=== PATIENT | male | born 1960 | race Caucasian/White ===

== ENCOUNTER 2024-06-13 08:31 | Emergency (ER) | payer OTHER, SELFPAY ==
[2024-06-13 08:32] VITALS: BP 119/80; PULSE 73; RESP 16; TEMP 36.2; O2SAT 97; BMI 39.9
--- NOTE | 2024-06-13 08:42 | EDS_ITS ---
HPI History of Present Illness Chief Complaint: Abscess Informant: patient Narrative Narrative: 64-year-old male presenting to the emergency room with chief complaint of abscess. Patient states that for about a month he has had some swelling in the right trapezius shoulder area. He made an appointment with dermatology. He has had a lipoma on left forearm and he felt it was similar. Few days before Robbi he began to notice that it was turning red and more painful. This progressively gotten worse and is presenting here today. He notes an allergy to Bactrim does not recall what the reaction was. No reported fevers. He states he does not have a pituitary gland and takes steroid medications. PFSH PFSH Home Medications ?Medication ?Instructions ?Recorded ?Last Taken ?Type doxycycline monohydrate 100 mg 100 mg PO BID #14 CAPSULES 06/13/24 Unknown Rx capsule oxycodone-acetaminophen 5 mg-325 1 tab PO Q6H PRN PRN Pain 3 days 06/13/24 Unknown Rx mg tablet #12 TABLETS Allergy/AdvReac Type Severity Reaction Status Date / Time sulfamethoxazole (From Allergy Unknown NEEDS Verified 06/13/24 08:34 Bactrim) FOLLOW-UP trimethoprim (From Bactrim) Allergy Unknown NEEDS Verified 06/13/24 08:34 FOLLOW-UP Social History Smoking Status: Current every day smoker tobacco type: cigarettes ROS ROS ED Constitutional Constitutional ED: Denies chills, fever(s) or weight loss Eyes Eyes: Denies change in vision or diplopia ENT ENT ED: Denies ear pain, rhinorrhea or sore throat Cardiovascular Cardiovascular: Denies chest pain, orthopnea, palpitations or racing heartbeat Respiratory/Chest Respiratory/Chest: Denies cough, dyspnea or orthopnea Gastrointestinal Gastrointestinal: Denies abdominal pain, diarrhea, nausea or vomiting Genitourinary Genitourinary ED: Denies dysuria, hematuria or urinary frequency Musculoskeletal Musculoskeletal: Denies arthralgias or myalgias Integumentary Reports abscess; Denies rash Neurologic Neurologic: Denies headache(s) or weakness Psychiatric Psychiatric: Denies anxiety, depression, suicidal ideation or suicidal thoughts Endocrine Endocrinology: Denies polydipsia, polyphagia or polyuria Allergic/Immunologic Allergic/Immunologic ED: Denies mouth swelling, tongue swelling or urticaria EXAM Physical Exam Const Vital Signs: 06/13/24 08:32 Temperature 97.2 F L Temperature Source Temporal Pulse Rate 73 Respiratory Rate 16 Blood Pressure 119/80 Blood Pressure Mean 93 Pulse Ox 97 Oxygen Delivery Method Room Air Positive well nourished and well developed General Appearance ED: well developed HEENT Reports normocephalic, head/scalp atraumatic and moist mucous membranes Eyes PERRL and EOMs intact bilaterally Neck no lymphadenopathy, supple and no JVD Resp normal respiratory effort and clear to auscultation bilaterally Cardio regular rate, regular rhythm and no murmurs GI normal to inspection, nondistended, normoactive bowel sounds and non-tender Palpation: soft Back/Spine no CVA tenderness and normal ROM Extremity normal to inspection General Extremety ED: Negative for edema General Extremity: Negative for edema Neuro oriented x3 and CN's II-XII intact bilaterally Sensorium / Orientation: alert Motor Exam: strength 5/5 throughout Psych mental status grossly normal Mood & Affect: Negative for depressed or tearful Skin no wounds Skin Narrative: There is a 3 cm rounded apparent abscess in the right trapezius midclavicular line region. There is some mild surrounding erythema. Tender to palpation. MDM MDM MDM Narrative Medical decision making narrative: Differential diagnosis includes but not limited to abscess infected sebaceous cyst ingrown hair cellulitis Patient provided informed consent for incision and drainage. Wound was washed with Betadine and allowed to dry. 1% lidocaine was used to anesthetize the area. A cruciate incision was made with an 11 blade. I was able to dissect down to the cyst but the cyst appears to have already ruptured. Thick fluid consistent with a sebaceous cyst was removed. Pieces of the cell wall were removed. Irrigation was performed and packing with iodoform gauze was placed. Patient was placed on doxycycline. Wound culture was obtained. He was advised this will most likely recur and to follow-up with dermatology. 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 This is more of a localized sebaceous cyst infection rather than systemic. History & Record Review Discussion w/independent historian: Patient Discharge Plan Triage Chief Complaint: Abscess ED Provider: Rashel Méndez Dx/Rx/DC Orders Clinical Impression: Infected sebaceous cyst of skin Instructions: Epidermoid Cyst Infect Antibiotics Prescriptions: New oxycodone-acetaminophen 5-325 mg tablet 1 tab PO Q6H PRN PRN (Reason: Pain) 3 Days Qty: 12 0RF doxycycline monohydrate 100 mg capsule 100 mg PO BID Qty: 14 0RF Primary Care Provider: Semaj Ray Referrals: Semaj Ray MD [Primary Care Provider] - Activity Restrictions/Additional Instructions: In 48 to 72 hours get in the shower and pull the packing. He will noticed that the wound continues to ooze over the next day or so. Please follow-up with dermatology as scheduled Print Language: Swazi Disposition Disposition: Home, Self Care
[2024-06-13] MEDS: Lidocaine 1% (20 ml mdv) 20 ML Vial INFILT (08:45)
[2024-06-13 09:37] VITALS: BP 160/62; PULSE 77; RESP 16; TEMP 36.8; O2SAT 99
== END 2024-06-13 09:42 | disposition home or self-care (01) ==
PROVIDERS: Emergency Provider Emergency Medicine; PCP Family Medicine; Visit Provider Emergency Medicine
DX: L72.3 Sebaceous cyst (principal); L02.413 Cutaneous abscess of right upper limb; F17.210 Nicotine dependence, cigarettes, uncomplicated
CPT/HCPCS: 10060; 87070; 87205; 99282

== ENCOUNTER 2024-12-11 18:52 | Emergency (ER) | payer OTHER, SELFPAY ==
[2024-12-11 18:52] VITALS: BP 130/76; PULSE 86; RESP 18; TEMP 36.9; O2SAT 98; BMI 41.2
--- NOTE | 2024-12-11 19:17 | EDS_ITS ---
HPI History of Present Illness Chief Complaint: General Illness Detail of Chief Complaint: Bilateral flank/back pain, dysuria and right inguinal pain Informant: patient Onset/Context/Timing Onset: Days Context: Sudden Onset Timing: Continuous Quality: Pain Location: Right and left lower back/flank and right groin Current Severity: Mild Maximum Severity: Moderate Worsened by: Movement Relieved by: If he lies on 1 side the pain that is improved. He then rotates. Associated Symptoms Associated Symptoms: Dysuria and frequency Narrative Narrative: Patient is a 64-year-old male. He has history of renal/ureteral lithiasis. He presents because of fatigue, bilateral back pain that is worse with movement and the side that he is lying on. When the side gets up his pain-free he rotates. He denies bowel bladder dysfunction. He denies radicular pain. Denies foot drop. He denies rash. Does have history of renal ureterolithiasis. There is no history of trauma. Has not noted fullness or mass in the groin area. He denies fever, chills night sweats. Denies weight gain or weight loss. He denies bone pain. Prior similar symptoms: No Recent Illness/Hospitalization: No PFSH PFS Medical History Type 2 diabetes mellitus Home Medications ?Medication ?Instructions ?Recorded ?Last Taken ?Type doxycycline monohydrate 100 mg 100 mg PO BID #14 CAPSU LES 06/13/24 Unknown Rx capsule oxycodone-acetaminophen 5 mg-325 1 tab PO Q6H PRN PRN Pain 3 days 06/13/24 Unknown Rx mg tablet #12 TABLETS Allergy/AdvReac Type Severity Reaction Status Date / Time sulfamethoxazole (From Allergy Unknown NEEDS Verified 12/11/24 18:53 Bactrim) FOLLOW-UP trimethoprim (From Bactrim) Allergy Unknown NEEDS Verified 12/11/24 18:53 FOLLOW-UP Family History no significant family his Surgical History History of surgical removal of pituitary gland Social History Smoking Status: Former smoker ROS ROS ED Constitutional Constitutional ED: Denies chills, fever(s), subjective, sweats or weight loss Eyes Eyes: Denies blurry vision or change in vision Cardiovascular Cardiovascular: Denies chest pain or palpitations Respiratory/Chest Respiratory/Chest: Denies cough, dyspnea or dyspnea on exertion Gastrointestinal Gastrointestinal: Reports abdominal pain; Denies constipation, diarrhea, melena, nausea or vomiting Genitourinary Genitourinary ED: Reports dysuria, hematuria and urinary frequency Musculoskeletal Musculoskeletal: Reports back pain; Denies arthralgias, myalgias or neck pain Integumentary Denies rash Neurologic Neurologic: Reports other Details: Patient reports fatigue. He states he has been seeing his after work because he is in the hospital. ; Denies headache(s) or paresthesias Psychiatric Psychiatric: Denies anxiety or depression Hematologic/Lymphatic Hematologic/Lymphatic: Reports systems reviewed and no addt'l complaints, except as documented EXAM Physical Exam Const Vital Signs: 12/11/24 18:52 12/11/24 19:07 Temperature 98.5 F Temperature Source Oral Pulse Rate 86 Respiratory Rate 18 Respiratory Effort Normal Respiratory Pattern Normal Blood Pressure 130/76 H Blood Pressure Mean 94 Pulse Ox 98 Oxygen Delivery Method Room Air Positive well nourished and well developed Constitutional Narrative: BMI is 41.2. Blood pressure slightly elevated. General Appearance ED: well developed HEENT Reports moist mucous membranes HEENT Narrative: HEENT exam is grossly unremarkable. Eyes PERRL and EOMs intact bilaterally General Eye ED: Negative for pale conjunctiva or scleral icterus Neck supple and no JVD Resp normal respiratory effort and clear to auscultation bilaterally Cardio regular rate, regular rhythm, S1 normal heart sound, S2 normal heart sound and no murmurs GI normal to inspection, nondistended, normoactive bowel sounds, non-distended and no masses; Negative for non-tender or hepatosplenomegaly GI Narrative: There are some mild tenderness in suprapubic area and right upper quadrant. He is status post cholecystectomy. Auscultation: hypoactive bowel sounds Palpation: soft Rectal Exam: normal sphincter tone, prostate normal and other Other Details: Stool is brown. There is no obvious fissures fistulas or hemorrhoids noted. This was performed because he reported bright red blood after bowel movement. He has had fissure and anal in the past. Narrative: Testes are centered bilaterally. No testicular tenderness. There are some tenderness of the vas deferens on the right. There is no evidence of a hernia. There is no inguinal lymphadenopathy. Back/Spine no CVA tenderness Extremity normal to inspection General Extremety ED: Negative for edema or tenderness General Extremity: Negative for edema Neuro oriented x3 Sensorium / Orientation: alert Psych mental status grossly normal Skin no rashes or lesions noted, no wounds and skin turgor normal General Skin Exam: elasticity normal MDM MDM MDM Narrative Medical decision making narrative: This may be fatigue also need to worry about sepsis UTI malnourishment electrolyte abnormality with him being diabetic we will obtain competence metabolic panel to assess glucose, CO2 anion gap and renal function. Lab Data Attestation: I reviewed the patient's lab results. Lab results narrative: CBC is unremarkable. Competence of metabolic panel is normal. UA is positive for protein, occult blood and leukoesterase on macro. Nitrites was negative. Micro is pending. Labs: Laboratory Results - last 24 hr 12/11/24 12/11/24 19:06 19:50 WBC 8.5 RBC 5.62 Hgb 16.3 Hct 47.3 MCV 84.2 MCH 29.0 MCHC 34.5 RDW Std Deviation 36.7 RDW Coeff of Halima 12.2 Plt Count 194 MPV 10.8 Immature Gran % (Auto) 0.200 Neut % (Auto) 44.1 L Lymph % (Auto) 39.9 [place] % (Auto) 12.7 H Eos % (Auto) 2.5 Baso % (Auto) 0.6 Absolute Neuts (auto) 3.8 Absolute Lymphs (auto) 3.40 Nucleated RBC % 0 Sodium 139 Potassium 4.5 Chloride 101 Carbon Dioxide 25.5 Anion Gap 13 BUN 12 Creatinine 1.19 Estim Creat Clear Calc 84.70 Est GFR (MDRD) Non-Af 69 BUN/Creatinine Ratio 10.1 Glucose 82 Calcium 9.7 Total Bilirubin 0.55 AST 32 ALT 17 Alkaline Phosphatase 86 Total Protein 7.1 Albumin 3.8 Globulin 3.4 Albumin/Globulin Ratio 1.1 Urine Color Yellow Urine Clarity Clear Urine pH 6.0 Ur Specific [place] 1.015 Urine Protein 30 H Urine Glucose (UA) Normal Urine Ketones Negative Urine Occult Blood 10 H Urine Nitrite Negative Urine Bilirubin Negative Urine Urobilinogen Normal Ur Leukocyte Esterase 100 H Urine RBC 0-5 SEEN Urine WBC 10-25 SEEN Ur Squamous Epith Cells 0-5 SEEN Urine Bacteria 0 SEEN Urine Mucus RARE Microscopic Veals pyuria without bacteria. Therefore will not treat. Patient been informed of results. She was offered pain medicine, which she declined. Will discharge patient to home. He did report improvement after receiving IV ketorolac. Treatment and Re-Evaluation :: Documented in the laboratory section of the EMR Discharge Plan Triage Chief Complaint: General Illness ED Provider: Aidan Workman Dx/Rx/DC Orders Clinical Impression: Acute myofascial strain of lumbosacral region, Fatigue, Pyuria, Type 2 diabetes mellitus, Right inguinal pain Instructions: ED Back Sprain/Strain Prescriptions: No Action oxycodone-acetaminophen 5-325 mg tablet 1 tab PO Q6H PRN PRN (Reason: Pain) 3 Days Qty: 12 0RF doxycycline monohydrate 100 mg capsule 100 mg PO BID Qty: 14 0RF Primary Care Provider: Brayan Andrea Referrals: Brayan Andrea, [employer]IST[facility] [Primary Care Provider] - 3-5 Days if not improving Activity Restrictions/Additional Instructions: 1. Apply ice to your lower back 6-8 times a day 2. If you continue to have pain with urination follow-up with your doctor and have repeat tests Print Language: Wolof Disposition Disposition: Home, Self Care
[2024-12-11] MEDS: Ketorolac 15 MG/ML Vial IV (19:23)
--- OUTSIDE RECORDS SUMMARY | 2024-12-11 19:23 | XMS RPT_ITS | CCD ---
Author Organization [facility] Care Team Providers Care Test Tech Name Role Phone Althea Yang Unavailable Unavailable Unavailable Unavailable Unavailable Jade Ram RN Unavailable Unavailable Althea Yang MD Primary Care Provider Althea Yang Unavailable Peri Wallace Unavailable Althea Yang MD Primary Care Provider [phone] MD PERI WALLACE Attending UnavailDr. Althea Gonzales Primary Care Unavailab ALTHEA Ledezma Referring Unavailable ALTHEA YANG Attending Unavailable ALTHEA YANG Primary Care Unavailable Jade Ram RN Unavailable Unavailable Althea Yang MD Primary Care Provider ALTHEA YANG Primary Care Unavailable ALTHEA YANG Primary Care Unavailable ALTHEA YANG Primary Care Unavailable TACOS ASH Attending Unavailable LULA ERNST Referring Unavaila ALTHEA Murray Primary Care Unavailable Althea Yang MD Unavailable Victoria Goyal Primary Care Provider Althea Yang Primary Care Unavailable Rashel Méndez Attending Unavailable Althea Yang MD Unavailable Victoria Goyal Primary Care Provider ALTHEA YANG Attending Unavailable ALTHEA YANG Referring Unavailable ALTHEA YANG Primary Care Unavailable VICTORIA ALEXANDRE Attending Unavailable VICTORIA ALEXANDRE Primary Care Unavailable VICTORIA ALEXANDRE Attending Unavailable VICTORIA ALEXANDRE Primary Care Unavailable VICTORIA ALEXANDRE Attending Unavailable VICTORIA ALEXANDRE Primary Care Unavailable VICTORIA ALEXANDRE Attending Unavailable VICTORIA ALEXANDRE Primary Care Unavailable VICTORIA ALEXANDRE Attending Unavailable VICTORIA ALEXANDRE Primary Care Unavailable PEMA MAGUIRE Attending Unavailable ALTHEA YANG Referring Unavailable ALTHEA YANG Primary Care Unavailable ALTHEA YANG Referring Unavailable ALTHEA YANG Primary Care Unavailable AMALIA KNIGHT Attending Unavailable Allergies Allergy Classification Reported Allergen(s) Allergy Type Date of Onset Reaction(s) Facility Sulfamethoxazole / Trimethoprim (1 source) Sulfamethoxazole / Trimethoprim; Translations: [Bactrim] Drug Allergy [facility] Work Phone: (20 sources) Sulfamethoxazole / Trimethoprim; Translations: [Bactrim] Drug Allergy 07-26-19 23 Fever [facility] (11 sources) Sulfamethoxazole / Trimethoprim; Translations: [SULFAMETHOXAZOLE-TR IMETHOPRIM] Drug Allergy 06-13-20 14 Fever, Headache [facility] (1 source) Sulfamethoxazole / Trimethoprim Drug Allergy Unknown [facility] (15 sources) aspirin / butalbital / caffeine; Translations: [BUTALBITAL-ASPIRIN- CAFFEINE] Drug Allergy 01-19-20 14 Unknown [facility] (1 source) Sulfamethoxazole Drug Allergy 06-13-20 24 [facility] (2 sources) Trimethoprim; Translations: [TRIMETHOPRIM] Drug Allergy 06-13-20 24 [facility] (2 sources) Trimethoprim Drug Allergy 06-13-20 24 Unknown [facility] Work Phone: Medications Current Medications Medication Drug Class(es) Dates Sig (Normalized) Sig (Original) amoxicillin 875 mg / clavulanate 125 mg oral tablet (1 source) Penicillin-class Antibacterial Start: 05-13-2022 End: 05-20-2022 take 1 tablet by mouth once daily Amoxicillin-Pot Clavulanate 875-125 MG Oral Tablet TAKE 1 TABLET EVERY 12 HOURS DAILY. Quantity: 14 Refills: 0 Ordered: 13-May-2022 Nabeel Capone Start : 13-May-2022 End : 20-May-2022 Active aspirin 81 mg delayed release oral tablet (20 sources) Platelet Aggregation Inhibitor, Nonsteroidal Anti-inflammatory Drug Start: 07-17-2019 take 1 tablet by mouth once daily aspirin 81 mg EC tablet Take 1 tablet (81 mg) by mouth once daily. 07/17/2019 Active take 1 tablet by mouth once jade y aspirin 81 MG Tab Take 1 tablet by mouth daily. Active take 9 tablets by mouth once leeann ly aspirin 81 mg oral tablet ; orally once a day Quantity: 0 Refills: 0 Ordered: 24-Mar-2020 Judith Quarles Generic Substitution Allowed celecoxib 200 mg oral capsule (2 sources) Nonsteroidal Anti-inflammatory Drug Start: 02-17-2024 End: 03-18-2024 take 1 capsule by mouth once daily celecoxib (CeleBREX) 200 mg capsule Indications: Arthropathy of cervical facet joint Take 1 capsule (200 mg) by mouth once daily. 30 capsule 02/17/2024 03/18/2024 Active cholecalciferol 0.125 mg oral tablet (20 sources) Vitamin D Start: 02-29-2020 take 1 tablet by mouth once daily cholecalciferol (Vitamin D-3) 5,000 Units tablet Take 1 tablet (125 mcg) by mouth once daily. 02/29/2020 Active Start: 02-29-2020 take 1 tablet by keely once daily cholecalciferol (Vitamin D-3) 25 MCG (1000 UT) tablet Take 1 tablet (25 mcg) by mouth once daily. 0 02/29/2020 Active End: 08-14-2023 take 1 capsule by mouth once daily cholecalciferol (Vitamin D-3) 10 MCG (400 UNIT) tablet Take 1 capsule by mouth once daily. 0 08/14/2023 Discontinued (Therapy completed) Vitamin D3 ; 400 0 orally once a day Quantity: 0 Refills: 0 Ordered: 19-May-2022 Amy Lucas Generic Substitution Allowed Cholecalciferol (vitamin D) 4000 Units capsule (8 sources) Cholecalciferol (vitamin D) 4000 Units capsule Take 2,000 Units by mouth daily. Active take 1 capsule by mouth once Cho lecalciferol (vitamin D) 4000 Units capsule Take 1 capsule by mouth daily. Per Dr. Sheffield, Pt. Is to decrease to 2,000 units per day starting 08/31/23. Active take 1 capsule by mouth once leeann ly Cholecalciferol (vitamin D) 4000 Units capsule Take 1 capsule by mouth. daily Active take 1 capsule by mouth once leeann ly Cholecalciferol (vitamin D) 4000 Units capsule Take 1 capsule by mouth. daily 0 Active take 1 capsule by mouth once leeann ly Cholecalciferol (vitamin D) 4000 Units capsule Take 4,000 Units by mouth. daily 0 Active clindamycin 300 mg oral capsule (2 sources) Lincosamide Antibacterial Start: 06-22-2024 End: 07-06-2024 take 1 capsule by mouth four times daily clindamycin (Cleocin) 300 mg capsule Indications: Abscess Take 1 capsule (300 mg) by mouth 4 times a day for 14 days. 28 capsule 1 06/22/2024 07/06/2024 Active esomeprazole 40 mg delayed release oral capsule (20 sources) Proton Pump Inhibitor Start: 07-17-2019 End: 08-19-2025 take 1 capsule by mouth once daily esomeprazole (NexIUM) [address] capsule Indications: Gastroesophageal reflux disease without esophagitis Take 1 capsule (40 mg) by mouth once daily. 90 capsule 3 08/19/2024 08/19/2025 Active take 1 capsule by mouth every ot her day esomeprazole 40 mg oral delayed release capsule ; 1 cap(s) orally every other day Quantity: 0 Refills: 0 Ordered: 19-May-2022 Amy Lucas Generic Substitution Allowed hydrocortisone 5 mg oral tablet (20 sources) Corticosteroid Start: 01-02-2024 End: 08-30-2024 Hydrocortisone 5 MG tablet Indications: Hypogonadotropic hypogonadism , Panhypopituitarism , Adrenal insufficiency TAKE 3 TABLETS BY MOUTH IN MORNING, 1 TABLET IN AFTERNOON, AND 1 TABLET IN EVENING. DOUBLE DOSE WHEN SICK DIRECTED. 450 tablet 4 08/30/2024 Active Start: 12-03-2022 Hydrocortisone 5 MG tablet Indications: Panhypopituitarism TAKE 3 TABLETS (15 MG) BY MOUTH IN MORNING, 1 TABLET (5 MG) IN AFTERNOON, AND 1 TABLET (5 MG) IN EVENING. DOUBLE DOSE WHEN SICK DIRECTED. 450 tablet 4 12/03/2022 Active Start: 03-19-2022 hydrocortisone 5 MG tablet Indications: Panhypopituitarism TAKE 3 TABLETS (15 MG) BY MOUTH IN MORNING, 1 TABLET (5 MG) IN AFTERNOON, AND 1 TABLET (5 MG) IN EVENING. DOUBLE DOSE WHEN SICK DIRECTED. 450 tablet 2 03/19/2022 Active Start: 07-17-2019 take 1 tablet by keely th three times daily hydrocortisone (Cortef) 5 mg tablet Take 1 tablet (5 mg) by mouth 3 times a day. Patient reported that if he is sick, he can take up to double the amount he normally does. 07/17/2019 Active Start: 07-17-2019 take 1 tablet by keely th twice daily hydrocortisone (Cortef) 5 mg tablet Take 1 tablet (5 mg) by mouth 2 times a day. 0 07/17/2019 Active Start: 07-17-2019 take 2.5 tablets by mouth once daily in the morning, then take 1 tablet by mouth once daily in the evening Hydrocortisone 5 MG Oral Tablet 2.5 tabs qam, 1 qnoon, 1 q evening Quantity: 0 Refills: 0 Ordered: 17-Jul-2019 DO Start : 17-Jul-2019 Active take 15 mg by mouth once daily hydrocortisone ; 15 milligram(s) orally once a day Quantity: 0 Refills: 0 Ordered: 24-Mar-2020 Cutlip, Judith Generic Substitution Allowed levothyroxine sodium 0.2 mg oral tablet (20 sources) l-Thyroxine Start: 07-17-2019 End: 08-30-2024 take 1 tablet by mouth once daily levothyroxine (Synthroid, Levoxyl) 200 mcg tablet Take 1 tablet (200 mcg) by mouth once daily. 07/17/2019 Active take 1 tablet by mouth once jade y levothyroxine 200 mcg (0.2 mg) oral tablet ; 1 tab(s) orally once a day Quantity: 0 Refills: 0 Ordered: 24-Mar-2020 Cutlip, Judith Generic Substitution Allowed metoprolol tartrate 25 mg oral tablet (20 sources) beta-Adrenergic Lucy Start: 07-17-2019 End: 08-19-2025 take 0.5 tablet by mouth twice daily metoprolol tartrate (Lopressor) 25 mg tablet Indications: Primary hypertension Take 0.5 tablets (12.5 mg) by mouth 2 times a day. 90 tablet 3 08/19/2024 08/19/2025 Active Start: 07-17-2019 End: 08-14-2023 take 1 tablet by mouth twice daily metoprolol tartrate (Lopressor) 25 mg tablet Take 1 tablet (25 mg) by mouth twice a day. 0 07/17/2019 08/14/2023 Discontinued (Reorder) metoprolol 25 MG tab regular release Indications: Panhypopituitarism take 12.5 mg by mouth 2 times daily. 0 Active montelukast 10 mg oral tablet (1 source) Leukotriene Receptor Antagonist Start: 11-19-2024 End: 05-18-2025 take 1 tablet by mouth once daily at bedtime montelukast (Singulair) 10 mg tablet Indications: Allergy, initial encounter Take 1 tablet (10 mg) by mouth once daily at bedtime. 30 tablet 5 11/19/2024 05/18/2025 Active nirmatrelvir-riton avir (Paxlovid) 300 mg (150 mg x 2)-100 mg tablet therapy pack (2 sources) Start: 06-23-2023 End: 06-28-2023 take 3 tablets by mouth twice daily nirmatrelvir-ritona vir (Paxlovid) 300 mg (150 mg x 2)-100 mg tablet therapy pack Indications: COVID-19 Take 3 tablets by mouth 2 times a day for 5 days. Follow the instructions on the package 30 tablet 0 06/23/2023 06/28/2023 Active rosuvastatin calcium 10 mg oral tablet (20 sources) HMG-CoA Reductase Inhibitor Start: 02-21-2015 End: 08-19-2025 take 1 tablet by mouth once daily at bedtime rosuvastatin (Crestor) 10 mg tablet Indications: Familial hyperlipidemia Take 1 tablet (10 mg) by mouth once daily at bedtime. 90 tablet 3 08/19/2024 08/19/2025 Active semaglutide 0.25 mg or 0.5 mg (2 mg/3 mL) pen injector (4 sources) Start: 08-19-2024 End: 02-03-2025 inject 0.5 mg by subcutaneous injection every week semaglutide 0.25 mg or 0.5 mg (2 mg/3 mL) pen injector Indications: Type 2 diabetes mellitus without complication, without long-term current use of insulin Inject 0.5 mg under the skin 1 (one) time per week. 9 mL 1 08/19/2024 02/03/2025 Active Start: 08-19-2024 End: 02-03-2025 inject 0.5 mg by subcutaneous injection every week semaglutide 0.25 mg or 0.5 mg (2 mg/3 mL) pen injector Indications: Type 2 diabetes mellitus without complication, without long-term current use of insulin (Multi) Inject 0.5 mg under the skin 1 (one) time per week. 9 mL 1 08/19/2024 02/03/2025 Active Start: 10-07-2022 End: 11-20-2022 inject 0.25 mg by subcutaneous injection every week, then inject 0.5 mg by subcutaneous injection every week semaglutide 0.25 mg or 0.5 mg (2 mg/3 mL) pen injector Indications: Type 2 diabetes mellitus without complication, without long-term current use of insulin (CMS/HCC) Inject 0.25 mg under the skin 1 (one) time per week for 14 days, THEN 0.5 mg 1 (one) time per week. 3 mL 1 10/07/2022 11/20/2022 Active Semaglutide, 1 MG/DOSE, 4 MG/3ML Solution Pen-injector (2 sources) Start: 11-30-2023 End: 11-29-2024 Semaglutide, 1 MG/DOSE, 4 MG/3ML Solution Pen-injector Inject 1 mg under the skin. 11/30/2023 11/29/2024 Active somatropin 12 mg cartridge (20 sources) Recombinant Human Growth Hormone Start: 08-30-2024 Somatropin (Humatrop e) 12 MG Cartridge DIAL AND INJECT (0.4) MG UNDERNEATH THE SKIN DAILY. 1 Each 08/30/2024 Active Start: 02-25-2023 End: 08-22-2023 inject 0.4 mg by subcutaneous injection once daily Somatropin (Humatrope) 6 MG Cartridge Indications: Growth hormone deficiency (human) Inject 0.4 mg under the skin daily. 8 Each 02/25/2023 08/22/2023 Discontinued (Discontinued by another clinician (suppress cancel msg)) Start: 03-12-2022 End: 08-16-2022 Somatropin 6 MG Cartridge In ject 0.4 mg as directed daily. 8 Each 3 08/16/2022 Active Start: 07-17-2019 End: 08-19-2024 somatropin (Humatrope) 12 mg (36 unit) cartridge Inject 0.4 mg as directed in the morning. 07/17/2019 08/19/2024 Discontinued (Therapy completed) Start: 07-17-2019 Humatrope 12 M G SOLR INJECT 0.4 MG Daily Quantity: 0 Refills: 0 Ordered: 17-Jul-2019 DO Start : 17-Jul-2019 Active somatropin (Shona trope) 12 mg (36 unit) cartridge Inject as directed. , INJECT 0.2 MG JADE Active 60 actuat testosterone 20.25 mg/actuat topical gel (20 sources) Androgen Start: 02-11-2024 End: 08-30-2024 Testosterone 1.62 % Gel Indications: Hypogonadotropic hypogonadism , Panhypopituitarism , Adrenal insufficiency APPLY 2 PUMPS TO SKIN DAILY 75 g 5 08/30/2024 Active Start: 07-14-2023 Testosterone 1 .62 % Gel Indications: Hypogonadotropic hypogonadism , Panhypopituitarism , Adrenal insufficiency APPLY 2 PUMPS TO SKIN DAILY 75 g 5 07/14/2023 Active Start: 07-05-2022 End: 12-03-2022 Testosterone 20.25 MG/ACT (1 .62%) Gel gel Indications: Hypogonadotropic hypogonadism , Panhypopituitarism , Adrenal insufficiency APPLY 2 PUMPS ON SKIN DAILY 75 g 5 07/05/2022 12/03/2022 Active Start: 12-19-2021 End: 05-21-2022 Testosterone 20.25 MG/ACT (1 .62%) Gel gel Indications: Hypogonadotropic hypogonadism , Panhypopituitarism , Adrenal insufficiency APPLY 2 PUMPS ON SKIN DAILY 75 g 5 12/19/2021 05/21/2022 Active Start: 02-29-2020 testosterone 2 0.25 mg/1.25 gram (1.62 %) gel in metered-dose pump Place 1 Application on the skin in the morning. 02/29/2020 Active Start: 02-29-2020 Testosterone 2 0.25 MG/ACT (1.62%) Transdermal Gel APPLY TWO PUMP PRESSES ONE TIME DAILY DIRECTED Quantity: 0 Refills: 0 Ordered: 29-Feb-2020 DO Start : 29-Feb-2020 Active testosterone 20. 25 mg/1.25 g (1.62%) transdermal gel ; 1 packet(s) orally 2 times a day Quantity: 0 Refills: 0 Ordered: 19-May-2022 Amy Lucas Generic Substitution Allowed Completed/Discontinued Medications Medication Drug Class(es) Dates Sig (Normalized) Sig (Original) acetaminophen 325 mg oral tablet (10 sources) Start: 06-23-2023 End: 06-23-2023 acetaminophen (Tylenol) tablet 975 mg take 2 tablets by mo uth every six hours as needed acetaminophen (Tylenol) 500 mg tablet Ta ke 2 tablets (1,000 mg) by mouth every 6 hours if needed for mild pain (1 - 3). Active azithromycin 250 mg oral tablet (8 sources) Macrolide Antimicrobial Start: 08-02-2022 Azithromycin 250 MG Oral Tablet TAKE 2 TABLETS ON DAY 1 THEN TAKE 1 TABLET A DAY FOR 4 DAYS. Quantity: 1 Refills: 0 Ordered: 02-Aug-2022 Althea Yang MD Start : 02-Aug-2022 Active Start: 12-25-2021 Azithromycin 2 50 MG Oral Tablet TAKE 2 TABLETS ON DAY 1 THEN TAKE 1 TABLET A DAY FOR 4 DAYS. Quantity: 1 Refills: 1 Ordered: 25-Dec-2021 Althea Yang MD Start : 25-Dec-2021 Active Start: 08-16-2020 Azithromycin 2 50 MG Oral Tablet TAKE 2 TABLETS ON DAY 1 THEN TAKE 1 TABLET A DAY FOR 4 DAYS. Quantity: 1 Refills: 1 Ordered: 16-Aug-2020 Althea Yang MD Start : 16-Aug-2020 Active codeine phosphate 2 mg/ml / guaiFENesin 20 mg/ml oral solution (7 sources) Opioid Agonist Start: 12-25-2021 take 5-10 mL by mouth every four to six hours as needed for cough guaiFENesin AC 100-10 MG/5ML Oral Syrup TAKE 5 - 10 ML EVERY 4 TO 6 HOURS NEEDED FOR COUGH. Quantity: 240 Refills: 0 Ordered: 25-Dec-2021 Althea Yang MD Start : 25-Dec-2021 Active Start: 08-15-2020 take 5-10 mL by mout h every four to six hours as needed for cough guaiFENesin AC 100-10 MG/5ML Oral Syrup TAKE 5 - 10 ML EVERY 4 TO 6 HOURS NEEDED FOR COUGH. Quantity: 240 Refills: 0 Ordered: 15-Aug-2020 Althea Yang MD Start : 15-Aug-2020 Active dexamethasone 6 mg oral tablet (4 sources) Corticosteroid Start: 06-23-2023 End: 02-17-2024 take 1 tablet by mouth once daily dexAMETHasone (Decadron) 6 mg tablet Indications: COVID-19 Take 1 tablet (6 mg) by mouth once daily for 7 days. 7 tablet 06/23/2023 02/17/2024 Discontinued (Therapy completed) doxycycline monohydrate 100 mg oral capsule (3 sources) Tetracycline-class Drug Start: 06-13-2024 End: 08-19-2024 take 1 capsule by mouth every twelve hours doxycycline (Monodox) 100 mg capsule Take 1 capsule (100 mg) by mouth every 12 hours. 06/13/2024 08/19/2024 Discontinued (Therapy completed) fluticasone propionate 0.05 mg/actuat metered dose nasal spray (2 sources) Corticosteroid Start: 05-13-2022 take 1 spray(s) nasal route twice daily as needed Fluticasone Propionate 50 MCG/ACT Nasal Suspension 1 spray in each nostril twice daily as needed for post-nasal drip Quantity: 1 Refills: 3 Ordered: 13-May-2022 Nabeel Capone Start : 13-May-2022 Active gadoterate Meglumine (DOTAREM) 5 MMOL/10ML injection 3-60 mL (1 source) Start: 08-16-2022 End: 08-16-2022 gadoterate Meglumine (DOTAREM) 5 MMOL/10ML injection 3-60 mL iohexol (OMNIPaque) 350 mg iodine/mL solution 67 mL (1 source) Start: 06-23-2023 End: 06-23-2023 iohexol (OMNIPaque) 350 mg iodine/mL solution 67 mL Lidocaine (13 sources) Antiarrhythmic, Amide Local Anesthetic Start: 09-09-2024 End: 09-09-2024 lidocaine (Xylocaine) 10 mg/mL (1 %) injection 0.25 mL Start: 09-09-2024 End: 09-09-2024 0.25 mL, injection, Once PRN Procedure, Starting on [facility] 09/09/24 at 1642, For 1 dose Start: 07-17-2019 Lidoderm 5 % E xternal Patch APPLY 1 PATCH TO THE AFFECTED AREA AND LEAVE IN PLACE FOR 12 HOURS, THEN REMOVE AND LEAVE OFF FOR 12 HOURS. Quantity: 0 Refills: 0 Ordered: 17-Jul-2019 DO Start : 17-Jul-2019 Active 2 ml ondansetron 2 mg/ml injection (6 sources) Serotonin-3 Receptor Antagonist Start: 06-23-2023 End: 06-23-2023 ondansetron (Zofran) injection 4 mg Start: 10-17-2021 take 1 tablet by keely three times daily as needed Ondansetron 8 MG Oral Tablet Disintegrating TAke one tablet up to three times a day as needed. Quantity: 15 Refills: 0 Ordered: 17-Oct-2021 Zee MEDRANO, MPH, Daniel Darby Start : 17-Oct-2021 Active semaglutide (OZEMPIC) 1 mg/dose (4 mg/3 mL) pen injector (8 sources) Start: 11-30-2023 End: 08-19-2024 inject 1 mg by subcutaneous injection every week semaglutide (OZEMPIC) 1 mg/dose (4 mg/3 mL) pen injector Indications: Type 2 diabetes mellitus without complication, without long-term current use of insulin (Multi) Inject 1 mg under the skin 1 (one) time per week. 9 mL 3 11/30/2023 08/19/2024 Discontinued (Side effects) Start: 11-30-2023 End: 11-29-2024 inject 1 mg by subcutaneous injection every week semaglutide (OZEMPIC) 1 mg/dose (4 mg/3 mL) pen injector Indications: Type 2 diabetes mellitus without complication, without long-term current use of insulin (Multi) Inject 1 mg under the skin 1 (one) time per week. 9 mL 3 11/30/2023 11/29/2024 Active Start: 01-11-2023 End: 01-11-2024 inject 1 mg by subcutaneous injection every week semaglutide (OZEMPIC) 1 mg/dose (4 mg/3 mL) pen injector Indications: Type 2 diabetes mellitus without complication, without long-term current use of insulin (CMS/HCC) Inject 1 mg under the skin 1 (one) time per week. 9 mL 3 01/11/2023 01/11/2024 Active 1000 ml sodium chloride 9 mg /ml injection (2 sources) Start: 06-23-2023 End: 06-23-2023 sodium chloride 0.9 % bolus 1,000 mL Start: 08-16-2022 End: 08-16-2022 Sodium chloride (PF) 0.9 % i njection 1-100 mL 1 ml triamcinolone acetonide 40 mg/ml injection (4 sources) Corticosteroid Start: 09-09-2024 End: 09-09-2024 triamcinolone acetonide (Kenalog-40) injection 10 mg Start: 09-09-2024 End: 09-09-2024 10 mg, intra-articular, Once PRN Procedure, Starting on Mee 09/09/24 at 1642, For 1 dose Start: 11-01-2021 inject 1 mL by intra muscular injection once Triamcinolone Acetonide 40 MG/ML Injection Suspension INJECT 1 ML INTRAMUSCULARLY ONCE. Quantity: 0 Refills: 0 Ordered: 01-Nov-2021 Althea Yang MD Start : 01-Nov-2021 Complete Start: 11-22-2020 inject 1 mL by intra muscular injection once Triamcinolone Acetonide 40 MG/ML Injection Suspension INJECT 1 ML INTRAMUSCULARLY ONCE. Quantity: 0 Refills: 0 Ordered: 22-Nov-2020 Althea Yang MD Start : 22-Nov-2020 Complete Problems Active Problems Problem Classification Problem Date Documented Da te Episodic/Chronic Allergic reactions (4 sources) Allergy status to sulfonamides status; Translations: [Allergic condition] Onset: 2 11-19-2024 Episodic Diabetes mellitus with complications (8 sources) Type II diabetes mellitus uncontrolled; Translations: [Type 2 diabetes mellitus, uncontrolled] Onset: 4 02-16-2014 Chronic Diabetes mellitus without complication (20 sources) Type 2 diabetes mellitus; Translations: [Type 2 diabetes mellitus without complications] Onset: 3 Chronic Disorders of lipid metabolism (20 sources) Hyperlipidemia; Translations: [Other and unspecified hyperlipidemia] Onset: 2 10-07-2022 Chronic Esophageal disorders (20 sources) Gastroesophageal reflux disease; Translations: [Esophageal reflux] Onset: 3 10-07-2022 Chronic Essential hypertension (20 sources) Hypertensive disorder; Translations: [Unspecified essential hypertension] Onset: 3 07-26-2022 Chronic Headache; including migraine (2 sources) Headache; including migraine; Translations: [Headache, unspecified] Onset: 3 Nutritional deficiencies (20 sources) Vitamin D deficiency; Translations: [Unspecified vitamin D deficiency] Onset: 8 08-15-2017 Chronic Other aftercare (20 sources) Patient encounter status; Translations: [Long-term (current) use of other medications] Episodic Other and unspecified benign neoplasm (1 source) Hyperplastic polyp of large intestine; Translations: [Polyp of colon] 10-07-2022 Episodic Other connective tissue disease (3 sources) Tendinitis of flexor tendon of hand; Translations: [Other enthesopathies, not elsewhere classified] Onset: 5 09-09-2024 Episodic Other endocrine disorders (20 sources) Panhypopituitarism; Translations: [Hypopituitarism] Onset: 4 02-16-2014 Chronic Other endocrine disorders (14 sources) Growth hormone deficiency; Translations: [Hypopituitarism] Onset: 5 06-13-2015 Chronic Other endocrine disorders (14 sources) Hypogonadotropic hypogonadism; Translations: [Hypopituitarism] Onset: 7 01-29-2017 Chronic Other endocrine disorders (6 sources) Hypoadrenalism; Translations: [Unspecified adrenocortical insufficiency] Chronic Other endocrine disorders (5 sources) Hypopituitarism; Translations: [Hypopituitarism (Multi)] Onset: 7 Chronic Other endocrine disorders (3 sources) Unspecified adrenocortical insufficiency; Translations: [Unspecified adrenocortical insufficiency] Onset: 5 Chronic Other gastrointestinal disorders (2 sources) Diarrhea; Translations: [Diarrhea] 05-20-2022 Episodic Other nutritional; endocrine; and metabolic disorders (20 sources) Body mass index 40+ - severely obese; Translations: [Body Mass Index 40.0-44.9, adult] Onset: 4 02-16-2014 Chronic Other nutritional; endocrine; and metabolic disorders (1 source) Morbid obesity; Translations: [Morbid obesity] Chronic Other nutritional; endocrine; and metabolic disorders (9 sources) Severe obesity; Translations: [Morbid (severe) obesity due to excess calories] Onset: 3 08-14-2023 Chronic Other nutritional; endocrine; and metabolic disorders (2 sources) Morbid (severe) obesity due to excess calories; Translations: [Morbid (severe) obesity due to excess calories (Multi)] Onset: 4 Chronic Other nutritional; endocrine; and metabolic disorders (2 sources) Body mass index (BMI) 39.0-39.9, adult; Translations: [Body mass index (BMI) 39.0-39.9, adult] Onset: 4 Chronic Other upper respiratory disease (20 sources) Allergic rhinitis; Translations: [Allergic rhinitis, cause unspecified] Onset: 3 10-07-2022 Chronic Other upper respiratory disease (2 sources) Allergic rhinitis, unspecified; Translations: [Allergic rhinitis, unspecified] Onset: 3 Chronic Other upper respiratory infections (2 sources) Sinusitis; Translations: [Unspecified sinusitis (chronic)] Chronic Other upper respiratory infections (3 sources) Recurrent acute sinusitis; Translations: [Acute maxillary sinusitis] Episodic Residual codes; unclassified (20 sources) Sleep apnea; Translations: [Unspecified sleep apnea] Onset: 4 03-18-2022 Chronic Residual codes; unclassified (13 sources) Obstructive sleep apnea syndrome; Translations: [Obstructive sleep apnea (adult) (pediatric)] Onset: 6 Chronic Residual codes; unclassified (2 sources) Obstructive sleep apnea (adult) (pediatric); Translations: [Obstructive sleep apnea (adult) (pediatric)] Onset: 3 Chronic Spondylosis; intervertebral disc disorders; other back problems (3 sources) Arthropathy of cervical spine facet joint; Translations: [Spondylosis without myelopathy or radiculopathy, cervical region] Onset: 4 02-17-2024 Chronic Syncope (2 sources) Syncope 05-19-2022 Comment on above: SYNCOPE, DIARRHEA Thyroid disorders (20 sources) Secondary hypothyroidism; Translations: [Other specified acquired hypothyroidism] Onset: 2 10-07-2022 Chronic Unclassified (1 source) 6 MONTHS 03-21-2022 Comment on above: 6 MONTHS Unclassified (1 source) Contact with and (suspected) exposure to COVID-19; Translations: [Contact with and (suspected) exposure to COVID-19] Onset: 2 Unclassified (2 sources) Injections; Translations: [Injections] Onset: 5 Viral infection (12 sources) Disease caused by 2019-nCoV; Translations: [Other specified viral infection] Resolved: 2 06-23-2023 Episodic Viral infection (2 sources) COVID-19; Translations: [COVID-19] Onset: 4 Past or Other Problems Problem Classification Problem Date Documented Da te Episodic/Chronic Blindness and vision defects (10 sources) Diplopia; Translations: [Diplopia] Onset: 01-18-2014 Resolved: 02-10-2023 02-10-2023 Episodic Cancer; other and unspecified primary (20 sources) History of neoplasm of pituitary gland; Translations: [Personal history of other endocrine, metabolic, and immunity disorders] Onset: 07-26-2022 Resolved: 02-17-2024 10-07-2022 Episodic Chronic kidney disease (13 sources) Chronic kidney disease stage 3A ; Translations: [Chronic kidney disease, Stage III (moderate)] Resolved: 09-14-2021 Chronic Chronic obstructive pulmonary disease and bronchiectasis (14 sources) Laryngotracheobronc hitis; Translations: [Bronchitis, not specified as acute or chronic] Resolved: 08-31-2020 Episodic Conditions associated with dizziness or vertigo (1 source) Dizziness and giddiness; Translations: [Dizziness and giddiness] Onset: 05-20-2022 Episodic Fluid and electrolyte disorders (3 sources) Dehydration; Translations: [Dehydration] Onset: 05-20-2022 05-20-2022 Episodic Headache; including migraine (20 sources) Frequent headache; Translations: [Headache] Onset: 07-26-2022 10-07-2022 Episodic Menopausal disorders (1 source) Hormone replacement therapy; Translations: [Hormone replacement therapy] Onset: 05-20-2022 Episodic Mood disorders (7 sources) Mood disorders Onset: 08-16-2022 Resolved: 08-30-2024 08-16-2022 Nausea and vomiting (19 sources) Nausea and vomiting; Translations: [Nausea with vomiting] Onset: 07-26-2022 Resolved: 10-07-2022 10-07-2022 Episodic Other aftercare (1 source) 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; Translations: [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] Onset: 05-20-2022 Episodic Other aftercare (1 source) Other half-way (current) drug therapy; Translations: [Other manager program management (current) drug therapy] Onset: 05-20-2022 Episodic Other and unspecified benign neoplasm (20 sources) Polyp of colon; Translations: [Benign neoplasm of colon] Onset: 07-26-2022 07-26-2022 Episodic Other and unspecified benign neoplasm (20 sources) Pituitary adenoma; Translations: [Benign neoplasm of pituitary gland] Onset: 02-10-2014 02-10-2014 Episodic Other and unspecified benign neoplasm (3 sources) Adenomatous polyp of colon ; Translations: [Benign neoplasm of colon, unspecified] 02-10-2023 Episodic Other and unspecified benign neoplasm (11 sources) Papilloma; Translations: [Benign neoplasm, unspecified site] Onset: 11-08-2022 11-08-2022 Episodic Other and unspecified benign neoplasm (2 sources) Benign neoplasm of colon, unspecified; Translations: [Benign neoplasm of colon, unspecified] Onset: 07-26-2022 Episodic Other and unspecified benign neoplasm (2 sources) Benign neoplasm, unspecified site; Translations: [Benign neoplasm, unspecified site] Onset: 11-08-2022 Episodic Other and unspecified benign neoplasm (2 sources) Benign neoplasm of pituitary gland; Translations: [Benign neoplasm of pituitary gland (Multi)] Onset: 11-06-2022 Episodic Other connective tissue disease (18 sources) Bilateral pes anserinus bursitis; Translations: [Other bursitis of knee, right knee] Onset: 08-14-2016 Resolved: 02-10-2023 08-14-2016 Episodic Other connective tissue disease (18 sources) Medial epicondylitis; Translations: [Medial epicondylitis, unspecified elbow] Onset: 08-14-2016 Resolved: 02-10-2023 08-14-2016 Episodic Other ear and sense organ disorders (14 sources) Impacted cerumen; Translations: [Impacted cerumen] Resolved: 09-14-2021 Episodic Other gastrointestinal disorders (2 sources) Diarrhea, unspecified; Translations: [Diarrhea, unspecified] Onset: 05-20-2022 Episodic Other non-traumatic joint disorders (20 sources) Multiple joint pain; Translations: [Pain in joint, multiple sites] Onset: 08-14-2016 08-14-2016 Episodic Other non-traumatic joint disorders (8 sources) Pain in right knee; Translations: [Pain in joint, lower leg] Onset: 08-14-2016 08-14-2016 Episodic Other non-traumatic joint disorders (8 sources) Hip pain; Translations: [Pain in right hip] Onset: 08-14-2016 08-14-2016 Episodic Other non-traumatic joint disorders (2 sources) Pain in unspecified joint; Translations: [Pain in unspecified joint] Onset: 07-26-2022 Episodic Other screening for suspected conditions (not mental disorders or infectious disease) (20 sources) Decreased testosterone level ; Translations: [Other nonspecific findings on examination of blood] Onset: 07-26-2022 10-07-2022 Episodic Residual codes; unclassified (8 sources) Active advance directive (copy within chart) ; Translations: [Other specified health status] Onset: 06-01-2014 06-01-2014 Episodic Skin and subcutaneous tissue infections (9 sources) Abscess; Translations: [Cutaneous abscess, unspecified] Onset: 06-29-2024 06-22-2024 Episodic Spondylosis; intervertebral disc disorders; other back problems (20 sources) Thoracic back pain; Translations: [Pain in thoracic spine] Onset: 07-26-2022 Resolved: 09-14-2021 10-07-2022 Episodic Syncope (4 sources) Syncope; Translations: [Syncope and collapse] Onset: 05-20-2022 05-19-2022 Episodic Unclassified (14 sources) History of clinical finding in subject; Translations: [History of cough] Resolved: 08-31-2020 Unclassified (11 sources) Onset: 10-07-2022 Resolved: 11-19-2024 10-07-2022 Results Test Name Value Interpretation Reference Range Facility Comprehensive metabolic 2000 panelon 12-03-2024 Albumin [Mass/Vol] 4.0 g/dL Normal 3.9-4.9 [facility] Comment on above: Order Comment: Speci men Type: BLOOD SPECIMEN Ordering Facility: [facility] Address: [address] [place] [address] Performed By: #### 2 4323-8 #### [facility] CLIA [id number] [address] ALP [Catalytic activity/Vol] 78 U/L Normal 38-113 [facility] Comment on above: Order Comment: Speci men Type: BLOOD SPECIMEN Ordering Facility: [facility] Address: [address] [place] [address] Performed By: #### 2 4323-8 #### [facility] CLIA [id number] [address] STATES OF [facility] ALT [Catalytic activity/Vol] 23 U/L Normal 10-54 [facility] Comment on above: Order Comment: Speci men Type: BLOOD SPECIMEN Ordering Facility: [facility] Address: [address] [place] [address] Performed By: #### 2 432-8 #### [facility] CLIA [id number] [address] Anion gap [Moles/Vol] 10 mmol/L Normal 8-15 [facility] Comment on above: Order Comment: Speci men Type: BLOOD SPECIMEN Ordering Facility: [facility] Address: [address] [place] [address] Performed By: #### 2 432-8 #### [facility] CLIA [id number] [address] AST [Catalytic activity/Vol] 25 U/L Normal 14-40 [facility] Comment on above: Order Comment: Speci men Type: BLOOD SPECIMEN Ordering Facility: [facility] Address: [address] [place] [address] Performed By: #### 2 4323-8 #### [facility] CLIA [id number] [address] Bilirubin [Mass/Vol] 0.3 mg/dL Normal 0.2-1.3 [facility] Comment on above: Order Comment: Speci men Type: BLOOD SPECIMEN Ordering Facility: [facility] Address: [address] [place] [address] Performed By: #### 2 4323-8 #### [facility] CLIA [id number] [address] [place] [address] [place] Calcium [Mass/Vol] 9.9 mg/dL Normal 8.5-10.2 [facility] Comment on above: Order Comment: Speci men Type: BLOOD SPECIMEN Ordering Facility: [facility] Address: [address] [place] [address] Performed By: #### 2 4323-8 #### [facility] CLIA [id number] [address] [place] [address] [place] Chloride [Moles/Vol] 104 mmol/L Normal 98-107 [facility] Comment on above: Order Comment: Speci men Type: BLOOD SPECIMEN Ordering Facility: [facility] Address: [address] [place] [id number] Performed By: #### 2 4323-8 #### [facility] CLIA [id number] [address] [place] CO2 [Moles/Vol] 27 mmol/L Normal 22-30 [facility] Comment on above: Order Comment: Speci men Type: BLOOD SPECIMEN Ordering Facility: [facility] Address: [address] [place] [address] Performed By: #### 2 4323-8 #### [facility] CLIA [id number] [address] [place] Creatinine [Mass/Vol] 1.27 mg/dL High 0.73-1.22 [facility] Comment on above: Order Comment: Speci men Type: BLOOD SPECIMEN Ordering Facility: [facility] Address: [address] [place] [address] Performed By: #### 2 4323-8 #### [facility] CLIA [id number] [address] Creatinine and Glomerular filtration rate.predicted panel (S/P/Bld) 64 mL/min/1.73m??? Normal >=60 [facility] Comment on above: Order Comment: Speci men Type: BLOOD SPECIMEN Ordering Facility: [facility] Address: [address] [place] [address] Result Comment: Darleen mated Glomerular Filtration Rate (eGFR) is calculated using the 2020 CKD-EPI creatinine equation. This equation utilizes serum creatinine, sex, and age as parameters. The creatinine assay has traceable calibration to isotope dilution-mass spectrometry. Refer to KDIGO guidelines for clinical interpretation. In patients with unstable renal function, e.g. those with acute kidney injury, the eGFR may not accurately reflect actual GFR. Performed By: #### 2 4323-8 #### [facility] CLIA [id number] [address] [place] [address] [place] Glucose [Mass/Vol] 108 mg/dL High 74-99 [facility] Comment on above: Order Comment: Mau thompson Type: BLOOD SPECIMEN Ordering Facility: [facility] Address: [address] [place] [address] Result Comment: The [place] Diabetes Association (ADA) provides guidance for cutoff values for fasting glucose and random glucose. The ADA defines fasting as no caloric intake for at least 8 hours. Fasting plasma glucose results between 100 to 125 mg/dL indicate increased risk for diabetes (prediabetes). Fasting plasma glucose results greater than or equal to 126 mg/dL meet the criteria for diagnosis of diabetes. In the absence of unequivocal hyperglycemia, results should be confirmed by repeat testing. In a patient with classic symptoms of hyperglycemia or hyperglycemic crisis, random plasma glucose results greater than or equal to 200 mg/dL meet the criteria for diagnosis of diabetes. Reference: Standards of Medical Care in Diabetes 2016, [place] [employer] Association. Diabetes Care. 2016.39(Suppl 1). Performed By: #### 2 4323-8 #### [facility] CLIA [id number] [address] STATES [place] [facility] Potassium [Moles/Vol] 4.4 mmol/L Normal 3.7-5.1 [facility] Comment on above: Order Comment: Mau thompson Type: BLOOD SPECIMEN Ordering Facility: [facility] Address: [address] [place] [address] Performed By: #### 2 4323-8 #### [facility] CLIA [id number] [address] [place] Protein [Mass/Vol] 7.3 g/dL Normal 6.3-8.0 [facility] Comment on above: Order Comment: Speci men Type: BLOOD SPECIMEN Ordering Facility: [facility] Address: [address] [place] [address] Performed By: #### 2 4323-8 #### [facility] CLIA [id number] [address] [place] Sodium [Moles/Vol] 141 mmol/L Normal 136-144 [facility] Comment on above: Order Comment: Speci men Type: BLOOD SPECIMEN Ordering Facility: [facility] Address: [address] [place] [address] Performed By: #### 2 4323-8 #### [facility] CLIA [id number] [address] [place] [address] [place] Urea nitrogen [Mass/Vol] 10 mg/dL Normal 9-24 [facility] Comment on above: Order Comment: Speci men Type: BLOOD SPECIMEN Ordering Facility: [facility] Address: [address] [place] [address] Performed By: #### 2 4323-8 #### [facility] CLIA [id number] [address] [place] [address] [place] FSH SerPl-aCncon 12-03-2024 Follitropin Qn 0.5 m[IU]/mL Low 1.5-12.4 [facility] Comment on above: Order Comment: Speci men Type: BLOOD SPECIMEN Ordering Facility: [facility] Address: [address] [place] [address] Performed By: #### 1 0501-5, 2842-3, 3053-6, 28534-3 #### [facility] CLIA [id number] [address] [place] [address] [place] INSULIN LIK GR FAC Ion 12-03 INSULIN LIK GR FAC 1 119 ng/mL Normal 49-214 [facility] Comment on above: Order Comment: Speci men Type: BLOOD SPECIMEN Ordering Facility: [facility] Address: [address] [place] [address] Performed By: #### I LGF1 #### [facility] CLIA [id number] [address] [place] [address] [place] LH SerPl-aCncon 12-03-2024 Lutropin Qn 0.5 m[IU]/mL Low 1.8-10.8 [facility] Comment on above: Order Comment: Speci men Type: BLOOD SPECIMEN Ordering Facility: [facility] Address: [address] [place] [id number] Performed By: #### 1 0501-5, 2842-3, 3053-6, 01579-6 #### [facility] CLIA [id number] [address] [place] [address] [place] Prolactin SerPl-mCncon 12-03 Prolactin [Mass/Vol] 2.6 ng/mL Low 4.1-25.1 [facility] Comment on above: Order Comment: Speci men Type: BLOOD SPECIMEN Ordering Facility: [facility] Address: [address] [place] [address] Result Comment: Prol actin test is performed using the [employer] Electrochemiluminescence Immunoassay method. Results obtained with different methods or kits cannot be used interchangeably. Performed By: #### 1 0501-5, 2842-3, 3053-6, 81121-5 #### [facility] CLIA [id number] [address] [place] [address] [place] T3 SerPl-mCncon 12-03-2024 T3 [Mass/Vol] 175 ng/dL High 79-165 [facility] Comment on above: Order Comment: Speci men Type: BLOOD SPECIMEN Ordering Facility: [facility] Address: [address] [place] [id number] Performed By: #### 1 0501-5, 2842-3, 3053-6, 36666-0 #### [facility] CLIA [id number] [address] [place] [address] [place] T4 Free SerPl-mCncon 025 Free T4 [Mass/Vol] 1.8 ng/dL High 0.9-1.7 [facility] Comment on above: Order Comment: Speci men Type: BLOOD SPECIMEN Ordering Facility: [facility] Address: [address] [place] [address] Performed By: #### 3 024-7 #### [facility] CLIA [id number] [address] [place] [address] [place] [address] [place] BASIC METABOLIC PANEL WITH A NION GAPon 11-14-2024 BUN/CREATININE RATIO SEE NOTE: Normal 12-05 [facility] Comment on above: Order Comment: FASTI NG:YES FASTING: YES Result Comment: Not Reported: BUN and Creatinine are within reference range. Performed By: #### 9 2498, 45131 #### [facility] [place] [address] Disaster Or Damage Control Specialist: Dre Sosa MD Calcium [Mass/Vol] 9.4 mg/dL Normal 8.6-10.3 [facility] Comment on above: Order Comment: FASTI NG:YES FASTING: YES Performed By: #### 9 249, 34894 #### [facility] [place] [address] Disaster Or Damage Control Specialist: Dre Sosa MD Chloride [Moles/Vol] 104 mmol/L Normal 98-110 [facility] Comment on above: Order Comment: FASTI NG:YES FASTING: YES Performed By: #### 9 2497, 98925 #### [facility] [place] [address] Disaster Or Damage Control Specialist: Dre Sosa MD CO2 [Moles/Vol] 29 mmol/L Normal 20-32 [facility] Comment on above: Order Comment: FASTI NG:YES FASTING: YES Performed By: #### 9 2497, 68669 #### [facility] [place] [address] Disaster Or Damage Control Specialist: Dre Sosa MD Creatinine [Mass/Vol] 1.16 mg/dL Normal 0.70-1.35 [facility] Comment on above: Order Comment: FASTI NG:YES FASTING: YES Performed By: #### 9 2497, 13802 #### [facility] [place] [address] Disaster Or Damage Control Specialist: Dre Sosa MD ELECTROLYTE BALANCE 7 mmol/L (calc) Normal 7-17 [facility] Comment on above: Order Comment: FASTI NG:YES FASTING: YES Performed By: #### 9 2497, 05188 #### [facility] [place] [address] Disaster Or Damage Control Specialist: Dre Sosa MD GFR/1.73 sq M.predicted among non-blacks MDRD (S/P/Bld) [Vol rate/Area] 71 mL/min/{1.73_m2} Normal > OR = 60 [facility] Comment on above: Order Comment: FASTI NG:YES FASTING: YES Performed By: #### 9 2497, 45583 #### [facility] [place] [address] Disaster Or Damage Control Specialist: Dre Sosa MD Glucose [Mass/Vol] 98 mg/dL Normal 65-99 [facility] Comment on above: Order Comment: FASTI NG:YES FASTING: YES Result Comment: Fasting reference interval Performed By: #### 9 8, 13993 #### [facility] [place] [address] Disaster Or Damage Control Specialist: Dre Sosa MD Potassium [Moles/Vol] 4.3 mmol/L Normal 3.5-5.3 [facility] Comment on above: Order Comment: FASTI NG:YES FASTING: YES Performed By: #### 9 2497, 00975 #### [facility] [place] [address] Disaster Or Damage Control Specialist: Dre Sosa MD Sodium [Moles/Vol] 140 mmol/L Normal 135-146 [facility] Comment on above: Order Comment: FASTI NG:YES FASTING: YES Performed By: #### 9 2497, 91974 #### [facility] [place] [address] Disaster Or Damage Control Specialist: Dre Sosa MD Urea nitrogen [Mass/Vol] 13 mg/dL Normal 7-25 [facility] Comment on above: Order Comment: FASTI NG:YES FASTING: YES Performed By: #### 9 3888, 16767 #### [facility] [address], [address] [place] [address] Disaster Or Damage Control Specialist: Dre Sosa MD HEMOGLOBIN A1c WITH eAGon eAG (mmol/L) 6.3 mmol/L Normal [facility] Comment on above: Performed By: #### 9 2498, 94293 #### [facility] [address], [address] [place] [address] Disaster Or Damage Control Specialist: Dre Sosa MD HbA1c (Bld) [Mass fraction] 5.6 % Normal <5.7 [facility] Comment on above: Result Comment: For the purpose of screening for the presence of diabetes: <5.7% Consistent with the absence of diabetes 5.7-6.4% Consistent with increased risk for diabetes (prediabetes) > or =6.5% Consistent with diabetes This assay result is consistent with a decreased risk of diabetes. Currently, no consensus exists regarding use of hemoglobin A1c for diagnosis of diabetes in children. According to [place] [employer] (ADA) guidelines, hemoglobin A1c <7.0% represents optimal control in non- diabetic patients. Different metrics may apply to specific patient populations. Standards of Medical Care in Diabetes(ADA). Performed By: #### 9 5978, 42127 #### [facility] of [address], [address] [place] [address] Disaster Or Damage Control Specialist: Dre Sosa MD Magnesium [Mass/Vol] 114 mg/dL Normal [facility] Comment on above: Performed By: #### 9 1098, 47980 #### [facility] of [address], [address] [place] [address] Disaster Or Damage Control Specialist: Dre Sosa MD Injection tendon or ligament : L long A1on 09-09-2024 Victoria Alexandre APRN -SPA TECHNICIAN 09/09/2024 5:02 PM Injection tendon or ligament: L long A1 for trigger finger on 09/09/2024 4:42 PM Indications: tendon swelling Details: 25 G needle, medial approach Medications: 10 mg triamcinolone acetonide 40 mg/mL; 0.25 mL lidocaine 10 mg/mL (1 %) Aspirate: 0 mL Consent was given by the patient. Immediately prior to procedure a time out was called to verify the correct patient, procedure, equipment, human resources support specialist and site/side marked as required. Patient was prepped and draped in the usual sterile fashion. [facility] Work Phone: [facility] Work Phone: Wound Cultureon 06-15-2024 WC Possible skin contamination, further Identification and sensitivity will be performed only by physician's request. Coag Negative Staph Amount Growth Rare Normal [facility] Comment on above: Performed By: #### M 100.2000, M100.3000 #### [facility] [address] [facility] [place], [address] Emergency Department Summary on 06-13-2024 Emergency Department Summary [facility] Medical Records Department [address] [place] [address] Emergency Department Summary 06/13/24 MR#: [id number] Acct: [id number] Name: TRAVIS BARNEY Rep #: [id number] : 1960 64 From: Rashel Méndez DO PCP: Dr. Althea Yang MD Status:DEP ER Location: ED HPI History of Present Illness Chief Complaint: Abscess Informant: patient Narrative Narrative: 64-year-old male presenting to the emergency room with chief complaint of abscess. Patient states that for about a month he has had some swelling in the right trapezius shoulder area. He made an appointment with dermatology. He has had a lipoma on left forearm and he felt it was similar. Few days before [place] he began to notice that it was turning red and more painful. This progressively gotten worse and is presenting here today. He notes an allergy to Bactrim does not recall what the reaction was. No reported fevers. He states he does not have a pituitary gland and takes steroid medications. PFSH PFSH Home Medications ???Medication ???Instructions ???Recorded ???Last Taken ???Type doxycycline monohydrate 100 mg 100 mg PO BID #14 CAPSULES 06/13/24 Unknown Rx capsule oxycodone-acetaminophen 5 mg-325 1 tab PO Q6H PRN PRN Pain 3 days 06/13/24 Unknown Rx mg tablet #12 TABLETS Allergy/AdvReac Type Severity Reaction Status Date / Time sulfamethoxazole (From Allergy Unknown NEEDS Verified 06/13/24 08:34 Bactrim) FOLLOW-UP trimethoprim (From Bactrim) Allergy Unknown NEEDS Verified 06/13/24 08:34 FOLLOW-UP Social History Smoking Status: Current every day smoker tobacco type: cigarettes ROS ROS ED Constitutional Constitutional ED: Denies chills, fever(s) or weight loss Eyes Eyes: Denies change in vision or diplopia ENT ENT ED: Denies ear pain, rhinorrhea or sore throat Cardiovascular Cardiovascular: Denies chest pain, orthopnea, palpitations or racing heartbeat Respiratory/Chest Respiratory/Chest: Denies cough, dyspnea or orthopnea Gastrointestinal Gastrointestinal: Denies abdominal pain, diarrhea, nausea or vomiting Genitourinary Genitourinary ED: Denies dysuria, hematuria or urinary frequency Musculoskeletal Musculoskeletal: Denies arthralgias or myalgias Integumentary Reports abscess; Denies rash Neurologic Neurologic: Denies headache(s) or weakness Psychiatric Psychiatric: Denies anxiety, depression, suicidal ideation or suicidal thoughts Endocrine Endocrinology: Denies polydipsia, polyphagia or polyuria Allergic/Immunologic Allergic/Immunologic ED: Denies mouth swelling, tongue swelling or urticaria EXAM Physical Exam Const Vital Signs: 06/13/24 08:32 Temperature 97.2 F L Temperature Source Temporal Pulse Rate 73 Respiratory Rate 16 Blood Pressure 119/80 Blood Pressure Mean 93 Pulse Ox 97 Oxygen Delivery Method Room Air Positive well nourished and well developed General Appearance ED: well developed HEENT Reports normocephalic, head/scalp atraumatic and moist mucous membranes Eyes PERRL and EOMs intact bilaterally Neck no lymphadenopathy, supple and no JVD Resp normal respiratory effort and clear to auscultation bilaterally Cardio regular rate, regular rhythm and no murmurs GI normal to inspection, nondistended, normoactive bowel sounds and non-tender Palpation: soft Back/Spine no CVA tenderness and normal ROM Extremity normal to inspection General Extremety ED: Negative for edema General Extremity: Negative for edema Neuro oriented x3 and CN's II-XII intact bilaterally Sensorium / Orientation: alert Motor Exam: strength 5/5 throughout Psych mental status grossly normal Mood Affect: Negative for depressed or tearful Skin no wounds Skin Narrative: There is a 3 cm rounded apparent abscess in the right trapezius midclavicular line region. There is some mild surrounding erythema. Tender to palpation. MDM MDM MDM Narrative Medical decision making narrative: Differential diagnosis includes but not limited to abscess infected sebaceous cyst ingrown hair cellulitis Patient provided informed consent for incision and drainage. Wound was washed with Betadine and allowed to dry. 1% lidocaine was used to anesthetize the area. A cruciate incision was made with an 11 blade. I was able to dissect down to the cyst but the cyst appears to have already ruptured. Thick fluid consistent with a sebaceous cyst was removed. Pieces of the cell wall were removed. Irrigation was performed and packing with iodoform gauze was placed. Patient was placed on doxycycline. Wound culture was obtained. He was advised this will most likely recur and to follow- up with dermatology. As far as stress dose steroid dosing I advised him to call his end (more content not included)... Normal [facility] Gram Stainon 06-13-2024 GS Gram Stain 2+ White Blood Cells 3+ Gram positive cocci No Epithelial cells Normal [facility] Comment on above: Performed By: #### M 100.2000, M100.3000 #### [facility] [address] [place], [address] Comprehensive metabolic 2000 panelon 02-11-2024 Albumin BCP dye [Mass/Vol] 4.0 g/dL Normal 3.4-5.0 [facility] Comment on above: Performed By: #### 2 4323-8 #### SAURABH BRAVO ([id number]) [facility] ([facility]) [address] [place] [address] 47333 ALP [Catalytic activity/Vol] 76 U/L Normal 33-136 [facility] Comment on above: Performed By: #### 2 4323-8 #### SAURABH BRAVO ([id number]) [facility] ([facility]) [address] [place] [address] 83978 ALT With P-5'-P [Catalytic activity/Vol] 25 U/L Normal 10-52 [facility] Comment on above: Result Comment: Geraldine ents treated with Sulfasalazine may generate falsely decreased results for ALT. Performed By: #### 2 4323-8 #### SAURABH BRAVO ([id number]) [facility] ([facility]) [address] [place] [address] Anion gap [Moles/Vol] 10 mmol/L Normal 10-20 [facility] Comment on above: Performed By: #### 2 4322-8 #### SAURABH BRAVO ([id number]) [facility] ([facility]) [facility] [place] [address] AST With P-5'-P [Catalytic activity/Vol] 22 U/L Normal 9-39 [facility] Comment on above: Performed By: #### 2 4322-8 #### SAURABH BRAVO ([id number]) [facility] ([facility]) [address] [place] [address] 85765 Bilirubin [Mass/Vol] 0.6 mg/dL Normal 0.0-1.2 [facility] Comment on above: Performed By: #### 2 4322-8 #### SAURABH BRAVO ([id number]) [facility] ([facility]) [address] [place] [address] 06088 Calcium [Mass/Vol] 9.2 mg/dL Normal 8.6-10.3 [facility] Comment on above: Performed By: #### 2 4322-8 #### SAURABH BRAVO ([id number]) [facility] ([facility]) [address] [place] [address] 99615 Chloride [Moles/Vol] 107 mmol/L Normal 98-107 [facility] Comment on above: Performed By: #### 2 3-8 #### SAURABH BRAVO ([id number]) [facility] ([facility]) [address] [place] [address] 27084 CO2 [Moles/Vol] 28 mmol/L Normal 21-32 [facility] Comment on above: Performed By: #### 2 4323-8 #### SAURABH BRAVO ([id number]) [facility] ([facility]) [address] [place] [address] 68267 Creatinine [Mass/Vol] 1.22 mg/dL Normal 0.50-1.30 [facility] Comment on above: Performed By: #### 2 4323-8 #### SAURABH BRAVO ([id number]) [facility] ([facility]) [address] [place] [address] 04225 Glomerular filtration rate/1.73 sq M.predicted 67 mL/min/1.73m*2 Normal >60 [facility] Comment on above: Result Comment: Calc ulations of estimated GFR are performed using the 2020 CKD-EPI Study Refit equation without the race variable for the IDMS-Traceable creatinine methods. https://jasn.asnjournals.org/content/early//ASN.3691550144 Performed By: #### 2 432-8 #### SAURABH BRAVO ([id number]) [facility] ([facility]) [address] [place] [address] 60795 Glucose [Mass/Vol] 80 mg/dL Normal 74-99 [facility] Comment on above: Performed By: #### 2 4322-8 #### SAURABH BRAVO ([id number]) [facility] ([facility]) [address] [place] [address] 82165 Potassium [Moles/Vol] 3.8 mmol/L Normal 3.5-5.3 [facility] Comment on above: Performed By: #### 2 4322-8 #### SAURABH BRAVO ([id number]) [facility] ([facility]) [address] [place] [address] 47519 Protein [Mass/Vol] 6.2 g/dL Low 6.4-8.2 [facility] Comment on above: Performed By: #### 2 4322-8 #### SAURABH BRAVO ([id number]) [facility] ([facility]) [address] [place] [address] 76169 Sodium [Moles/Vol] 141 mmol/L Normal 136-145 [facility] Comment on above: Performed By: #### 2 4322-8 #### SAURABH BRAVO ([id number]) [facility] ([facility]) [address] [place] [address] Urea nitrogen [Mass/Vol] 18 mg/dL Normal 6-23 [facility] Comment on above: Performed By: #### 2 4323-8 #### SAURABH BRAVO ([id number]) [facility] ([facility]) [address] [place] [address] HbA1c (Bld) [Mass fraction]o n 02-11-2024 Average glucose Estimated from glycated hemoglobin (Bld) [Mass/Vol] 100 mg/dL Normal Not Established [facility] Comment on above: Order Comment: Diagn osis of Diabetes-Adults Non-Diabetic: < or = 5.6% Increased risk for developing diabetes: 5.7-6.4% Diagnostic of diabetes: > or = 6.5% Performed By: #### 4 548-4 #### KARTHIK Almanza ([id number]) [facility] ([facility]) [id number] [place], [place] [address] Hemoglobin A1c/Hemoglobin.to virgilio 02-11-2024 HbA1c (Bld) [Mass fraction] 5.1 % Normal see below [facility] Comment on above: Order Comment: Diagn osis of Diabetes-Adults Non-Diabetic: < or = 5.6% Increased risk for developing diabetes: 5.7-6.4% Diagnostic of diabetes: > or = 6.5% Performed By: #### 4 548-4 #### KARTHIK Almanza ([id number]) [facility] ([facility]) [id number] [place] [address] 06964 Lipid 1996 panelon 4 Cholesterol [Mass/Vol] 103 mg/dL Normal 0-199 [facility] Comment on above: Result Comment: Age Desirable Borderline High High 0-19 Y 0 - 169 170 - 199 >/= 200 20-24 Y 0 - 189 190 - 224 >/= 225 >24 Y 0 - 199 200 - 239 >/= 240 All ranges are based on fasting samples. Specific therapeutic targets will vary based on patient-specific cardiac risk. Pediatric guidelines reference:Pediatrics 2011, 128(S5).Adult guidelines reference: NCEP ATPIII Guidelines,GLORY 2001, 258:2486-97 Venipuncture immediately after or during the administration of Metamizole may lead to falsely low results. Testing should be performed immediately prior to Metamizole dosing. Performed By: #### 2 4331-1 #### SAURABH BRAVO ([id number]) [facility] ([facility]) [address] [place] [address] 01891 Cholesterol in HDL [Mass/Vol] 31.0 mg/dL Normal [facility] Comment on above: Result Comment: Age Very Low Low Normal High 0-19 Y < 35 < 40 40-45 ---- 20-24 Y ---- < 40 >45 ---- >24 Y ---- < 40 40-60 >60 Performed By: #### 2 4331-1 #### SAURABH BRAVO ([id number]) [facility] ([facility]) [address] [place] [address] 67501 Cholesterol in LDL [Mass/Vol] 45 mg/dL Normal <=99 [facility] Comment on above: Result Comment: Near Borderline AGE Desirable Optimal High High Very High 0-19 Y 0 - 109 --- 110-129 >/= 130 ---- 20-24 Y 0 - 119 --- 120-159 >/= 160 ---- >24 Y 0 - 99 100-129 130-159 160-189 >/=190 Performed By: #### 2 4331-1 #### SAURABH BRAVO ([id number]) [facility] ([facility]) [address] [place] [address] 06497 Cholesterol in VLDL [Mass/Vol] 27 mg/dL Normal 0-40 [facility] Comment on above: Performed By: #### 2 4331-1 #### SAURABH BRAVO ([id number]) [facility] ([facility]) [address] [place] [address] 25746 CHOLESTEROL/HDL RATIO 3.3 Normal [facility] Comment on above: Result Comment: Ref Values Desirable < 3.4 High Risk > 5.0 Performed By: #### 2 4331-1 #### SAURABH BRAVO ([id number]) [facility] ([facility]) [address] [place] [address] 90581 NON HDL CHOLESTEROL 72 mg/dL Normal 0-149 [facility] Comment on above: Result Comment: Age Desirable Borderline High High Very High 0-19 Y 0 - 119 120 - 144 >/= 145 >/= 160 20-24 Y 0 - 149 150 - 189 >/= 190 ---- >24 Y 30 mg/dL above LDL Cholesterol goal Performed By: #### 2 4331-1 #### SAURABH BRAVO ([id number]) [facility] ([facility]) [address] [place] [address] 35540 Triglyceride [Mass/Vol] 137 mg/dL Normal 0-149 [facility] Comment on above: Result Comment: Age Desirable Borderline High High Very High 0 D-90 D 19 - 174 ---- ---- ---- 91 D- 9 Y 0 - 74 75 - 99 >/= 100 ---- 10-19 Y 0 - 89 90 - 129 >/= 130 ---- 20-24 Y 0 - 114 115 - 149 >/= 150 ---- >24 Y 0 - 149 150 - 199 200- 499 >/= 500 Venipuncture immediately after or during the administration of Metamizole may lead to falsely low results. Testing should be performed immediately prior to Metamizole dosing. Performed By: #### 2 4331-1 #### SAURABH BRAVO ([id number]) [facility] ([facility]) [address] [place], [place] [address] Prostate specific Agon 02-10 Prostate specific Ag [Mass/Vol] 0.86 ng/mL Normal <=4.00 [facility] Comment on above: Order Comment: The DA requires that the method used for PSA assay be reported to the physician. Values obtained with different assay methods must not be used interchangeably. This test was performed at [facility] using the [employer] PSA assay is a two-site immunoenzymatic sandwich assay. The assay is approved for measurement of prostate-specific antigen (PSA)in serum and may be used in conjunction with a digital rectal examination in men 50 years and older as an aid in detection of prostate cancer. 4-Xumhc-fqffrbgqk inhibitors (e.g. Proscar, Finasteride, Avodart, Dutasteride and Veena) for the treatment of BPH have been shown to lower PSA levels by an average of 50% after 6 months of treatment. Performed By: #### 2 857-1 #### WILEY LAWRENCE ([id number]) [facility] ([facility]) [address] [place] [address] COMPREHENSIVE METABOLIC PANE [facility] 08-22-2023 Albumin [Mass/Vol] 4.5 g/dL 3.5 - 5.0 g/dL [facility] ALP [Catalytic activity/Vol] 80 U/L 32 - 126 U/L [facility] ALT [Catalytic activity/Vol] 25 U/L 10 - 52 U/L [facility] Anion gap [Moles/Vol] 12 mmol/L 7 - 17 mmol/L [facility] AST [Catalytic activity/Vol] 21 U/L 10 - 39 U/L [facility] Bilirubin [Mass/Vol] 0.6 mg/dL NINF - 1.5 mg/dL [facility] Calcium [Mass/Vol] 10.0 mg/dL 8.6 - 10.5 mg/dL [facility] Chloride [Moles/Vol] 104 mmol/L 98 - 108 mmol/L [facility] CO2 [Moles/Vol] 28 mmol/L 21 - 31 mmol/L [facility] Creatinine [Mass/Vol] 1.16 mg/dL 0.70 - 1.30 mg/dL [facility] eGFR, CKD-EPI, Male 72 - PINF [facility] Comment on above: Reported eGFR is bas ed on the CKD-EPI 2020 equation using creatinine, age, and sex. Glucose [Mass/Vol] 99 mg/dL 70 - 99 mg/dL [facility] Osmolality Calc [Osmolality] 295 [facility] Potassium [Moles/Vol] 4.3 mmol/L 3.5 - 5.0 mmol/L [facility] Protein [Mass/Vol] 7.4 g/dL 6.4 - 8.3 g/dL [facility] Sodium [Moles/Vol] 140 mmol/L 135 - 145 mmol/L [facility] Urea nitrogen [Mass/Vol] 17 mg/dL 7 - 25 mg/dL [facility] Urea nitrogen/Creatini ne [Mass ratio] 15 mg/mg [facility] HEMOGLOBIN A1Con 08-22-2023 Average glucose Estimated from glycated hemoglobin (Bld) [Mass/Vol] 117 mg/dL [facility] HbA1c (Bld) [Mass fraction] 5.7 % High 4.7 - 5.6 % [facility] Interpretation and review of laboratory results Abnormal [facility] No Panel Informationon 08-21 Interpretation and review of laboratory results Normal [facility] T3 TOTAL (TRIIODOTHYRONINE)o n 08-22-2023 T3 [Mass/Vol] 1.19 ng/mL 0.60 - 1.81 ng/mL [facility] T4 FREEon 08-22-2023 Free T4 [Mass/Vol] 1.47 ng/dL 0.89 - 1.76 ng/dL [facility] Interpretation and review of laboratory results Normal [facility] TESTOSTERONEon 08-22-2023 Testosterone [Mass/Vol] 394 ng/dL 240 - 950 ng/dL [facility] VITAMIN D (25-HYDROXY,TOTAL) on 08-22-2023 Interpretation and review of laboratory results Normal [facility] Vitamin D+Metabolites [Mass/Vol] 71.0 ng/mL 30.0 - 100.0 ng/mL [facility] Comment on above: <10 Deficiency 10-29 Insufficiency 30-100 Optimal Level >100 Possible Toxicity Vitamin D values hav e been shown to be falsely decreased in lipemic samples and should be interpreted with caution. [facility] Comprehensive metabolic 2000 panelon 08-11-2023 Albumin BCP dye [Mass/Vol] 4.3 g/dL Normal 3.4-5.0 [facility] Comment on above: Performed By: #### 2 4323-8 #### WILEY LAWRENCE ([id number]) [facility] ([facility]) [address] [place] [address] ALP [Catalytic activity/Vol] 86 U/L Normal 33-136 [facility] Comment on above: Performed By: #### 2 432-8 #### SAURABH BRAVO ([id number]) [facility] ([facility]) [address] [place] [address] ALT With P-5'-P [Catalytic activity/Vol] 35 U/L Normal 10-52 [facility] Comment on above: Result Comment: Geraldine ents treated with Sulfasalazine may generate falsely decreased results for ALT. Performed By: #### 2 4322-8 #### SAURABH BRAVO ([id number]) [facility] ([facility]) [address] [place] [address] 69556 Anion gap [Moles/Vol] 10 mmol/L Normal 10-20 [facility] Comment on above: Performed By: #### 2 4322-8 #### SAURABH BRAVO ([id number]) [facility] ([facility]) [address] [place] [address] 01729 AST With P-5'-P [Catalytic activity/Vol] 24 U/L Normal 9-39 [facility] Comment on above: Performed By: #### 2 4322-8 #### SAURABH BRAVO ([id number]) [facility] ([facility]) [address] [place] [address] 78069 Bilirubin [Mass/Vol] 0.6 mg/dL Normal 0.0-1.2 [facility] Comment on above: Performed By: #### 2 3-8 #### SAURABH BRAVO ([id number]) [facility] ([facility]) [address] [place] [address] 62915 Calcium [Mass/Vol] 9.6 mg/dL Normal 8.6-10.3 [facility] Comment on above: Performed By: #### 2 432-8 #### SAURABH BRAVO ([id number]) [facility] ([facility]) [address] [place] [address] Chloride [Moles/Vol] 105 mmol/L Normal 98-107 [facility] Comment on above: Performed By: #### 2 4323-8 #### SAURABH BRAVO ([id number]) [facility] ([facility]) [address] [place] [address] 71788 CO2 [Moles/Vol] 29 mmol/L Normal 21-32 [facility] Comment on above: Performed By: #### 2 432-8 #### SAURABH BRAVO ([id number]) [facility] ([facility]) [address] [place] [address] 49521 Creatinine [Mass/Vol] 1.14 mg/dL Normal 0.50-1.30 [facility] Comment on above: Performed By: #### 2 3-8 #### SAURABH BRAVO ([id number]) [facility] ([facility]) [address] [place] [address] 07660 Glomerular filtration rate/1.73 sq M.predicted 73 mL/min/1.73m*2 Normal >60 [facility] Comment on above: Result Comment: Calc ulations of estimated GFR are performed using the 2020 CKD-EPI Study Refit equation without the race variable for the IDMS-Traceable creatinine methods. https://jasn.asnjournals.org/content/early/ASN.2672674033 Performed By: #### 2 432-8 #### SAURABH BRAVO ([id number]) [facility] ([facility]) [address] [place] [address] 85280 Glucose [Mass/Vol] 99 mg/dL Normal 74-99 [facility] Comment on above: Performed By: #### 2 432-8 #### SAURABH BRAVO ([id number]) [facility] ([facility]) [address] [place] [address] 42812 Potassium [Moles/Vol] 4.3 mmol/L Normal 3.5-5.3 [facility] Comment on above: Performed By: #### 2 432-8 #### SAURABH BRAVO ([id number]) [facility] ([facility]) [address] [place] [address] 85787 Protein [Mass/Vol] 6.7 g/dL Normal 6.4-8.2 [facility] Comment on above: Performed By: #### 2 4323-8 #### SAURABH BRAVO ([id number]) [facility] ([facility]) [address] [place] [address] 55559 Sodium [Moles/Vol] 140 mmol/L Normal 136-145 [facility] Comment on above: Performed By: #### 2 4323-8 #### SAURABH BRAVO ([id number]) [facility] ([facility]) [address] [place] [address] 03144 Urea nitrogen [Mass/Vol] 16 mg/dL Normal 6-23 [facility] Comment on above: Performed By: #### 2 4323-8 #### SAURABH BRAVO ([id number]) [facility] ([facility]) [address] [place] [address] 32410 HbA1c (Bld) [Mass fraction]o n 08-11-2023 Average glucose Estimated from glycated hemoglobin (Bld) [Mass/Vol] 123 mg/dL Normal Not Established [facility] Comment on above: Order Comment: Diagn osis of Diabetes-Adults Non-Diabetic: < or = 5.6% Increased risk for developing diabetes: 5.7-6.4% Diagnostic of diabetes: > or = 6.5% Monitoring of Diabetes Age (y)....................... Therapeutic Goal (%) Adults: >18.........................<7.0 Pediatrics: 13-18...................<7.5 Pediatrics: 7-12....................<8.0 Pediatrics: 0-6..................... 7.5-8.5 [place] [employer]. Diabetes Care 33(S1), Jun 2009 Performed By: #### 4 548-4 #### SAURABH BRAVO ([id number]) [facility] ([facility]) [address] [place] [address] 37752 Hemoglobin A1c/Hemoglobin.dano poole 08-11-2023 HbA1c (Bld) [Mass fraction] 5.9 % High see below [facility] Comment on above: Order Comment: Diagn osis of Diabetes-Adults Non-Diabetic: < or = 5.6% Increased risk for developing diabetes: 5.7-6.4% Diagnostic of diabetes: > or = 6.5% Monitoring of Diabetes Age (y)....................... Therapeutic Goal (%) Adults: >18.........................<7.0 Pediatrics: 13-18...................<7.5 Pediatrics: 7-12....................<8.0 Pediatrics: 0-6..................... 7.5-8.5 [place] [employer]. Diabetes Care 33(S1), Jun 2009 Performed By: #### 4 548-4 #### WILEY LAWRENCE ([id number]) [facility] ([facility]) [address] [place] [address] ECG 12 leadOrdered By: Nelson Limon on 06-25-2023 Atrial Rate 87 BPM [facility] Work Phone: P [place] 3 degrees [facility] Work Phone: [phone] P Offset 168 ms [facility] Work Phone: [phone] P Onset 112 ms [facility] Work Phone: FL Interval 208 ms [facility] Work Phone: Q Onset 216 ms [facility] Work Phone: QRS Count 14 beats [facility] Work Phone: QRS Duration 88 ms [facility] Work Phone: [phone] QT Interval 348 ms [facility] Work Phone: QTC Calculation(Bazet t) 418 ms [facility] Work Phone: QTC Fredericia 393 ms [facility] Work Phone: R [place] -1 degrees [facility] Work Phone: T [place] 9 degrees [facility] Work Phone: T Offset 390 ms [facility] Work Phone: Ventricular Rate 87 BPM [facility] Work Phone: [facility] Work Phone: ECG 12 leadon 06-25-2023 Normal sinus rhythm Normal ECG When compared with ECG of 23-JUN-2023 10:11, (unconfirmed) No significant change was found See ED provider note for full interpretation and clinical correlation Confirmed by Luly Limon ([id number]) on 06/25/2023 3:42:10 PM Luly Cox AP RN-SPA TECHNICIAN - 06/25/2023 Normal sinus rhythm Normal ECG When compared with ECG of 23-JUN-2023 10:11, (unconfirmed) No significant change was found See ED provider note for full interpretation and clinical correlation Confirmed by Luly Limon ([id number]) on 06/25/2023 3:42:10 PM [facility] Work Phone: CBC W Auto Differential pane l (Bld)on 06-23-2023 Basophils (Bld) [#/Vol] 0.04 10*3/uL [facility] Basophils/100 WBC (Bld) 0.5 % 0.0 - 2.0 % [facility] Eosinophils (Bld) [#/Vol] 0.03 10*3/uL [facility] Eosinophils/100 WBC (Bld) 0.4 % 0.0 - 6.0 % [facility] Erythrocyte distribution width (RBC) [Ratio] 12.8 % 11.5 - 14.5 % [facility] Hematocrit (Bld) [Volume fraction] 47.4 % 41.0 - 52.0 % [facility] Hemoglobin (Bld) [Mass/Vol] 16.0 g/dL 13.5 - 17.5 g/dL [facility] Immature granulocytes (Bld) [#/Vol] 0.01 10*3/uL [facility] Immature granulocytes/100 WBC (Bld) 0.1 % 0.0 - 0.9 % [facility] Comment on above: Immature Granulocyte Count (IG) includes promyelocytes, myelocytes and metamyelocytes but does not include bands. Percent differential counts (%) should be interpreted in the context of the absolute cell counts (cells/UL). Interpretation and review of laboratory results Abnormal [facility] Lymphocytes (Bld) [#/Vol] 1.85 10*3/uL [facility] Lymphocytes/100 WBC (Bld) 24.2 % 13.0 - 44.0 % [facility] MCH (RBC) [Entitic mass] 29.0 pg 26.0 - 34.0 pg [facility] MCHC (RBC) [Mass/Vol] 33.8 g/dL 32.0 - 36.0 g/dL [facility] MCV (RBC) [Entitic vol] 86 fL 80 - 100 fL [facility] Monocytes (Bld) [#/Vol] 0.89 10*3/uL [facility] Monocytes/100 WBC (Bld) 11.6 % 2.0 - 10.0 % [facility] Neutrophils (Bld) [#/Vol] 4.83 10*3/uL [facility] Comment on above: Percent differential counts (%) should be interpreted in the context of the absolute cell counts (cells/uL). Neutrophils/100 WBC (Bld) 63.2 % 40.0 - 80.0 % [facility] Nucleated RBC/100 WBC (Bld) [Ratio] 0.0 % [facility] Platelets (Bld) [#/Vol] 128 10*3/uL Low [facility] Comment on above: Platelet count verif ied by smear review. RBC (Bld) [#/Vol] 5.51 10*6/uL [facility] WBC (Bld) [#/Vol] 7.7 10*3/uL [facility] Basophils (Bld) [#/Vol] 0.04 x10*3/uL Normal 0.00-0.10 [facility] Comment on above: Performed By: #### 5 7021-8 #### SAURABH BRAVO ([id number]) [facility] ([facility]) [address] [place] [address] 35443 Basophils/100 WBC (Bld) 0.5 % Normal 0.0-2.0 [facility] Comment on above: Performed By: #### 5 7021-8 #### SAURABH BRAVO ([id number]) [facility] ([facility]) [address] [place] [address] 36690 Eosinophils (Bld) [#/Vol] 0.03 x10*3/uL Normal 0.00-0.70 [facility] Comment on above: Performed By: #### 5 7021-8 #### SAURABH BRAVO ([id number]) [facility] ([facility]) [address] [place] [address] 81696 Eosinophils/100 WBC (Bld) 0.4 % Normal 0.0-6.0 [facility] Comment on above: Performed By: #### 5 7021-8 #### SAURABH BRAVO ([id number]) [facility] ([facility]) [address] [place] [address] 23447 Erythrocyte distribution width (RBC) [Ratio] 12.8 % Normal 11.5-14.5 [facility] Comment on above: Performed By: #### 5 7021-8 #### SAURABH BRAVO ([id number]) [facility] ([facility]) [address] [place] [address] 03230 Hematocrit (Bld) [Volume fraction] 47.4 % Normal 41.0-52.0 [facility] Comment on above: Performed By: #### 5 7021-8 #### SAURABH BRAVO ([id number]) [facility] ([facility]) [address] [place] [address] 51246 Hemoglobin (Bld) [Mass/Vol] 16.0 g/dL Normal 13.5-17.5 [facility] Comment on above: Performed By: #### 5 7021-8 #### SAURABH BRAVO ([id number]) [facility] ([facility]) [address] [place] [address] 95664 Immature granulocytes (Bld) [#/Vol] 0.01 x10*3/uL Normal 0.00-0.70 [facility] Comment on above: Performed By: #### 5 7021-8 #### SAURABH BRAVO ([id number]) [facility] ([facility]) [address] [place] [address] 34313 Immature granulocytes/100 WBC (Bld) 0.1 % Normal 0.0-0.9 [facility] Comment on above: Result Comment: Mary Jane ture Granulocyte Count (IG) includes promyelocytes, myelocytes and metamyelocytes but does not include bands. Percent differential counts (%) should be interpreted in the context of the absolute cell counts (cells/UL). Performed By: #### 5 7021-8 #### SAURABH BRAVO ([id number]) [facility] ([facility]) [address] [place] [address] 41095 Lymphocytes (Bld) [#/Vol] 1.85 x10*3/uL Normal 1.20-4.80 [facility] Comment on above: Performed By: #### 5 7021-8 #### SAURABH BRAVO ([id number]) [facility] ([facility]) [address] [place] [address] 84259 Lymphocytes/100 WBC (Bld) 24.2 % Normal 13.0-44.0 [facility] Comment on above: Performed By: #### 5 7021-8 #### SAURABH BRAVO ([id number]) [facility] ([facility]) [address] [place] [address] 56978 MCH (RBC) [Entitic mass] 29.0 pg Normal 26.0-34.0 [facility] Comment on above: Performed By: #### 5 7021-8 #### SAURABH BRAVO ([id number]) [facility] ([facility]) [address] [place] [address] 81140 MCHC (RBC) [Mass/Vol] 33.8 g/dL Normal 32.0-36.0 [facility] Comment on above: Performed By: #### 5 7021-8 #### SAURABH BRAVO ([id number]) [facility] ([facility]) [address] [place] [address] 79447 MCV (RBC) [Entitic vol] 86 fL Normal 80-100 [facility] Comment on above: Performed By: #### 5 7021-8 #### SAURABH BRAVO ([id number]) [facility] ([facility]) [address] [place], [place] [id number] Monocytes (Bld) [#/Vol] 0.89 x10*3/uL Normal 0.10-1.00 [facility] Comment on above: Performed By: #### 5 7021-8 #### SAURABH BRAVO ([id number]) [facility] ([facility]) [address] [place] [address] 02971 Monocytes/100 WBC (Bld) 11.6 % Normal 2.0-10.0 [facility] Comment on above: Performed By: #### 5 7021-8 #### SAURABH BRAVO ([id number]) [facility] ([facility]) [address] [place] [address] 84635 Neutrophils (Bld) [#/Vol] 4.83 x10*3/uL Normal 1.20-7.70 [facility] Comment on above: Result Comment: Perc ent differential counts (%) should be interpreted in the context of the absolute cell counts (cells/uL). Performed By: #### 5 7021-8 #### SAURABH BRAVO ([id number]) [facility] ([facility]) [address] [place] [address] 60041 Neutrophils/100 WBC (Bld) 63.2 % Normal 40.0-80.0 [facility] Comment on above: Performed By: #### 5 7021-8 #### SAURABH BRAVO ([id number]) [facility] ([facility]) [address] [place] [address] 33272 Nucleated RBC/100 WBC (Bld) [Ratio] 0.0 /100 WBCs Normal 0.0-0.0 [facility] Comment on above: Performed By: #### 5 7021-8 #### SAURABH BRAVO ([id number]) [facility] ([facility]) [address] [place] [address] Platelets (Bld) [#/Vol] 128 x10*3/uL Low 150-450 [facility] Comment on above: Result Comment: Plat elet count verified by smear review. Performed By: #### 5 7021-8 #### SAURABH BRAVO ([id number]) [facility] ([facility]) [address] [place] [address] 87630 RBC (Bld) [#/Vol] 5.51 x10*6/uL Normal 4.50-5.90 [facility] Comment on above: Performed By: #### 5 7021-8 #### SAURABH BRAVO ([id number]) [facility] ([facility]) [address] [place], [place] [address] WBC (Bld) [#/Vol] 7.7 x10*3/uL Normal 4.4-11.3 [facility] Comment on above: Performed By: #### 5 7021-8 #### SAURABH BRAVO ([id number]) [facility] ([facility]) [address] [place] [address] CT ANGIO CHEST FOR PULMONARY EMBOLISMon 06-23-2023 CT ANGIO CHEST FOR PULMONARY EMBOLISM Interpreted By: Burt Mendez, STUDY: CT ANGIO CHEST FOR PULMONARY EMBOLISM; 06/23/2023 1:17 pm INDICATION: Signs/Symptoms:chest tightness, covid+, near-syncope. COMPARISON: None. ACCESSION NUMBER(S): [id number] ORDERING CLINICIAN: LULA ERNST TECHNIQUE: Helical data acquisition of the chest was obtained with 67 mL Omnipaque 350. Images were reformatted in axial, coronal, and sagittal planes.MIP reformatted images were also generated. FINDINGS: LUNGS and AIRWAYS: There is slight respiratory motion with scattered minor atelectasis, otherwise the lungs are clear. Central airways are patent. No bronchiectasis. No pleural effusion or pneumothorax. MEDIASTINUM and MAURICIO, LOWER NECK AND AXILLA: Calcified mediastinal lymph nodes related to granulomatous disease. Esophagus is not dilated. HEART and VESSELS: Mild cardiomegaly. No significant pericardial effusion. Slightly motion degraded images, no pulmonary embolus is identified. Severe coronary atherosclerosis. Thoracic aorta and great vessels are patent without aneurysm. UPPER ABDOMEN: Post cholecystectomy. Splenic granulomas. CHEST WALL and OSSEOUS STRUCTURES: No suspicious osseous lesions. Multilevel degenerative changes of the thoracic spine. IMPRESSION: No pulmonary embolism or active disease in the chest identified on slightly motion degraded exam. Signed by: Burt Mendez 06/23/2023 1:32 PM Dictation workstation: [id number] [facility] Comment on above: Order Comment: For t his exam patient needs IV [address] Chest W contrast IV and C T angiogram Pulmonary arteries for pulmonary embolus W contrast Neli 06-23-2023 No pulmonary embolis m or active disease in the chest identified on slightly motion degraded exam. Signed by: Burt Mendez 06/23/2023 1:32 PM Dictation workstation: [id number] [facility] Interpreted By: Burt Mancini, STUDY: CT ANGIO CHEST FOR PULMONARY EMBOLISM; 06/23/2023 1:17 pm INDICATION: Signs/Symptoms:chest tightness, covid+, near-syncope. COMPARISON: None. ACCESSION NUMBER(S): [id number] ORDERING CLINICIAN: LULA ERNST TECHNIQUE: Helical data acquisition of the chest was obtained with 67 mL Omnipaque 350. Images were reformatted in axial, coronal, and sagittal planes.MIP reformatted images were also generated. FINDINGS: LUNGS and AIRWAYS: There is slight respiratory motion with scattered minor atelectasis, otherwise the lungs are clear. Central airways are patent. No bronchiectasis. No pleural effusion or pneumothorax. MEDIASTINUM and MAURCIIO, LOWER NECK AND AXILLA: Calcified mediastinal lymph nodes related to granulomatous disease. Esophagus is not dilated. HEART and VESSELS: Mild cardiomegaly. No significant pericardial effusion. Slightly motion degraded images, no pulmonary embolus is identified. Severe coronary atherosclerosis. Thoracic aorta and great vessels are patent without aneurysm. UPPER ABDOMEN: Post cholecystectomy. Splenic granulomas. CHEST WALL and OSSEOUS STRUCTURES: No suspicious osseous lesions. Multilevel degenerative changes of the thoracic spine. [facility] Burt Mendez MD - 06/23/2023 Interpreted By: Burt Mendez, STUDY: CT ANGIO CHEST FOR PULMONARY EMBOLISM; 06/23/2023 1:17 pm INDICATION: Signs/Symptoms:chest tightness, covid+, near-syncope. COMPARISON: None. ACCESSION NUMBER(S): [id number] ORDERING CLINICIAN: LULA ERNST TECHNIQUE: Helical data acquisition of the chest was obtained with 67 mL Omnipaque 350. Images were reformatted in axial, coronal, and sagittal planes.MIP reformatted images were also generated. FINDINGS: LUNGS and AIRWAYS: There is slight respiratory motion with scattered minor atelectasis, otherwise the lungs are clear. Central airways are patent. No bronchiectasis. No pleural effusion or pneumothorax. MEDIASTINUM and MAURICIO, LOWER NECK AND AXILLA: Calcified mediastinal lymph nodes related to granulomatous disease. Esophagus is not dilated. HEART and VESSELS: Mild cardiomegaly. No significant pericardial effusion. Slightly motion degraded images, no pulmonary embolus is identified. Severe coronary atherosclerosis. Thoracic aorta and great vessels are patent without aneurysm. UPPER ABDOMEN: Post cholecystectomy. Splenic granulomas. CHEST WALL and OSSEOUS STRUCTURES: No suspicious osseous lesions. Multilevel degenerative changes of the thoracic spine. IMPRESSION: No pulmonary embolism or active disease in the chest identified on slightly motion degraded exam. Signed by: Burt Mendez 06/23/2023 1:32 PM Dictation workstation: [id number] [facility] Work Phone: [facility] Work Phone: CT HEAD WO IV CONTRASTon CT HEAD WO IV CONTRAST Interpreted By: Burt Mendez, STUDY: CT HEAD WO IV CONTRAST 06/23/2023 1:17 pm INDICATION: Signs/Symptoms:fall, hit head COMPARISON: 12/14/2013 ACCESSION NUMBER(S): [id number] ORDERING CLINICIAN: LULA ERNST TECHNIQUE: Contiguous axial CT images of the brain were obtained without IV contrast. FINDINGS: The ventricles, cisterns and sulci are prominent, consistent with moderate diffuse volume loss. Areas of white matter low attenuation are nonspecific but likely related to chronic microvascular disease. There is intracranial atherosclerosis. Castaneda-white differentiation is preserved. No acute intracranial hemorrhage or mass effect. No midline shift. Patent basal cisterns. No extraaxial fluid collections. The calvaria is intact. Pansinus mucosal thickening. The mastoid air cells appear clear. IMPRESSION: No acute intracranial pathology. Signed by: Burt Mendez 06/23/2023 1:29 PM Dictation workstation: [id number] [facility] CT Head WO contraston 2023 No acute intracrania l pathology. Signed by: Burt Mendez 06/23/2023 1:29 PM Dictation workstation: [id number] [facility] Interpreted By: Burt Mancini, STUDY: CT HEAD WO IV CONTRAST 06/23/2023 1:17 pm INDICATION: Signs/Symptoms:fall, hit head COMPARISON: 12/14/2013 ACCESSION NUMBER(S): [id number] ORDERING CLINICIAN: LULA ERNST TECHNIQUE: Contiguous axial CT images of the brain were obtained without IV contrast. FINDINGS: The ventricles, cisterns and sulci are prominent, consistent with moderate diffuse volume loss. Areas of white matter low attenuation are nonspecific but likely related to chronic microvascular disease. There is intracranial atherosclerosis. Castaneda-white differentiation is preserved. No acute intracranial hemorrhage or mass effect. No midline shift. Patent basal cisterns. No extraaxial fluid collections. The calvaria is intact. Pansinus mucosal thickening. The mastoid air cells appear clear. MMODAL Burt Mendez MD - 06/23/2023 Interpreted By: Burt Mendez, STUDY: CT HEAD WO IV CONTRAST 06/23/2023 1:17 pm INDICATION: Signs/Symptoms:fall, hit head COMPARISON: 12/14/2013 ACCESSION NUMBER(S): [id number] ORDERING CLINICIAN: LULA ERNST TECHNIQUE: Contiguous axial CT images of the brain were obtained without IV contrast. FINDINGS: The ventricles, cisterns and sulci are prominent, consistent with moderate diffuse volume loss. Areas of white matter low attenuation are nonspecific but likely related to chronic microvascular disease. There is intracranial atherosclerosis. Castaneda-white differentiation is preserved. No acute intracranial hemorrhage or mass effect. No midline shift. Patent basal cisterns. No extraaxial fluid collections. The calvaria is intact. Pansinus mucosal thickening. The mastoid air cells appear clear. IMPRESSION: No acute intracranial pathology. Signed by: Burt Mendez 06/23/2023 1:29 PM Dictation workstation: [id number] [facility] Work Phone: [facility] Work Phone: Comprehensive metabolic 2000 panelon 06-23-2023 Albumin BCP dye [Mass/Vol] 4.1 g/dL 3.4 - 5.0 g/dL [facility] ALP [Catalytic activity/Vol] 81 U/L 33 - 136 U/L [facility] ALT With P-5'-P [Catalytic activity/Vol] 30 U/L 10 - 52 U/L [facility] Comment on above: Patients treated wit h Sulfasalazine may generate falsely decreased results for ALT. Anion gap [Moles/Vol] 12 mmol/L 10 - 20 mmol/L [facility] AST With P-5'-P [Catalytic activity/Vol] 25 U/L 9 - 39 U/L [facility] Bilirubin [Mass/Vol] 0.6 mg/dL 0.0 - 1.2 mg/dL [facility] Calcium [Mass/Vol] 9.2 mg/dL 8.6 - 10.3 mg/dL [facility] Chloride [Moles/Vol] 97 mmol/L Low 98 - 107 mmol/L [facility] CO2 [Moles/Vol] 30 mmol/L 21 - 32 mmol/L [facility] Creatinine [Mass/Vol] 1.33 mg/dL High 0.50 - 1.30 mg/dL [facility] GFR/1.73 sq M.predicted among non-blacks MDRD (S/P/Bld) [Vol rate/Area] 61 mL/min/{1.73_m2} - PINF [facility] Comment on above: Calculations of darleen mated GFR are performed using the 2020 CKD-EPI Study Refit equation without the race variable for the IDMS-Traceable creatinine methods. https://jasn.asnjournals.org/content/early/ASN.0405295954 Glucose [Mass/Vol] 84 mg/dL 74 - 99 mg/dL [facility] Interpretation and review of laboratory results Abnormal [facility] Potassium [Moles/Vol] 3.5 mmol/L 3.5 - 5.3 mmol/L [facility] Protein [Mass/Vol] 7.2 g/dL 6.4 - 8.2 g/dL [facility] Sodium [Moles/Vol] 135 mmol/L Low 136 - 145 mmol/L [facility] Urea nitrogen [Mass/Vol] 19 mg/dL 6 - 23 mg/dL [facility] Albumin BCP dye [Mass/Vol] 4.1 g/dL Normal 3.4-5.0 [facility] Comment on above: Performed By: #### 2 4323-8 #### SAURABH BRAVO ([id number]) [facility] ([facility]) [address] [place] [address] ALP [Catalytic activity/Vol] 81 U/L Normal 33-136 [facility] Comment on above: Performed By: #### 2 4323-8 #### SAURABH BRAVO ([id number]) [facility] ([facility]) [facility] [place] [address] ALT With P-5'-P [Catalytic activity/Vol] 30 U/L Normal 10-52 [facility] Comment on above: Result Comment: Geraldine ents treated with Sulfasalazine may generate falsely decreased results for ALT. Performed By: #### 2 4323-8 #### SAURABH BRAVO ([id number]) [facility] ([facility]) [facility] [place] [address] Anion gap [Moles/Vol] 12 mmol/L Normal 10-20 [facility] Comment on above: Performed By: #### 2 4323-8 #### SAURABH BRAVO ([id number]) [facility] ([facility]) [address] [place] [address] 19563 AST With P-5'-P [Catalytic activity/Vol] 25 U/L Normal 9-39 [facility] Comment on above: Performed By: #### 2 4323-8 #### SAURABH BRAVO ([id number]) [facility] ([facility]) [facility] [place] [address] Bilirubin [Mass/Vol] 0.6 mg/dL Normal 0.0-1.2 [facility] Comment on above: Performed By: #### 2 4323-8 #### SAURABH BRAVO ([id number]) [facility] ([facility]) [address] [place] [address] 91230 Calcium [Mass/Vol] 9.2 mg/dL Normal 8.6-10.3 [facility] Comment on above: Performed By: #### 2 4323-8 #### SAURABH BRAVO ([id number]) [facility] ([facility]) [address] [place] [address] 39368 Chloride [Moles/Vol] 97 mmol/L Low 98-107 [facility] Comment on above: Performed By: #### 2 4323-8 #### SAURABH BRAVO ([id number]) [facility] ([facility]) [address] [place] [address] 88589 CO2 [Moles/Vol] 30 mmol/L Normal 21-32 [facility] Comment on above: Performed By: #### 2 4323-8 #### SAURABH BRAVO ([id number]) [facility] ([facility]) [facility] [place] [address] Creatinine [Mass/Vol] 1.33 mg/dL High 0.50-1.30 [facility] Comment on above: Performed By: #### 2 4323-8 #### SAURABH BRAVO ([id number]) [facility] ([facility]) [address] [place] [address] 49898 Glomerular filtration rate/1.73 sq M.predicted 61 mL/min/1.73m*2 Normal >60 [facility] Comment on above: Result Comment: Calc ulations of estimated GFR are performed using the 2020 CKD-EPI Study Refit equation without the race variable for the IDMS-Traceable creatinine methods. https://jasn.asnjournals.org/content/early//ASN.7260876455 Performed By: #### 2 4323-8 #### SAURABH BRAVO ([id number]) [facility] ([facility]) [address] [place] [address] 81208 Glucose [Mass/Vol] 84 mg/dL Normal 74-99 [facility] Comment on above: Performed By: #### 2 4323-8 #### SAURABH BRAVO ([id number]) [facility] ([facility]) [address] [place] [address] 79974 Potassium [Moles/Vol] 3.5 mmol/L Normal 3.5-5.3 [facility] Comment on above: Performed By: #### 2 4323-8 #### SAURABH BRAVO ([id number]) [facility] ([facility]) [address] [place] [address] 77724 Protein [Mass/Vol] 7.2 g/dL Normal 6.4-8.2 [facility] Comment on above: Performed By: #### 2 4323-8 #### SAURABH BRAVO ([id number]) [facility] ([facility]) [address] [place] [address] 81214 Sodium [Moles/Vol] 135 mmol/L Low 136-145 [facility] Comment on above: Performed By: #### 2 4323-8 #### SAURABH BRAVO ([id number]) [facility] ([facility]) [address] [place] [address] 26786 Urea nitrogen [Mass/Vol] 19 mg/dL Normal 6-23 [facility] Comment on above: Performed By: #### 2 4323-8 #### SAURABH BRAVO ([id number]) [facility] ([facility]) [address] [place] [address] 21612 ECG 12-LEADon 06-23-2023 ECG 12-LEAD Ventricular Rate 87 Atrial Rate 87 P-R Interval 208 QRS Duration 88 Q-T Interval 348 QTC Calculation(Bazett) 418 P [place] 3 R [place] -1 T [place] 9 QRS Count 14 Q Onset 216 P Onset 112 P Offset 168 T Offset 390 QTC Fredericia 393 Diagnosis Normal sinus rhythm Normal ECG When compared with ECG of 23-JUN-2023 10:11, (unconfirmed) No significant change was found See ED provider note for full interpretation and clinical correlation Confirmed by Luly Limon ([id number]) on 06/25/2023 3:42:10 PM Normal [facility] Magnesiumon 06-23-2023 Magnesium [Mass/Vol] 1.96 mg/dL 1.60 - 2.40 mg/dL [facility] Magnesium [Mass/Vol] 1.96 mg/dL Normal 1.60-2.40 [facility] Comment on above: Performed By: #### 1 9123-9 #### SAURABH BRAVO ([id number]) [facility] ([facility]) [facility] [place] [address] Magnesium [Mass/Vol]on 06-23 Interpretation and review of laboratory results Normal [facility] No Panel Informationon 06-23 Radiology Study observation (narrative) [facility] Work Phone: [facility] RBC shape Nom (Bld)on 2023 RBC morphology finding Nom (Bld) No significant RBC morphology present [facility] RBC morphology finding Nom (Bld) No significant RBC morphology present Normal [facility] Comment on above: Performed By: #### 1 [id number] #### SAURABH BRAVO ([id number]) [facility] ([facility]) [address] [place] [id number] Tropinin I.cardiac panel Hig h sensitivity methodon 06-23-2023 Interpretation and review of laboratory results Normal [facility] Less than 99th perce ntile of normal range cutoff- Female and children under 18 years old <14 ng/L; Male <21 ng/L: Negative Repeat testing should be performed if clinically indicated. Female and children under 18 years old 14-50 ng/L; Male 21-50 ng/L: Consistent with possible cardiac damage and possible increased clinical risk. Serial measurements may help to assess extent of myocardial damage. >50 ng/L: Consistent with cardiac damage, increased clinical risk and myocardial infarction. Serial measurements may help assess extent of myocardial damage. NOTE: Children less than 1 year old may have higher baseline troponin levels and results should be interpreted in conjunction with the overall clinical context. NOTE: Troponin I testing is performed using a different testing methodology at [facility] than at [facility]. Direct result comparisons should only be made within the same method. [facility] Interpretation and review of laboratory results Normal [facility] Less than 99th perce ntile of normal range cutoff- Female and children under 18 years old <14 ng/L; Male <21 ng/L: Negative Repeat testing should be performed if clinically indicated. Female and children under 18 years old 14-50 ng/L; Male 21-50 ng/L: Consistent with possible cardiac damage and possible increased clinical risk. Serial measurements may help to assess extent of myocardial damage. >50 ng/L: Consistent with cardiac damage, increased clinical risk and myocardial infarction. Serial measurements may help assess extent of myocardial damage. NOTE: Children less than 1 year old may have higher baseline troponin levels and results should be interpreted in conjunction with the overall clinical context. NOTE: Troponin I testing is performed using a different testing methodology at [facility] than at other [facility]. Direct result comparisons should only be made within the same method. [facility] Troponin I, High Sensitivity , Initialon 06-23-2023 Tropinin I.cardiac panel High sensitivity method ng/L 0 - 20 ng/L [facility] Troponin I.cardiac panelon 0 06-23-2023 Tropinin I.cardiac panel High sensitivity method <3 Normal 0-20 [facility] Comment on above: Order Comment: Less than 99th percentile of normal range cutoff- Female and children under 18 years old <14 ng/L; Male <21 ng/L: Negative Repeat testing should be performed if clinically indicated. Female and children under 18 years old 14-50 ng/L; Male 21-50 ng/L: Consistent with possible cardiac damage and possible increased clinical risk. Serial measurements may help to assess extent of myocardial damage. >50 ng/L: Consistent with cardiac damage, increased clinical risk and myocardial infarction. Serial measurements may help assess extent of myocardial damage. NOTE: Children less than 1 year old may have higher baseline troponin levels and results should be interpreted in conjunction with the overall clinical context. NOTE: Troponin I testing is performed using a different testing methodology at [facility] than at [facility]. Direct result comparisons should only be made within the same method. Performed By: #### 8 [id number] #### SAURABH BRAVO ([id number]) [facility] ([facility]) [address] [place] [address] Tropinin I.cardiac panel High sensitivity method <3 Normal 0-20 [facility] Comment on above: Order Comment: Less than 99th percentile of normal range cutoff- Female and children under 18 years old <14 ng/L; Male <21 ng/L: Negative Repeat testing should be performed if clinically indicated. Female and children under 18 years old 14-50 ng/L; Male 21-50 ng/L: Consistent with possible cardiac damage and possible increased clinical risk. Serial measurements may help to assess extent of myocardial damage. >50 ng/L: Consistent with cardiac damage, increased clinical risk and myocardial infarction. Serial measurements may help assess extent of myocardial damage. NOTE: Children less than 1 year old may have higher baseline troponin levels and results should be interpreted in conjunction with the overall clinical context. NOTE: Troponin I testing is performed using a different testing methodology at [facility] than at [facility]. Direct result comparisons should only be made within the same method. Performed By: #### 8 [id number] #### SAURABH BRAVO ([id number]) [facility] ([facility]) [address] [place] [address] 11874 Troponin, High Sensitivity, 1 Houron 06-23-2023 Tropinin I.cardiac panel High sensitivity method ng/L 0 - 20 ng/L [facility] XR CHEST 1 VIEWon 06-23-2023 XR CHEST 1 VIEW Interpreted By: Burt Mancini, STUDY: XR CHEST 1 VIEW; 06/23/2023 11:03 am INDICATION: Signs/Symptoms:tightness in chest. COMPARISON: 05/19/2022 ACCESSION NUMBER(S): [id number] ORDERING CLINICIAN: LULA ERNST FINDINGS: The lungs are clear without apparent pleural effusion. Unremarkable cardiomediastinal silhouette. No pulmonary vascular congestion. IMPRESSION: No active disease in the chest. Signed by: Butr Mendez 06/23/2023 11:12 AM Dictation workstation: [id number] Normal [facility] XR Chest Single viewon 06-23 No active disease in the chest. Signed by: Burt Mendez 06/23/2023 11:12 AM Dictation workstation: [id number] MMODAL Interpreted By: Burt Mancini, STUDY: XR CHEST 1 VIEW; 06/23/2023 11:03 am INDICATION: Signs/Symptoms:tightness in chest. COMPARISON: 05/19/2022 ACCESSION NUMBER(S): [id number] ORDERING CLINICIAN: LULA ERNST FINDINGS: The lungs are clear without apparent pleural effusion. Unremarkable cardiomediastinal silhouette. No pulmonary vascular congestion. [facility] MMODAL Burt Mendez MD - 06/23/2023 Interpreted By: Burt Mendez, STUDY: XR CHEST 1 VIEW; 06/23/2023 11:03 am INDICATION: Signs/Symptoms:tightness in chest. COMPARISON: 05/19/2022 ACCESSION NUMBER(S): [id number] ORDERING CLINICIAN: LULA ERNST FINDINGS: The lungs are clear without apparent pleural effusion. Unremarkable cardiomediastinal silhouette. No pulmonary vascular congestion. IMPRESSION: No active disease in the chest. Signed by: Burt Mendez 06/23/2023 11:12 AM Dictation workstation: [id number] [facility] Work Phone: Radiology Study observation (narrative) [facility] Work Phone: XR Chest Single viewOrdered By: Burt Mendez on 06-23-2023 [facility] Work Phone: COMPREHENSIVE PANELon 2022 Albumin [Mass/Vol] 4.0 g/dL Normal 3.4 - 5.0 [facility] Comment on above: Performed By: #### B MP #### [address] [address] ALP [Catalytic activity/Vol] 86 U/L Normal 33 - 136 [facility] Comment on above: Performed By: #### B MP #### [address] [address] ALT [Catalytic activity/Vol] 26 U/L Normal 10 - 52 [facility] Comment on above: Result Comment: Geraldine ents treated with Sulfasalazine may generate falsely decreased results for ALT. Performed By: #### B MP #### [address] [address] Anion gap [Moles/Vol] 12 mmol/L Normal 10 - 20 [facility] Comment on above: Performed By: #### B MP #### [address] [address] AST [Catalytic activity/Vol] 18 U/L Normal 9 - 39 [facility] Comment on above: Performed By: #### B MP #### [address] [address] Bilirubin [Mass/Vol] 0.6 mg/dL Normal 0.0 - 1.2 [facility] Comment on above: Performed By: #### B MP #### [address] [address] Calcium [Mass/Vol] 9.4 mg/dL Normal 8.6 - 10.3 [facility] Comment on above: Performed By: #### B MP #### [address] [address] Chloride [Moles/Vol] 102 mmol/L Normal 98 - 107 [facility] Comment on above: Performed By: #### B MP #### [address] [address] Creatinine [Mass/Vol] 1.18 mg/dL Normal 0.50 - 1.30 [facility] Comment on above: Performed By: #### B MP #### [address] [address] GFR/1.73 sq M.predicted among non-blacks MDRD (S/P/Bld) [Vol rate/Area] 70 mL/min/{1.73_m2} Normal >90 [facility] Comment on above: Result Comment: CALC ULATIONS OF ESTIMATED GFR ARE PERFORMED USING THE 2020 CKD-EPI STUDY REFIT EQUATION WITHOUT THE RACE VARIABLE FOR THE IDMS-TRACEABLE CREATININE METHODS. https://jasn.asnjournals.org/content/early//ASN.5468401931 Performed By: #### B MP #### [address] [address] Glucose [Mass/Vol] 89 mg/dL Normal 74 - 99 [facility] Comment on above: Performed By: #### B MP #### [address] [address] HCO3 (Bld) [Moles/Vol] 29 mmol/L Normal 21 - 32 [facility] Comment on above: Performed By: #### B MP #### [address] [address] Potassium [Moles/Vol] 4.1 mmol/L Normal 3.5 - 5.3 [facility] Comment on above: Performed By: #### B MP #### [address] [address] Protein [Mass/Vol] 6.5 g/dL Normal 6.4 - 8.2 [facility] Comment on above: Performed By: #### B MP #### [address] [address] Sodium [Moles/Vol] 139 mmol/L Normal 136 - 145 [facility] Comment on above: Performed By: #### B MP #### [address] [address] Urea nitrogen [Mass/Vol] 16 mg/dL Normal 6 - 23 [facility] Comment on above: Performed By: #### B MP #### [address] [address] HEMOGLOBIN A1Con 02-04-2023 Glucose [Mass/Vol] 120 mg/dL Normal [facility] Comment on above: Performed By: #### H BA1E #### [address] [address] HbA1c (Bld) [Mass fraction] 5.8 % Abnormal [facility] Comment on above: Result Comment: Diag nosis of Diabetes-Adults Non-Diabetic: < or = 5.6% Increased risk for developing diabetes: 5.7-6.4% Diagnostic of diabetes: > or = 6.5% . Monitoring of Diabetes Age (y) Therapeutic Goal (%) Adults: >18 <7.0 Pediatrics: 13-18 <7.5 7-12 <8.0 0- 6 7.5-8.5 [place] [employer]. Diabetes Care 33(S1), Jun 2009. Performed By: #### H BA1E #### [address] [address] LIPID PANEL (CORONARY RISK 2 )on 02-04-2023 Cholesterol [Mass/Vol] 115 mg/dL Normal 0 - 199 [facility] Comment on above: Result Comment: . AGE DESIRABLE BORDERLINE HIGH HIGH 0-19 Y 0 - 169 170 - 199 >/= 200 20-24 Y 0 - 189 190 - 224 >/= 225 >24 Y 0 - 199 200 - 239 >/= 240 All ranges are based on fasting samples. Specific therapeutic targets will vary based on patient-specific cardiac risk. . Pediatric guidelines reference:Pediatrics 2011, 128(S5). Adult guidelines reference: NCEP ATPIII Guidelines, GLORY 2001, 258:2486-97 . Venipuncture immediately after or during the administration of Metamizole may lead to falsely low results. Testing should be performed immediately prior to Metamizole dosing. Performed By: #### L IPID #### [address] [address] Cholesterol in HDL [Mass/Vol] 32.0 mg/dL Abnormal [facility] Comment on above: Result Comment: . AGE VERY LOW LOW NORMAL HIGH 0-19 Y < 35 < 40 40-45 ---- 20-24 Y ---- < 40 >45 ---- >24 Y ---- < 40 40-60 >60 . Performed By: #### L IPID #### [address] [address] Cholesterol in LDL [Mass/Vol] 50 mg/dL Normal 0 - 99 [facility] Comment on above: Result Comment: . NEAR BORD AGE DESIRABLE OPTIMAL HIGH HIGH VERY HIGH 0-19 Y 0 - 109 --- 110-129 >/= 130 ---- 20-24 Y 0 - 119 --- 120-159 >/= 160 ---- >24 Y 0 - 99 100-129 130-159 160-189 >/=190 . Performed By: #### L IPID #### [place] [id number] Cholesterol in VLDL [Mass/Vol] 33 mg/dL Normal 0 - 40 [facility] Comment on above: Performed By: #### L IPID #### [place] [id number] Cholesterol.total /Cholesterol in HDL [Mass ratio] 3.6 {ratio} Normal [facility] Comment on above: Result Comment: REF VALUES DESIRABLE < 3.4 HIGH RISK > 5.0 Performed By: #### L IPID #### [place] [id number] Triglyceride [Mass/Vol] 166 mg/dL High 0 - 149 [facility] Comment on above: Result Comment: . AGE DESIRABLE BORDERLINE HIGH HIGH VERY HIGH 0 D-90 D 19 - 174 ---- ---- ---- 91 D- 9 Y 0 - 74 75 - 99 >/= 100 ---- 10-19 Y 0 - 89 90 - 129 >/= 130 ---- 20-24 Y 0 - 114 115 - 149 >/= 150 ---- >24 Y 0 - 149 150 - 199 200- 499 >/= 500 . Venipuncture immediately after or during the administration of Metamizole may lead to falsely low results. Testing should be performed immediately prior to Metamizole dosing. Performed By: #### L IPID #### [place] [address] Lab Specimen Source Normal [facility] Comment on above: Performed By: #### L IPID #### [place] [address] Performed By: #### Bo BA1E #### [place] [address] Performed By: #### Luigi MP #### [place] [id number] PROSTATE SPEC.AG,SCREENon PROSTATE SPEC.AG,SCREEN 1.03 ng/mL Normal 0.00 - 4.00 [facility] Comment on above: Result Comment: The FDA requires that the method used for PSA assay be reported to the physician. Values obtained with different assay methods must not be used interchangeably. This test was performed at [facility] using the [employer] PSA assay is a two-site immunoenzymatic sandwich assay. The assay is approved for measurement of prostate-specific antigen (PSA)in serum and may be used in conjunction with a digital rectal examination in men 50 years and older as an aid in detection of prostate cancer. 5-Hzzkd-jbbjrluey inhibitors (e.g. Proscar, Finasteride, Avodart, Dutasteride and Veena) for the treatment of BPH have been shown to lower PSA levels by an average of 50% after 6 months of treatment. Performed By: #### P SASC #### [place] [id number] VITAMIN D, 25-HYDROXYon 09-15 VITAMIN D, 25-HYDROXY 57 ng/mL Normal [facility] Comment on above: Result Comment: . DEFICIENCY: < 20 NG/ML INSUFFICIENCY: 20-29 NG/ML SUFFICIENCY: 30-100 NG/ML THIS ASSAY ACCURATELY QUANTIFIES THE SUM OF VITAMIN D3, 25-HYDROXY AND VIT D2,25-HYDROXY. Performed By: #### V TDOH #### [place] [id number] COMPREHENSIVE METABOLIC PANE Jayy 08-16-2022 Albumin [Mass/Vol] 4.1 g/dL 3.5 - 5.0 g/dL [facility] ALP [Catalytic activity/Vol] 79 U/L 32 - 126 U/L [facility] ALT [Catalytic activity/Vol] 27 U/L 10 - 52 U/L [facility] Anion gap [Moles/Vol] 11 mmol/L 7 - 17 mmol/L [facility] AST [Catalytic activity/Vol] 23 U/L 10 - 39 U/L [facility] Bilirubin [Mass/Vol] 0.6 mg/dL NINF - 1.5 mg/dL [facility] Calcium [Mass/Vol] 9.6 mg/dL 8.6 - 10.5 mg/dL [facility] Chloride [Moles/Vol] 104 mmol/L 98 - 108 mmol/L [facility] CO2 [Moles/Vol] 29 mmol/L 21 - 31 mmol/L [facility] Creatinine [Mass/Vol] 1.06 mg/dL 0.70 - 1.30 mg/dL [facility] GFR/1.73 sq M.predicted CKD-EPI (S/P/Bld) [Vol rate/Area] 80 - PINF [facility] Comment on above: Reported eGFR is bas ed on the CKD-EPI 2020 equation using creatinine, age, and sex. Glucose [Mass/Vol] 147 mg/dL High 70 - 99 mg/dL [facility] Interpretation and review of laboratory results Abnormal [facility] Osmolality Calc [Osmolality] 296 [facility] Potassium [Moles/Vol] 4.0 mmol/L 3.5 - 5.0 mmol/L [facility] Protein [Mass/Vol] 7.1 g/dL 6.4 - 8.3 g/dL [facility] Sodium [Moles/Vol] 140 mmol/L 135 - 145 mmol/L [facility] Urea nitrogen [Mass/Vol] 13 mg/dL 7 - 25 mg/dL [facility] Urea nitrogen/Creatini ne [Mass ratio] 12 mg/mg [facility] FSHon 08-16-2022 Follitropin Qn 1.2 m[IU]/mL mIU/mL [facility] Comment on above: Reference Range: Adult Male: <18.1 mIU/Ml Adult Female: Follicular: 2.5-10.2 mIU/Ml Midcycle: 3.4-33.4 mIU/Ml Luteal: 1.5-9.1 mIU/mL : <0.3 mIU/mL Post Menopausal: 23.0-116.3 mIU/mL [facility] HEMOGLOBIN [id number] By: Mary Rico on 08-16-2022 Average glucose Estimated from glycated hemoglobin (Bld) [Mass/Vol] 174 mg/dL [facility] HbA1c (Bld) [Mass fraction] 7.7 % High 4.7 - 5.6 % [facility] Interpretation and review of laboratory results Abnormal [facility] LHon 08-16-2022 Lutropin Qn 0.16 m[IU]/mL mIU/mL [facility] Comment on above: Reference Range: Females: Follicular phase 1.9-12.5 mIU/Ml Midcycle peak 8.7-76.3 mIU/Ml Luteal phase 0.5-16.9 mIU/Ml <0.1-1.5 mIU/Ml Postmenopausal 15.9-54.0 mIU/Ml Contraceptives 0.7-5.6 mIU/Ml Males: 20 - 70 years 1.5-9.3 mIU/Ml > 70 years 3.1-4.6 mIU/Ml Children: <0.1-6.0 mIU/Ml No Panel Informationon 08-16 [facility] T3 TOTAL (TRIIODOTHYRONINE)o n 08-16-2022 Interpretation and review of laboratory results Normal [facility] T3 [Mass/Vol] 1.00 ng/mL 0.60 - 1.81 ng/mL [facility] T4 FREEon 08-16-2022 Free T4 [Mass/Vol] 1.23 ng/dL 0.89 - 1.76 ng/dL [facility] Interpretation and review of laboratory results Normal [facility] TESTOSTERONEon 08-16-2022 Interpretation and review of laboratory results Normal [facility] Testosterone [Mass/Vol] 397 ng/dL 87 - 814 ng/dL [facility] VITAMIN D (25-HYDROXY,TOTAL) on 08-16-2022 Interpretation and review of laboratory results Normal [facility] Vitamin D+Metabolites [Mass/Vol] 65.4 ng/mL 30.0 - 100.0 ng/mL [facility] Comment on above: <10 Deficiency 10-29 Insufficiency 30-100 Optimal Level >100 Possible Toxicity Vitamin D values hav e been shown to be falsely decreased in lipemic samples and should be interpreted with caution. [facility] Office Visiton 08-02-2022 Follow-up visit Diagnoses/Problems Upper respiratory infection (465.9) (J06.9) Orders Upper respiratory infection Start: Azithromycin 250 MG Oral Tablet; TAKE 2 TABLETS ON DAY 1 THEN TAKE 1 TABLET A DAY FOR 4 DAYS Chief Complaint cough History of Present Illnesscough since yesterday but not congested or wheezing ST today SN not noted, No fever or exhaustion RN today, PND COVID-19 neg No headache or achiness Cough drops help did not keep awake last night Delsym helped 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) HTN (hypertension) (401.9) (I10) Low back pain of thoracolumbar region with sciatica (724.4,724.3) (M54.40) Low testosterone (790.99) (R79.89) Medication management (V58.69) (Z79.899) Morbid obesity with BMI of 40.0-44.9, adult (278.01,V85.41) (E66.01,Z68.41) Nausea and vomiting (787.01) (R11.2) Polyarthralgia (719.49) (M25.50) Screening for prostate cancer (V76.44) (Z12.5) Secondary hypothyroidism (244.8) (E03.8) Sinusitis (473.9) (J32.9) Sleep apnea (780.57) (G47.30) Vitamin D deficiency (268.9) (E55.9) Past Medical History History of COVID-19 virus infection (079.89) (U07.1) Resolved Date: 14 Sep 2021 History of cough Resolved Date: 31 Aug 2020 History of Impacted cerumen of left ear (380.4) (H61.22) Resolved Date: 14 Sep 2021 History of Laryngotracheobronchitis (490) (J40) Resolved Date: 31 Aug 2020 History of Stage 3a chronic kidney disease (585.3) (N18.31) Resolved Date: 14 Sep 2021 History of Thoracic back pain (724.1) (M54.6) Resolved Date: 14 Sep 2021 Surgical History History of Cholecystectomy History of Colonoscopy History of Pituitary surgery tumor removal History of Sinus surgery Social History Does not have living will Never a smoker No recent foreign travel Allergies Bactrim Recorded By: Pema Low; 07/17/2019 10:16:15 AM Additional reactions - O/E - fever; Generalized headache Current Meds Medication NameInstruction Aspirin 81 81 MG Oral Tablet Delayed ReleaseTAKE 1 TABLET DAILY. Esomeprazole Magnesium 40 MG Oral Capsule Delayed ReleaseTAKE 1 CAPSULE ONCE DAILY. Fluticasone Propionate 50 MCG/ACT Nasal Suspension1 spray in each nostril twice daily as needed for post-nasal drip Humatrope 12 MG SOLRINJECT 0.4 MG Daily Hydrocortisone 5 MG Oral Tablet2.5 tabs qam, 1 qnoon, 1 q evening Levothyroxine Sodium 200 MCG Oral TabletTAKE 1 TABLET DAILY. Metoprolol Tartrate 25 MG Oral TabletTAKE 0.5 TABLET Twice daily Rosuvastatin Calcium 10 MG Oral TabletTAKE 1 TABLET AT BEDTIME. Testosterone 20.25 MG/ACT (1.62%) Transdermal GelAPPLY TWO PUMP PRESSES ONE TIME DAILY DIRECTED Vitamin D (Cholecalciferol) 25 MCG (1000 UT) Oral TabletTAKE 1 TABLET DAILY. Vitals Vital Signs Recorded: [id number] 02:57PM Jjbiodimvlw22.2 F, Oral Heart Rate80 Xblzqyqy350, LUE Mundbwmyo10, LUE Height5 ft 9.25 in Hivdkm394 lb BMI Xcrcbhoiln33.27 kg/m2 BSA Calculated2.47 Tobacco Useb) No PHQ-2 #1. Over the last 2 weeks have you felt down, depressed or hopeless? (If yes, answer PHQ-9 below)No PHQ-2 #2. Over the last 2 weeks have you felt little interest or pleasure in doing things? (If yes, answer PHQ-9 below)No Falls Screening (Age 18+)b) One or more falls in the last year Physical Exam Physical Examination General: Alert and oriented, No acute distress. Eye: Normal conjunctiva. HENT: Tympanic membranes are clear, Normal hearing, Oral mucosa is moist. Nose: Both nostrils, Within normal limits. Sinus: Bilateral, Frontal sinus, Maxillary sinus, No tenderness. Throat: Pharynx erythematous, No exudate Neck: anterior lymphadenopathy Respiratory: Lungs are clear to auscultation, Respirations are non-labored, Breath sounds are equal, Symmetrical chest wall expansion. Cardiovascular: Normal rate, Regular rhythm, No murmur Integumentary: Warm, Dry, [place]. Psychiatric: Cooperative, Appropriate mood AND affect, Normal judgment. Behavior: No pressured speech. Judgment: Able to make sensible decisions. Thought process: Appropriate Signatures Electronically signed by : Althea Yang MD; Aug 02 2022 3:31PM EST (Author) Normal [email or web address] Tobacco Screening.on 023 Adult depression screening assessment No [facility] Work Phone: Fall risk assessment b) One or more falls in the last year [facility] Work Phone: Tobacco use status [facility]PH[facility] b) No [facility] Work Phone: Clinical Event Note-Abnormal Test Resulton 05-21-2022 Clinical Event Note-Abnormal Test Result Clinical Event: Clinical Event Note: TopicAbnormal Test Result Details Central lab reported patient + for Norovirus in stool sample, Dr Wallace informed of result , reviewed chart, no further intervention needed. Dr Wallace had seen and treated same patient 1 day earlier. Call placed to patient to inform of abnormal test result. Electronic Signatures: Victoria Alexandre (GAYLA) (Signed 21-May-2022 06:07) Authored: Clinical Event Note Last Updated: 21-May-2022 06:07 by Victoria Alexandre (GAYLA) Normal [facility] STOOL PATHOGEN PCR PANELon 1 07-22-2021 CAMPYLOBACTER GP. Not detected Normal NOT DETECTED [facility] Comment on above: Order Comment: POS N OROVIRUS CALLED TO LILIANA ALEXANDRE, 05/20/2022 23:48 Performed By: #### B MP #### [place] [id number] [place] [address] NOROVIRUS GI/GII Detected Critically abnormal NOT DETECTED [facility] Comment on above: Order Comment: POS N OROVIRUS CALLED TO LILIANA ALEXANDRE, 05/20/2022 23:48 Result Comment: POS NOROVIRUS CALLED TO LILIANA ALEXANDRE, 05/20/2022 23:48 Performed By: #### B MP #### [place] [address] ROTAVIRUS A Not detected Normal NOT DETECTED [facility] Comment on above: Order Comment: POS N OROVIRUS CALLED TO LILIANA ALEXANDRE, 05/20/2022 23:48 Result Comment: The enteric PCR panel is a panel of sensitive and specific amplified nucleic acid tests indicated as an aid in the diagnosis of specific bacterial and viral agents of gastrointestinal illness, in conjunction with other clinical, laboratory, and epidemiological information. This test is not approved for monitoring these infections. Monitoring is available for Salmonella and Shigella infections-request test Stool PCR Follow-Up (STLPF). Monitoring tests are not available at this time for other enteric agents in this panel. Performed By: #### B MP #### [place] [address] SALMONELLA SP. Not detected Normal NOT DETECTED [facility] Comment on above: Order Comment: POS N OROVIRUS CALLED TO LILIANA ALEXANDRE, 05/20/2022 23:48 Performed By: #### B MP #### [place] [address] SHIGA TOXIN 1 Not detected Normal NOT DETECTED [facility] Comment on above: Order Comment: POS N OROVIRUS CALLED TO LILIANA ALEXANDRE, 05/20/2022 23:48 Performed By: #### B MP #### [place] [address] SHIGA TOXIN 2 Not detected Normal NOT DETECTED [facility] Comment on above: Order Comment: POS N OROVIRUS CALLED TO LILIANA ALEXANDRE, 05/20/2022 23:48 Performed By: #### B MP #### [place] [address] SHIGELLA SP. Not detected Normal NOT DETECTED [facility] Comment on above: Order Comment: POS N OROVIRUS CALLED TO LILIANA ALEXANDRE, 05/20/2022 23:48 Performed By: #### B MP #### [place] [address] [employer] Not detected Normal NOT DETECTED [facility] Comment on above: Order Comment: POS N OROVIRUS CALLED TO LILIANA ALEXANDRE, 05/20/2022 23:48 Performed By: #### B MP #### [place] [address] YERSINIA ENTEROCOLITICA Not detected Normal NOT DETECTED [facility] Comment on above: Order Comment: POS N OROVIRUS CALLED TO LILIANA ALEXANDRE, 05/20/2022 23:48 Performed By: #### B MP #### [place] [address] CLOST DIFF. TOXIN, PCRon CLOST.DIFF.TOXIN, PCR Not detected Normal Not Detected [facility] Comment on above: Result Comment: This assay detects the presence of the tcdB (toxin B) gene via DNA amplification, and results should be interpreted in the context of the patients history and clinical findings. This test cannot be performed on formed stools or used as a test of cure, and should not be performed more than once per 7 days. Performed By: #### C DTPC #### [place] [address] Lab Specimen Source Stool Normal [facility] Comment on above: Performed By: #### C DTPC #### [place] [address] STOOL PATHOGEN PCR PANELon 1 07-21-2021 Lab Specimen Source Normal [facility] Comment on above: Order Comment: POS N OROVIRUS CALLED TO LILIANA ALEXANDRE, 05/20/2022 23:48 Performed By: #### B MP #### [place] [address] BASIC METABOLIC PANELon 12-0 Anion gap [Moles/Vol] 11 mmol/L Normal 10 - 20 [facility] Comment on above: Performed By: #### B MP #### [place] [address] Calcium [Mass/Vol] 9.2 mg/dL Normal 8.6 - 10.3 [facility] Comment on above: Performed By: #### B MP #### [address] [address] Chloride [Moles/Vol] 103 mmol/L Normal 98 - 107 [facility] Comment on above: Performed By: #### B MP #### [address] [address] Creatinine [Mass/Vol] 1.17 mg/dL Normal 0.50 - 1.30 [facility] Comment on above: Performed By: #### B MP #### [address] [address] GFR/1.73 sq M.predicted among non-blacks MDRD (S/P/Bld) [Vol rate/Area] 71 mL/min/{1.73_m2} Normal >90 [facility] Comment on above: Result Comment: CALC ULATIONS OF ESTIMATED GFR ARE PERFORMED USING THE 2020 CKD-EPI STUDY REFIT EQUATION WITHOUT THE RACE VARIABLE FOR THE IDMS-TRACEABLE CREATININE METHODS. https://jasn.asnjournals.org/content/early//ASN.6915825301 Performed By: #### B MP #### [address] [address] Glucose [Mass/Vol] 159 mg/dL High 74 - 99 [facility] Comment on above: Performed By: #### B MP #### [address] [address] HCO3 (Bld) [Moles/Vol] 27 mmol/L Normal 21 - 32 [facility] Comment on above: Performed By: #### B MP #### [address] [address] Potassium [Moles/Vol] 4.1 mmol/L Normal 3.5 - 5.3 [facility] Comment on above: Performed By: #### B MP #### [address] [address] Sodium [Moles/Vol] 137 mmol/L Normal 136 - 145 [facility] Comment on above: Performed By: #### B MP #### [address] [address] Urea nitrogen [Mass/Vol] 17 mg/dL Normal 6 - 23 [facility] Comment on above: Performed By: #### B MP #### [address] [address] BNPon 05-19-2022 Natriuretic peptide B (Bld) [Mass/Vol] 7 pg/mL Normal 0 - 99 [facility] Comment on above: Result Comment: . <1 00 pg/mL - Heart failure unlikely 100-299 pg/mL - Intermediate probability of acute heart . failure exacerbation. Correlate with clinical . context and patient history. >=300 pg/mL - Heart Failure likely. Correlate with clinical . context and patient history. BNP testing is performed using different testing methodology at [facility] than at other [facility]. Direct result comparisons should only be made within the same method. Performed By: #### B NP2 #### [place] [id number] CBC AND DIFFERENTIALon 05-19 % AUTOMATED IMMATURE GRAN 0.4 % Normal 0.0 - 0.9 [facility] Comment on above: Result Comment: Mary Jane ture Granulocyte Count (IG) includes promyelocytes, myelocytes and metamyelocytes but does not include bands. Percent differential counts (%) should be interpreted in the context of the absolute cell counts (cells/L). Performed By: #### C BCDF #### [address] [address] Basophils (Bld) [#/Vol] 0.02 10*3/uL Normal 0.00 - 0.10 [facility] Comment on above: Performed By: #### C BCDF #### [address] [address] Basophils/100 WBC (Bld) 0.3 % Normal 0.0 - 2.0 [facility] Comment on above: Performed By: #### C BCDF #### [address] [address] Eosinophils (Bld) [#/Vol] 0.14 10*3/uL Normal 0.00 - 0.70 [facility] Comment on above: Performed By: #### C BCDF #### [address] [address] Eosinophils/100 WBC (Bld) 2.1 % Normal 0.0 - 6.0 [facility] Comment on above: Performed By: #### C BCDF #### [address] [address] Erythrocyte distribution width (RBC) [Ratio] 12.6 % Normal 11.5 - 14.5 [facility] Comment on above: Performed By: #### C BCDF #### [address] [address] Hematocrit (Bld) [Volume fraction] 48.7 % Normal 41.0 - 52.0 [facility] Comment on above: Performed By: #### C BCDF #### [address] [address] Hemoglobin (Bld) [Mass/Vol] 16.1 g/dL Normal 13.5 - 17.5 [facility] Comment on above: Performed By: #### C BCDF #### [address] [address] Lymphocytes (Bld) [#/Vol] 1.11 10*3/uL Low 1.20 - 4.80 [facility] Comment on above: Performed By: #### C BCDF #### [address] [address] Lymphocytes/100 WBC (Bld) 16.4 % Normal 13.0 - 44.0 [facility] Comment on above: Performed By: #### C BCDF #### [address] [address] MCHC (RBC) [Mass/Vol] 33.1 g/dL Normal 32.0 - 36.0 [facility] Comment on above: Performed By: #### C BCDF #### [address] [address] MCV (RBC) [Entitic vol] 87 fL Normal 80 - 100 [facility] Comment on above: Performed By: #### C BCDF #### [address] [address] Monocytes (Bld) [#/Vol] 0.44 10*3/uL Normal 0.10 - 1.00 [facility] Comment on above: Performed By: #### C BCDF #### [address] [address] Monocytes/100 WBC (Bld) 6.5 % Normal 2.0 - 10.0 [facility] Comment on above: Performed By: #### C BCDF #### [address] [address] Neutrophils (Bld) [#/Vol] 5.02 10*3/uL Normal 1.20 - 7.70 [facility] Comment on above: Result Comment: Perc ent differential counts (%) should be interpreted in the context of the absolute cell counts (cells/L). Performed By: #### C BCDF #### [address] [address] Neutrophils/100 WBC (Bld) 74.3 % Normal 40.0 - 80.0 [facility] Comment on above: Performed By: #### C BCDF #### [address] [address] Platelets (Bld) [#/Vol] 161 10*3/uL Normal 150 - 450 [facility] Comment on above: Performed By: #### C BCDF #### [address] [address] RBC 5.61 x10E12/L Normal 4.50 - 5.90 [facility] Comment on above: Performed By: #### C BCDF #### [address] [address] WBC (Bld) [#/Vol] 6.8 10*3/uL Normal 4.4 - 11.3 [facility] Comment on above: Performed By: #### C BCDF #### [address] [address] CHEST 1 VIEWon 05-19-2022 CHEST 1 VIEW Patient Name: TRAVIS BARNEY STUDY: CHEST 1 VIEW; 05/19/2022 8:05 pm INDICATION: Chest Pain . COMPARISON: 04/04/2017 ACCESSION NUMBER(S): [id number] ORDERING CLINICIAN: PERI WALLACE FINDINGS: CARDIOMEDIASTINAL SILHOUETTE: Cardiomediastinal silhouette is normal in size and configuration. LUNGS: Lungs are clear. ABDOMEN: No remarkable upper abdominal findings. BONES: No acute osseous changes. IMPRESSION: 1. No evidence of acute cardiopulmonary process. Electronically signed by: RUFUS MIXON MD [facility] Covid 19 Resultson 2 SARS-CoV-2 (COVID-19) RNA GROVER+probe Ql (Unsp spec) NEGATIVE COVID-19 Test Coronaviruses are common world-wide and are the cause of many common colds. SARS-COV2 is a new coronavirus that began circulating worldwide in 2019 so we are calling it COVID-19. It has been estimated that four out of five patients with COVID-19 will recover at home without the need for medical attention. Symptoms of COVID-19 may include cough, fever, shortness of breath, loss of taste or smell and other flu-like symptoms including chills, sore muscles, sore throat, and headache. Severe illness is more common in older people and people with other health problems such as high blood pressure, obesity, and immune system problems. If the test is positive, you have COVID-19. You will be contacted by the ordering physicians office and instructed to remain on home isolation, in accordance with CDC guidelines. You may also be contacted by the [facility] to see if any of your close contacts may have been exposed to the virus and need to quarantine. If the test is negative, you likely do not have COVID-19 at this time, but you still may have a different illness that can spread to other people (like Influenza, or the Flu) and could still be at risk for getting COVID-19. We recommend that you stay away from other people to limit the spread of illness until your symptoms are improving and you are fever-free for 24 hours without the use of fever lowering medications such as acetaminophen or ibuprofen. No test is 100% accurate so if you are still concerned you may have COVID-19, talk to your doctor about the need to continue to stay away from others. Medicines Unless your provider told you not to use the following: Acetaminophen (Tylenol and others) is generally safe. Anti-inflammatory medications, such as Ibuprofen (Advil or Motrin) or Naproxen (Aleve) can also be used. Zhfg-hze-fwqdrce cough and cold medicines can be used according to the instructions on the package. Some gnpp-doa-bckfubs medicines also contain acetaminophen. Make sure you are not taking more than your recommended dose. For those not hospitalized, there is no specific treatment available for this illness. Antibiotics do not treat Coronaviruses. Follow-Up Follow up with your doctor by scheduling a virtual visit or consider follow-up at one of our urgent care fever clinics. If you are having difficulty breathing, or are very weak and having difficulty standing, this is a medical emergency. Call 911 or have someone take you to the nearest emergency room immediately. If possible, wear a facemask. Additional guidance from the CDC for patients who tested POSITIVE for COVID-19 How to isolate: Isolate yourself in a specific room at home and limit your contact with others. Use a separate bathroom from other members of the household, when possible. Leave home only to get essential medical care. Do not go to work, school or public areas. Avoid using public transportation, ride-sharing, or taxis. Restrict contact with pets and other animals. If you must care for your pet or be around animals while you are sick, wash your hands before and after your interaction and wear a facemask. Make sure that shared spaces in the home have good airflow, such as by an air conditioner or an opened window, weather permitting. Personal Hygiene Procedures: Wear a face mask when in the same room as other people or pets. If a face mask interferes with your breathing, others should wear a mask when sharing space with you. Frequent hand-washing: wash your hands with soap and water for at least 20 seconds. If soap and water are not available, use alcohol-based hand emergency room doctor. Avoid touching your eyes, nose, and mouth with unwashed hands. Household Hygiene Procedures: Avoid sharing personal household items such as dishes, glassware, cups, eating utensils, towels or bedding with other people or pets in your home. After use, these items should be washed with soap and hot water. Disinfect all high-touch surfaces every day with antibacterial cleaning solutions such as Lysol wipes, bleach, cleansers, etc. High-touch surfaces include tabletops, doorknobs, bathroom fixtures, toilets, phones, keyboards, tablets and bedside tables. Immediately clean any surfaces that may have blood, poop or body fluids on them, using antibacterial cleaning solutions such as Lysol wipes, bleach, cleansers, etc. If clothing or bedding come into contact with blood, poop or body fluids, they should be washed immediately. Follow the directions on the laundry detergent and clothing labels but hot water is recommended when possible. Stopping home isolation precautions: If possible, consult your doctor before stopping home isolation precautions. According to the CDC, you can discontinue home isolation precautions when you have met both of these criteria: Your fever and respiratory symptoms have been gone for 24 lavelle (more content not included)... Normal [facility] INFLUENZA A/B, COVID 2019 PC R,SYMPTOMATICon 05-19-2022 INFLUENZA A, PCR Not detected Normal Not Detected [facility] Comment on above: Result Comment: Resp iratory virus testing is performed routinely by PCR for Influenza A/B and RSV. Not Detected results do not preclude Influenza A/B or RSV infections since the adequacy of sample collection or low viral burden may impact the clinical sensitivity of this test method. Performed By: #### C OINP #### [place] [address] INFLUENZA B, PCR Not detected Normal Not Detected [facility] Comment on above: Result Comment: Resp iratory virus testing is performed routinely by PCR for Influenza A/B and RSV. Not Detected results do not preclude Influenza A/B or RSV infections since the adequacy of sample collection or low viral burden may impact the clinical sensitivity of this test method. Performed By: #### C OINP #### [place] [address] SARS-CoV-2 (COVID-19) RNA GROVER+probe Ql (Unsp spec) Not detected Normal Not Detected [facility] Comment on above: Result Comment: . This test has received FDA Emergency Use Authorization (EUA) and has been verified by [facility]. This test is only authorized for the duration of time that circumstances exist to justify the authorization of the emergency use of in vitro diagnostic tests for the detection of SARS-CoV-2 virus and/or diagnosis of COVID-19 infection under section 564(b)(1) of the Act, 21 U.S.C. 360bbb-3(b)(1), unless the authorization is terminated or revoked sooner. [facility] is certified under CLIA-88 as qualified to perform high complexity testing. Testing is performed in the [facility] laboratory located at [address] [place] [address]. SARS-CoV-2/Flu/RSV Multiplex Test: Fact sheet for providers: https://www.fda.gov/media/193401/download Fact sheet for patients: https://www.fda.gov/media/434336/download Performed By: #### C OINP #### [place] [address] Lab Specimen Source Nasal, Nasopharyngeal Normal [facility] Comment on above: Performed By: #### C OINP #### [place] [address] Provider Note - ED v3on 12-0 Provider Note - ED v3 Provider Note: Chart Review ED NOTES ED NOTES: HPI: Is a 62-year-old male chief complaint of lightheadedness/dizziness. He had an episode of syncope around 11 AM this morning while he was standing using the restroom. States that he felt warm and flushed and went down slowly. Denies having any significant trauma at the time. He was eventually able to get back up and walk back to the bed but he was having fairly severe lightheadedness again but did not pass out. No other episodes throughout the day however he has felt lightheaded throughout the day. Feels kind of a knot in his chest. No shortness of breath. No radiating symptoms to the extremity neck or jaw. States he has had an extremely stressful past 3 months due to deaths in the family. Also reports watery diarrhea this afternoon approximately 5 episodes. He is currently on amoxicillin. ROS: Constitution: Denies Eyes: Ramiro Ears: Denies Nose: Denies Mouth/Teeth: Denies Throat/Neck: Denies Cardiovascular: Denies Respiratory: Denies Gastrointestinal: Denies Musculoskeletal: Denies Integumentary: Denies Endocrine: Denies Neuro: Denies Psychiatric: Denies Heme/Lymph: Denies Allergic/Immunologic: Denies Physical Exam I have reviewed the triage vital signs. Const: Well nourished, well developed, appears stated age, no acute distress Eyes: PERRL, EOM intact, no conjunctival injection, vision grossly normal HENT: Neck supple without meningismus , Moist mucous membranes, no pharyengeal swelling or exudate CV: Regular rate and rhythm, Warm, well-perfused extremities. Chest non tender RESP: Lungs clear bilaterally, Unlabored respiratory effort GI: soft, non-tender, non-distended, no masses : MSK: No gross deformities appreciated Back: Non tender, no pain with ROM Skin: Warm, dry. 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 Sensation and motor function of extremities grossly intact. Psych: Appropriate mood and affect. I have reviewed and confirmed nurses/medics notes for patient past, social and family history. Portions of this note were dictated by speech recognition. An attempt at proof reading was made to minimize errors. Minor errors in rf manager may be present. HISTORY OF PRESENTING ILLNESS TRAVIS is a 62 year old Male and was seen by me at 19-May-2022 19:42 for a chief complaint of dizziness (Pt complaint of dizziness, light headed and diarrhea starting this morning.)(1). Triage Information: Most recent Vital Sign Value Date Temp (F): 97 05-19-2022 19:46 Temp (C): 36.1 05-19-2022 19:46 Heart Rate (beats/min): 82 05-19-2022 19:46 Respirations (breaths/min): 18 05-19-2022 19:46 SpO2 (%): 97 05-19-2022 19:46 BP Systolic (mm Hg): 145 05-19-2022 19:46 BP Diastolic (mm Hg): 91 05-19-2022 19:46 PAST MEDICAL HISTORY ALLERGIES/INTOLERANCES: Allergy Allergen: Bactrim Type: Drug Reaction: Unknown HEALTH HISTORY: Medical History Name:Tachycardia Code:R00.0 Name:Hypothyroidism Code:E03.9 Name:Elevated cholesterol Code:E78.00 Name:GERD (gastroesophageal reflux disease) Code:K21.9 Name:Sleep apnea Code:G47.30 OUTPATIENT MEDICATIONS: Home Medications Review Status for Reconciliation: Complete Med Status: Patient Currently Takes Medications Drug Name: hydrocortisone Instructions: 15 milligram(s) orally once a day Drug Name: hydrocortisone 5 mg oral tablet Instructions: 1 tab(s) orally 2 times a day at noon and bedtime Drug Name: levothyroxine 200 mcg (0.2 mg) oral tablet Instructions: 1 tab(s) orally once a day Drug Name: aspirin 81 mg oral tablet Instructions: orally once a day Drug Name: Crestor 10 mg oral tablet Instructions: 1 tab(s) orally once a day Drug Name: Humatrope 12 mg injectable kit Instructions: 0.4 milliliter(s) injectable once a day Drug Name: hydrocortisone 5 mg oral tablet Instructions: 1 tab(s) orally 2 times a day Drug Name: Vitamin D3 Instructions: 4000 orally once a day Drug Name: testosterone 20.25 mg/1.25 g (1.62%) transdermal gel Instructions: 1 packet(s) orally 2 times a day Drug Name: esomeprazole 40 mg oral delayed release capsule Instructions: 1 cap(s) orally every other day Drug Name: Metoprolol Tartrate 25 mg oral tablet Instructions: 0.5 tab(s) orally 2 times a day SIGNIFICANT EVENTS: No documented data. CRITICAL CARE RESULTS: Recent Lab Results: I have reviewed these laboratory results: Clost Diff. Toxin, PCR 19-May-2022 22:38:00 ResultValue Clostridium Difficile Toxin, PCR NOT DETECTED Reference Range: Not Detected This assay detects the presence of the tcdB (toxin B) gene via DNA amplification, and results should be interpreted in the context of the patients history and clinical findings. This test cannot be p Fluid Source Stool Troponin I, High Sensitivity Trending View [id number] (more content not included)... Normal [facility] Risk Screen - Adult Emergenc yon 05-19-2022 Risk Screen - Adult Emergency Preferred Language: Preferred Language: Preferred Language for Discussing Health Care (patient/designee)Togolese Patient Preferred Pharmacy: Patient Preferred Pharmacy Statement: I have reviewed and updated the patient's preferred pharmacy selection for today's visit. Advanced Directives: Advance Directive/DNRno Family Violence Adult: Abuse Screen: Are you or have you been threatened or abused physically, emotionally, or sexually by anyoneno Learning Assessment (Patient): Learning Assessment (Patient): Patient is Able to be Assessed for Learningyes Factors Influencing Readiness to Learnacuteness of illness Factors that Impact Ability to Learnnone Devices/Methods Used to Communicatenone Learning Preferencesaudio Cultural Considerationsnone Developmental Considerationsnone Confucianist Considerationsnone Learning Assessment (Other Learner): Learning Assessment (Other Learner): Other learner availableno Pressure Injury/TB/Substance: Pressure Injury: Pressure Injury Present on Admissionno Do you have a coughno Smoking Statusnever smoker Alcohol Useoccasionally Drug Usedenies Drug 2 Usedenies Admission Risk Screen: Significant IndicatorsComplete CAGE: CAGE: Is this an injured patient at a Trauma Center ([facility] [place]/[facility] [place]): no Electronic Signatures: Amy Lucas (RN) (Signed 19-May-2022 19:48) Authored: Preferred Language, Patient Preferred Pharmacy, Advanced Directives, Family Violence Adult, Learning Assessment (Patient), Learning Assessment (Other Learner), Pressure Injury/TB/Substance, Pressure Injury, CAGE Last Updated: 19-May-2022 19:48 by Amy Lucas (RN) Normal [facility] TROPONIN I, HIGH SENSITIVITY on 05-19-2022 TROPONIN I, HIGH SENSITIVITY 3 ng/L Normal 0 - 20 [facility] Comment on above: Result Comment: . Less than 99th percentile of normal range cutoff- Female and children under 18 years old <14 ng/L; Male <21 ng/L: Negative Repeat testing should be performed if clinically indicated. . Female and children under 18 years old 14-50 ng/L; Male 21-50 ng/L: Consistent with possible cardiac damage and possible increased clinical risk. Serial measurements may help to assess extent of myocardial damage. . >50 ng/L: Consistent with cardiac damage, increased clinical risk and myocardial infarction. Serial measurements may help assess extent of myocardial damage. . NOTE: Children less than 1 year old may have higher baseline troponin levels and results should be interpreted in conjunction with the overall clinical context. . NOTE: Troponin I testing is performed using a different testing methodology at [facility] than at other [facility]. Direct result comparisons should only be made within the same method. Performed By: #### [facility] #### [address] [address] TROPONIN I, HIGH SENSITIVITY <3 Normal 0 - 20 [facility] Comment on above: Result Comment: . Less than 99th percentile of normal range cutoff- Female and children under 18 years old <14 ng/L; Male <21 ng/L: Negative Repeat testing should be performed if clinically indicated. . Female and children under 18 years old 14-50 ng/L; Male 21-50 ng/L: Consistent with possible cardiac damage and possible increased clinical risk. Serial measurements may help to assess extent of myocardial damage. . >50 ng/L: Consistent with cardiac damage, increased clinical risk and myocardial infarction. Serial measurements may help assess extent of myocardial damage. . NOTE: Children less than 1 year old may have higher baseline troponin levels and results should be interpreted in conjunction with the overall clinical context. . NOTE: Troponin I testing is performed using a different testing methodology at [facility] than at other [facility]. Direct result comparisons should only be made within the same method. Performed By: #### [facility] #### [address] [address] Triage - EDon 05-19-2022 Triage - ED Quick Triage: The patient and/or guardian verbally acknowledges placement for services into the following (when Urgent Care Service hours are operating):emergency department Chart Review: PRIMARY ASSESSMENT TRAVIS BARNEY's primary assessment is Within Defined Limits. The airway is open and patent. Breathing spontaneous and unlabored with clear breath sounds bilaterally. Circulation is normal with good peripheral pulses. Skin is warm and dry and color is normal for race. 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 Triage Date/Time: 19-May-2022 19:46 ANGEL: 3 Pain Rating (0-10): 0 = None Vital Signs: Temperature: 97.0F ( 36.1C) taken forehead Blood Pressure: 145/91 Mean: Heart Rate: 82 Respiratory Rate: 18 Pulse Oximetry: 97% on room air, no respiratory support. Height: 5 feet 9.00 inches. 175.2 CM Weight: 290.5 pounds. Calculated 131.8 kg. (stated) Calculated BMI (kg/m2): 42.938 Calculated BSA (m2) 2.53 Elin Coma Scale: Best Eye Response: (E4) spontaneous Best Motor Response: (M6) obeys commands Best Verbal Response: (V5) oriented Elin Score: 15 Cough lasting greater than 3 weeks: no Allergies: yes Mask applied: yes Patient has homicidal thoughts: no Symptoms Are Negative For: anorexia, blurred vision, chills, congestion, earache, fever, headache, malaise, nausea and vomiting. Last Known Well: unknown Risk Screens Suicide Risk Screen In the Past Month: Have you wished you were or wished you could go to sleep and not wake up no In the Past Month: Have you had any actual thoughts of killing yourself no In Your Lifetime: Have you ever done anything, started to do anything, or prepared to do anything to end your life no Nevarez Fall Scale Screening Has the patient fallen before (or is the patient in the ED as a result of a fall) has not had a fall Does the patient have an impaired gait does not have impaired gait Is the patient cognitively impaired not cognitively impaired Interventions: Geri Fall Interventions: LOW INTERVENTIONS: *patient oriented to surroundings and call system, * patient/family falls education completed and documented, *patients fall status communicated during bedside handoff, *whiteboard updated, *mode of toileting discussed with patient, *bed in low position with brakes locked, *call light in reach, * non-skid footwear PAST MEDICAL HISTORY Immunization History: Last Known Tetanus Immunization: Unknown TRAVEL HISTORY Travel History Coronavirus Screening: no exposure or symptoms Travel Exposure History: NO travel to International locations in the past 30 days PAIN Pain Scale Used: JOE Pain Rating (0-10): 0 = None Past Medical History: Past Medical History Reviewedyes Electronic Signatures: Amy Lucas) (Signed 19-May-2022 19:48) Authored: Quick Triage, Risk Screens, Pain, Arrival, ABCD, Immunizations, Travel History, Chart Review, Scores, Past Medical History Last Updated: 19-May-2022 19:48 by Amy Lucas (RN) Normal [facility] Office Visit (Family Erika covarrubias)on 05-13-2022 Follow-up visit Diagnoses/Problems Chronic allergic rhinitis (477.9) (J30.9) Sinusitis (473.9) (J32.9) Orders Chronic allergic rhinitis Start: Fluticasone Propionate 50 MCG/ACT Nasal Suspension; 1 spray in each nostril twice daily as needed for post-nasal drip Sinusitis Start: Amoxicillin-Pot Clavulanate 875-125 MG Oral Tablet; TAKE 1 TABLET EVERY 12 HOURS DAILY Provider Impressions Sinuitis: Will prescribe Augmentin for 7 days, instructed to try Flonase nasal spray 1-2 times daily if symptoms persist or worsen or he develops fever. start antibiotic. Allergic Rhinitis: Prescribed Flonase nasal spray 1-2 times daily return if symptoms persist or worsen Chief Complaint sinus pressure drainage cough History of Present Illness Travis is a 62 yo male here today with complaints of sinus congestion, sinus pressure and cough. He reports he wears CPAP was unable to sleep last evening due to nasal congestion. Symptoms started worsening yesterday, has had a cough off/on for about 3 weeks. denies fever, sore throat, CP, or SOB is not taking any allergy or OTC medications. He is concerned because he had his Pituitary removed and is under increased stress this week due to his 's father early this AM after acute illness has been under increased stress today, BP is elevated here in the office today, is usually in normal range. Review of Systems Constitutional: feeling poorly, but no chills, not feeling tired, no fever and no night sweats. Eyes: no blurred vision and no eyesight problems. ENT: nasal passage blockage, nasal congestion, postnasal drip and sinus pressure, but no earache, no discharge from the ear(s), the ears do not feel full and no sore throat. Neck: no mass(es) and no swelling. Cardiovascular: no chest pain, no intermittent leg claudication, no lower extremity edema, no palpitations and no syncope. Respiratory: cough, but as noted in HPI, no shortness of breath during exertion, no shortness of breath at rest and no wheezing. Gastrointestinal: no abdominal pain, no blood in stools, no constipation, no diarrhea, no melena, no nausea, no rectal pain and no vomiting. Genitourinary: no dysuria, no change in urinary frequency, no urinary hesitancy and no feelings of urinary urgency. Musculoskeletal: no arthralgias, no back pain and no myalgias. Integumentary: no new skin lesions and no rashes. Neurological: no difficulty walking, no headache, no limb weakness, no numbness and no tingling. 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) HTN (hypertension) (401.9) (I10) Low back pain of thoracolumbar region with sciatica (724.4,724.3) (M54.40) Low testosterone (790.99) (R79.89) Medication management (V58.69) (Z79.899) Morbid obesity with BMI of 40.0-44.9, adult (278.01,V85.41) (E66.01,Z68.41) Nausea and vomiting (787.01) (R11.2) Polyarthralgia (719.49) (M25.50) Screening for prostate cancer (V76.44) (Z12.5) Secondary hypothyroidism (244.8) (E03.8) Sleep apnea (780.57) (G47.30) Vitamin D deficiency (268.9) (E55.9) Past Medical History History of COVID-19 virus infection (079.89) (U07.1) Resolved Date: 14 Sep 2021 History of cough Resolved Date: 31 Aug 2020 History of Impacted cerumen of left ear (380.4) (H61.22) Resolved Date: 14 Sep 2021 History of Laryngotracheobronchitis (490) (J40) Resolved Date: 31 Aug 2020 History of Stage 3a chronic kidney disease (585.3) (N18.31) Resolved Date: 14 Sep 2021 History of Thoracic back pain (724.1) (M54.6) Resolved Date: 14 Sep 2021 Surgical History History of Cholecystectomy History of Colonoscopy History of Pituitary surgery tumor removal History of Sinus surgery Family History Family history of cerebrovascular accident (CVA) (V17.1) (Z82.3) Family history of dementia (V17.2) (Z81.8) Family history of acute myocardial infarction (V17.3) (Z82.49) Family history of diabetes mellitus (V18.0) (Z83.3) Family history of deep venous thrombosis (V17.49) (Z82.49) Family history of factor V Leiden mutation (V18.3) (Z83.2) Social History Does not have living will Never a smoker No recent foreign travel Allergies Bactrim Recorded By: Pema oLw; 07/17/2019 10:16:15 AM Additional reactions - O/E - fever; Generalized headache Current Meds Medication NameInstructionReason Rosuvastatin Calcium 10 MG Oral TabletTAKE 1 TABLET AT BEDTIME.Familial hyperlipidemia Esomeprazole Magnesium 40 MG Oral Capsule Delayed ReleaseTAKE 1 CAPSULE ONCE DAILY.GERD (gastroesophageal reflux disease) Aspirin 81 81 MG TBECTAKE 1 TABLET DAILY.Health Maintenance Vitamin D (Cholecalciferol) 25 MCG (1000 UT) Oral TabletTAKE 1 TABLET DAILY.Health Maintenance [place] (more content not included)... Normal [email or web address] Tobacco Screening.on 022 Tobacco use status HS b) No -[facility] Work Phone: Office Visiton 03-21-2022 Follow-up visit Diagnoses/Problems Encounter for immunization (V03.89) (Z23) Morbid obesity with BMI of 40.0-44.9, adult (278.01,V85.41) (E66.01,Z68.41) Chronic allergic rhinitis (477.9) (J30.9) Screening for prostate cancer (V76.44) (Z12.5) Secondary hypothyroidism (244.8) (E03.8) Sleep apnea (780.57) (G47.30) Vitamin D deficiency (268.9) (E55.9) Low testosterone (790.99) (R79.89) Low back pain of thoracolumbar region with sciatica (724.4,724.3) (M54.40) HTN (hypertension) (401.9) (I10) GERD (gastroesophageal reflux disease) (530.81) (K21.9) Frequent headaches (784.0) (R51.9) Familial hyperlipidemia (272.4) (E78.49) Colon polyp (211.3) (K63.5) Medication management (V58.69) (Z79.899) Orders Encounter for immunization Administer: Fluzone Quadrivalent 0.5 ML Intramuscular Suspension; INJECT 0.05 ML Intramuscular; To Be Done: 21Mar2022 Familial hyperlipidemia Renew: Rosuvastatin Calcium 10 MG Oral Tablet; TAKE 1 TABLET AT BEDTIME GERD (gastroesophageal reflux disease) Renew: Esomeprazole Magnesium 40 MG Oral Capsule Delayed Release; TAKE 1 CAPSULE ONCE DAILY HTN (hypertension) Renew: Metoprolol Tartrate 25 MG Oral Tablet; TAKE 0.5 TABLET Twice daily Medication management Follow-up visit in 6 months Outpatient Follow-up Status: Hold For - Scheduling Requested for: 21Mar2022 Screening for prostate cancer Prostate Spec.Ag, Screen; Status:Active; Requested for:19Sep2022; Vitamin D deficiency Vitamin D 25-Hydroxy; Status:Active; Requested for:19Sep2022; Chief Complaint medck History of Present IllnessHaving some less headaches this time and no worse loss of memory in the 6 months The LOPEZ is all over. Can wake at hs. His associate financial planner did an MRI and no abnormality seen. No focal numbness or weakness. No DV or MAGNOLIA. Saw eye doctor but nothing noted. Tylenol takes edge off. Naprosyn before bed helps some. Photophobia not an issue unless first in AM. No nausea. Now more on occasion. No particular reason. Back pain of thoracolumbar region - has been minimal now that back on growth hormone. Chronic rhinitis - have been doing OK after Kenalog shot in November. No regular meds. OTC meds prn. Had sinusitis in December CKD III GFR back to normal at 79 in August. Creatinine up to 1.08. No blood. No NSAIDS. No new meds. Some increase in protein Colon polyps - 2020 on March 27. But last was hyperplastic in 2017. This one clear so 5 years Essential familial hyperlipidemia - Med works well without side effects. CMP WNL at [facility] last time and lipids good this time except TG of 264. So will watch carbs . Extreme obesity - BMI 43 Has stopped pop. Active. Weight is down 7 as back on Growth Hormone and more active. Fatigue - much better when on GH. But not sleeping well and will see sleep med later this month. GERD (gastroesophageal reflux disease) - on PPI every 3 days and when he takes extra cortisone. No HB, Melena, dysphagia, or hematochezia. History of benign pituitary tumor - Dr Sheffield manages. Good labs last time. Annual HTN - Hypertension - No Chest pain, Dyspnea, palpitations, numbness, weakness, edema, claudications, or double vision/ loss of vision. Low testosterone - on supplement and good level 441 last time. Polyarthralgia - much better but still has achy days especially when off of GH. Off of gabapentin Secondary hypothyroidism - on supplement and good level of Free T4 and free T3. Sleep apnea - CPAP and works well Vitamin D deficiency supplement at [facility] Good level last time. OTC Vitamin D. PSA 02/16/21 0.7 Colonoscopy 03/27/20 due in 2024. 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) HTN (hypertension) (401.9) (I10) Low back pain of thoracolumbar region with sciatica (724.4,724.3) (M54.40) Low testosterone (790.99) (R79.89) Medication management (V58.69) (Z79.899) Morbid obesity with BMI of 40.0-44.9, adult (278.01,V85.41) (E66.01,Z68.41) Nausea and vomiting (787.01) (R11.2) Polyarthralgia (719.49) (M25.50) Screening for prostate cancer (V76.44) (Z12.5) Secondary hypothyroidism (244.8) (E03.8) Sleep apnea (780.57) (G47.30) Vitamin D deficiency (268.9) (E55.9) Past Medical History History of COVID-19 virus infection (079.89) (U07.1) Resolved Date: 14 Sep 2021 History of cough Resolved Date: 31 Aug 2020 History of Impacted cerumen of left ear (380.4) (H61.22) Resolved Date: 14 Sep 2021 History of Laryngotracheobronchitis (490) (J40) Resolved Date: 31 Aug 2020 History of Stage 3a chronic kidney disease (585.3) (N18.31) Resolved Date: 14 Sep 2021 History of Thoracic back pain (724.1) (M54.6) Resolved Date: 14 Sep 2021 Surgical History History of Cholecystectomy History of Colonoscopy History of Pituit (more content not included)... Normal [employer] Tobacco Screening.on 022 Fall risk assessment a) No falls within the last year [facility] Work Phone: Tobacco use status CPHS b) No [facility] Work Phone: Lipid Panelon 03-18-2022 Cholesterol [Mass/Vol] 129 mg/dL 0 - 199 [facility] Work Phone: Comment on above: . AGE DESIRABLE BORD JOSE HIGH HIGH 0-19 Y 0 - 169 170 - 199 >/= 200 20-24 Y 0 - 189 190 - 224 >/= 225 >24 Y 0 - 199 200 - 239 >/= 240 All ranges are based on fasting samples. Specific therapeutic targets will vary based on patient-specific cardiac risk.. Pediatric guidelines reference:Pediatrics 2011, 128(S5). Adult guidelines reference: NCEP ATPIII Guidelines, GLORY 2001, 258:2486-97. Venipuncture immediately after or during the administration of Metamizole may lead to falsely low results. Testing should be performed immediately prior to Metamizole dosing. Cholesterol in HDL [Mass/Vol] 34.0 mg/dL Abnormal [facility] Work Phone: Comment on above: . AGE VERY LOW LOW N ORMAL HIGH 0-19 Y < 35 < 40 40-45 ---- 20- 24 Y ---- < 40 >45 ---- >24 Y ---- < 40 40-60 >60. Cholesterol in LDL [Mass/Vol] 42 mg/dL 0 - 99 [facility] Work Phone: Comment on above: . NEAR BORD AGE CANDIDO RABLE OPTIMAL HIGH HIGH VERY HIGH 0-19 Y 0 - 109 --- 110-129 >/= 130 ---- 20-24 Y 0 - 119 --- 120-159 >/= 160 ---- >24 Y 0 - 99 100-129 130-159 160-189 >/=190. Cholesterol non HDL [Mass/Vol] 95 mg/dL [facility] Work Phone: Comment on above: AGE DESIRABLE BORDER LINE HIGH HIGH VERY HIGH 0-19 Y 0 - 119 120 - 144 >/= 145 >/= 160 20-24 Y 0 - 149 150 - 189 >/= 190 ---- >24 Y 30 MG/DL ABOVE LDL CHOLESTEROL GOAL. Cholesterol.total /Cholesterol in HDL [Mass ratio] 3.8 {ratio} [facility] Phone: Comment on above: REF VALUESDESIRABLE < 3.4HIGH RISK > 5.0 Triglyceride [Mass/Vol] 264 mg/dL above high threshold 0 - 149 [facility] [employer] Phone: Comment on above: . AGE DESIRABLE BORD JOSE HIGH HIGH VERY HIGH 0 D-90 D 19 - 174 ---- ---- ----91 D- 9 Y 0 - 74 75 - 99 >/= 100 ---- 10-19 Y 0 - 89 90 - 129 >/= 130 ---- 20-24 Y 0 - 114 115 - 149 >/= 150 ---- >24 Y 0 - 149 150 - 199 200- 499 >/= 500. Venipuncture immediately after or during the administration of Metamizole may lead to falsely low results. Testing should be performed immediately prior to Metamizole dosing. Lipid Panel 53 mg/dL above high threshold 0 - 40 [facility] Work Phone: Office Visiton 12-25-2021 Follow-up visit Diagnoses/Problems Acute recurrent maxillary sinusitis (461.0) (J01.01) Orders Acute recurrent maxillary sinusitis Start: Azithromycin 250 MG Oral Tablet; TAKE 2 TABLETS ON DAY 1 THEN TAKE 1 TABLET A DAY FOR 4 DAYS Start: guaiFENesin AC 100-10 MG/5ML Oral Syrup; TAKE 5 - 10 ML EVERY 4 TO 6 HOURS NEEDED FOR COUGH Chief Complaint URI History of Present IllnessSN, RN, ST, PND, cough that is not productive No fever or chills or Headache Sinus pain No Dyspnea or achiness Tired due to not sleeping. Active Problems Body mass index (BMI) of 40.0 to 44.9 in adult (V85.41) (Z68.41) Chronic allergic rhinitis (477.9) (J30.9) Colon polyp (211.3) (K63.5) Encounter for immunization (V03.89) (Z23) Familial hyperlipidemia (272.4) (E78.49) Frequent headaches (784.0) (R51.9) GERD (gastroesophageal reflux disease) (530.81) (K21.9) History of benign pituitary tumor (V12.29) (Z86.018) HTN (hypertension) (401.9) (I10) Low back pain of thoracolumbar region with sciatica (724.4,724.3) (M54.40) Low testosterone (790.99) (R79.89) Medication management (V58.69) (Z79.899) Morbid obesity with BMI of 40.0-44.9, adult (278.01,V85.41) (E66.01,Z68.41) Nausea and vomiting (787.01) (R11.2) Polyarthralgia (719.49) (M25.50) Screening for prostate cancer (V76.44) (Z12.5) Secondary hypothyroidism (244.8) (E03.8) Sleep apnea (780.57) (G47.30) Vitamin D deficiency (268.9) (E55.9) Past Medical History History of COVID-19 virus infection (079.89) (U07.1) Resolved Date: 14 Sep 2021 History of cough Resolved Date: 31 Aug 2020 History of Impacted cerumen of left ear (380.4) (H61.22) Resolved Date: 14 Sep 2021 History of Laryngotracheobronchitis (490) (J40) Resolved Date: 31 Aug 2020 History of Stage 3a chronic kidney disease (585.3) (N18.31) Resolved Date: 14 Sep 2021 History of Thoracic back pain (724.1) (M54.6) Resolved Date: 14 Sep 2021 Surgical History History of Cholecystectomy History of Colonoscopy History of Pituitary surgery tumor removal History of Sinus surgery Social History Does not have living will Never a smoker No recent foreign travel Allergies Bactrim Recorded By: Pema Low; 07/17/2019 10:16:15 AM Additional reactions - O/E - fever; Generalized headache Current Meds Medication NameInstruction Aspirin 81 81 MG TBECTAKE 1 TABLET DAILY. Esomeprazole Magnesium 40 MG Oral Capsule Delayed ReleaseTAKE 1 CAPSULE ONCE DAILY. Humatrope 12 MG SOLRINJECT 0.4 MG Daily Hydrocortisone 5 MG Oral Tablet2.5 tabs qam, 1 qnoon, 1 q evening Levothyroxine Sodium 200 MCG Oral TabletTAKE 1 TABLET DAILY. Lidoderm 5 % External Patch (Lidocaine)APPLY 1 PATCH TO THE AFFECTED AREA AND LEAVE IN PLACE FOR 12 HOURS, THEN REMOVE AND LEAVE OFF FOR 12 HOURS. Metoprolol Tartrate 25 MG Oral TabletTAKE 0.5 TABLET Twice daily Ondansetron 8 MG Oral Tablet DisintegratingTAke one tablet up to three times a day as needed. Rosuvastatin Calcium 10 MG Oral TabletTAKE 1 TABLET AT BEDTIME. Testosterone 20.25 MG/ACT (1.62%) Transdermal GelAPPLY TWO PUMP PRESSES ONE TIME DAILY DIRECTED Vitamin D (Cholecalciferol) 25 MCG (1000 UT) Oral TabletTAKE 1 TABLET DAILY. Vitals Vital Signs Recorded: [id number] 11:32AM Gsiiqhyusdn63.7 F, Oral Heart Rate72 Ffsyegyo734 Zkiaugdup19 Height5 ft 9.25 in Oxgojb877 lb BMI Wbyzpdrdpr16.1 kg/m2 BSA Calculated2.44 Tobacco Useb) No Physical Exam Physical Examination General: Alert and oriented, No acute distress. Eye: Normal conjunctiva. HENT: Tympanic membranes are clear, Normal hearing, Oral mucosa is moist. Nose: Both nostrils, Within normal limits. Sinus: Bilateral, No Frontal sinus or Maxillary sinus tenderness except by bridge of nose . Throat: Pharynx (Not erythematous, No exudate ). Neck: No lymphadenopathy Respiratory: Lungs are clear to auscultation, Respirations are non-labored, Breath sounds are equal, Symmetrical chest wall expansion. Cardiovascular: Normal rate, Regular rhythm, No murmur Integumentary: Warm, Dry, [place]. Psychiatric: Cooperative, Appropriate mood AND affect, Normal judgment. Behavior: No pressured speech. Judgment: Able to make sensible decisions. Thought process: Appropriate Signatures Electronically signed by : Althea Yang MD; Dec 25 2021 11:53AM EST (Author) Normal [email or web address] Tobacco Screening.on 022 Tobacco use status CPHS b) No [facility] Work Phone: Laboratory - Hematology and Cell countson 10-17-2021 Hematocrit (Bld) [Volume fraction] 44.4 % See Below [facility] Work Phone: Comment on above: Reference Range: 41. 0 - 52.0 Hemoglobin (Bld) [Mass/Vol] 15.0 g/dL See Below [facility] Work Phone: Comment on above: Reference Range: 13. 5 - 17.5 Office Visit ([facility] e)on 10-17-2021 Follow-up visit Diagnoses/Problems Nausea and vomiting (787.01) (R11.2) Orders Nausea and vomiting Start: Ondansetron 8 MG Oral Tablet Disintegrating; TAke one tablet up to three times a day as needed Hemoglobin + Hematocrit; Status:Active; Requested for:17Oct2021; Chief Complaint pt. c/o nausea and diarrhea on Fri, vomiting black on Sat. now dry heaves, has not been able to eat or drink x5 days. An interactive audio and video telecommunication system which permits real time communications between the patient (at the originating site) and provider (at the distant site) was utilized to provide this telehealth service. Verbal consent was requested and obtained from TRAVIS BARNEY on this date, 10/17/2021 10:20 AM , for a telehealth visit. History of Present Illness Patient is here for evaluation of GI symptoms. Patient reports that about 5 to 6 days ago he started to have nausea and vomiting after going for dinner. Since then he has been having multiple vomiting episodes. About 4 days ago he had one episode where his vomitus was nothing black. However since then his vomitus was looking normal. His vomiting has improved in the last couple of days however he continues to have dry heaving. He has medications which she is not able to take due to dry heaving. Requesting for medication to help with nausea. His diarrhea has completely resolved now. Denies any fever. Plan: Prescribing Zofran. Checking hemoglobin hematocrit to check for any blood loss given the vomitus. Follow-up as needed. Recommended to seek immediate medical attention if acute worsening of symptoms Review of Systems ROS negative except discussed above in HPI. Active Problems Body mass index (BMI) of 40.0 to 44.9 in adult (V85.41) (Z68.41) Chronic allergic rhinitis (477.9) (J30.9) Colon polyp (211.3) (K63.5) Encounter for immunization (V03.89) (Z23) Familial hyperlipidemia (272.4) (E78.49) Frequent headaches (784.0) (R51.9) GERD (gastroesophageal reflux disease) (530.81) (K21.9) History of benign pituitary tumor (V12.29) (Z86.018) HTN (hypertension) (401.9) (I10) Low back pain of thoracolumbar region with sciatica (724.4,724.3) (M54.40) Low testosterone (790.99) (R79.89) Medication management (V58.69) (Z79.899) Morbid obesity with BMI of 40.0-44.9, adult (278.01,V85.41) (E66.01,Z68.41) Polyarthralgia (719.49) (M25.50) Screening for prostate cancer (V76.44) (Z12.5) Secondary hypothyroidism (244.8) (E03.8) Sleep apnea (780.57) (G47.30) Vitamin D deficiency (268.9) (E55.9) Past Medical History History of COVID-19 virus infection (079.89) (U07.1) Resolved Date: 14 Sep 2021 History of cough Resolved Date: 31 Aug 2020 History of Impacted cerumen of left ear (380.4) (H61.22) Resolved Date: 14 Sep 2021 History of Laryngotracheobronchitis (490) (J40) Resolved Date: 31 Aug 2020 History of Stage 3a chronic kidney disease (585.3) (N18.31) Resolved Date: 14 Sep 2021 History of Thoracic back pain (724.1) (M54.6) Resolved Date: 14 Sep 2021 Surgical History History of Cholecystectomy History of Colonoscopy History of Pituitary surgery tumor removal History of Sinus surgery Family History Family history of cerebrovascular accident (CVA) (V17.1) (Z82.3) Family history of dementia (V17.2) (Z81.8) Family history of acute myocardial infarction (V17.3) (Z82.49) Family history of diabetes mellitus (V18.0) (Z83.3) Family history of deep venous thrombosis (V17.49) (Z82.49) Family history of factor V Leiden mutation (V18.3) (Z83.2) Social History Does not have living will Never a smoker No recent foreign travel Allergies Bactrim Recorded By: Peam Low; 07/17/2019 10:16:15 AM Additional reactions - O/E - fever; Generalized headache Current Meds Medication NameInstructionReason Rosuvastatin Calcium 10 MG Oral TabletTAKE 1 TABLET AT BEDTIME.Familial hyperlipidemia Esomeprazole Magnesium 40 MG Oral Capsule Delayed ReleaseTAKE 1 CAPSULE ONCE DAILY.GERD (gastroesophageal reflux disease) Aspirin 81 81 MG TBECTAKE 1 TABLET DAILY.Health Maintenance Vitamin D (Cholecalciferol) 25 MCG (1000 UT) Oral TabletTAKE 1 TABLET DAILY.Health Maintenance Hydrocortisone 5 MG Oral Tablet2.5 tabs qam, 1 qnoon, 1 q eveningHistory of benign pituitary tumor Metoprolol Tartrate 25 MG Oral TabletTAKE 0.5 TABLET Twice dailyHTN (hypertension) Humatrope 12 MG SOLRINJECT 0.4 MG DailyLow testosterone Testosterone 20.25 MG/ACT (1.62%) Transdermal GelAPPLY TWO PUMP PRESSES ONE TIME DAILY DIRECTEDLow testosterone Lidoderm 5 % External PatchAPPLY 1 PATCH TO THE AFFECTED AREA AND LEAVE IN PLACE FOR 12 HOURS, THEN REMOVE AND LEAVE OFF FOR 12 HOURS.PMH: Thoracic back pain Levothyroxine Sodium 200 MCG Oral TabletTAKE 1 TABLET DAILY.Secondary hypothyroidism Physical Exam Unable to perform examination due to nature of the visit 'Scores and Scales' Signatures Electronically signed by : Daniel Koch MD MPH; Oct 17 2021 10:51AM EST (Author) Normal [facility] Office Visiton 09-14-2021 Follow-up visit Diagnoses/Problems Familial hyperlipidemia (272.4) (E78.49) History of COVID-19 virus infection (079.89) (U07.1) History of Stage 3a chronic kidney disease (585.3) (N18.31) History of benign pituitary tumor (V12.29) (Z86.018) HTN (hypertension) (401.9) (I10) Frequent headaches (784.0) (R51.9) Medication management (V58.69) (Z79.899) Chronic allergic rhinitis (477.9) (J30.9) Colon polyp (211.3) (K63.5) GERD (gastroesophageal reflux disease) (530.81) (K21.9) Low testosterone (790.99) (R79.89) Morbid obesity with BMI of 40.0-44.9, adult (278.01,V85.41) (E66.01,Z68.41) Polyarthralgia (719.49) (M25.50) Sleep apnea (780.57) (G47.30) Vitamin D deficiency (268.9) (E55.9) Secondary hypothyroidism (244.8) (E03.8) Low back pain of thoracolumbar region with sciatica (724.4,724.3) (M54.40) Orders Familial hyperlipidemia Lipid Panel; Status:Active; Requested for:14Sep2021; Medication management Follow-up visit in 6 months Outpatient Follow-up Status: Hold For - Scheduling Requested for: 14Sep2021 PMH: Stage 3a chronic kidney disease CHRONIC KIDNEY DISEASE (CKD) - ALINA; Status:Discontinued; Patient Discussion/Summary Lamisil to the rash in the groin. Chief Complaint medck History of Present IllnessHaving some less headaches this time and no worse loss of memory in the 6 months All over. Can wake at hs. His associate financial planner did an MRI and no abnormality seen. No focal numbness or weakness. No DV or MAGNOLIA. Saw eye doctor but nothing noted. Tylenol takes edge off. Naprosyn before bed helps some. Photophobia not an issue unless first in AM. No nausea. Now more on occasion. No particular reason. Back pain of thoracolumbar region - has been minimal now that back on growth hormone. Chronic rhinitis - have been doing OK after Kenalog shot in November. Will call. No regular meds. OTC meds prn CKD III GFR back to normal at 79 this time. Creatinine up to 1.08 this time. No blood. No NSAIDS. No new meds. Some increase in protein Colon polyps - 2020 on March 27. But last was hyperplastic in 2017. This one clear so 5 years Essential familial hyperlipidemia - Med works well without side effects. CMP WNL at [facility] this time and lipids good last time. Extreme obesity - BMI 44. Has stopped pop. Active. Weight is up 14 with pancakes and not on growth hormone Fatigue - much better when on GH. GERD (gastroesophageal reflux disease) - on PPI every 3 days and when he takes extra cortisone. No HB, Melena, dysphagia, or hematochezia. History of benign pituitary tumor - Dr Sheffield manages. Good labs this time. Annual HTN - Hypertension - No Chest pain, Dyspnea, palpitations, numbness, weakness, edema, claudications, or double vision/ loss of vision. Low testosterone - on supplement and good level 441 Polyarthralgia - much better but still has achy days especially when off of GH. Off of gabapentin Secondary hypothyroidism - on supplement and good level of Free T4 and free T3. Sleep apnea - CPAP and works well Vitamin D deficiency supplement at Noelle Good level this time. OTC Vitamin D. Sore in right inguinal area. 2 days. No drainage. PSA 02/16/21 0.7 Colonoscopy 03/27/20 due in 2024. Active Problems Body mass index (BMI) of 40.0 to 44.9 in adult (V85.41) (Z68.41) Chronic allergic rhinitis (477.9) (J30.9) Colon polyp (211.3) (K63.5) Encounter for immunization (V03.89) (Z23) Familial hyperlipidemia (272.4) (E78.49) Frequent headaches (784.0) (R51.9) GERD (gastroesophageal reflux disease) (530.81) (K21.9) History of benign pituitary tumor (V12.29) (Z86.018) HTN (hypertension) (401.9) (I10) Low back pain of thoracolumbar region with sciatica (724.4,724.3) (M54.40) Low testosterone (790.99) (R79.89) Medication management (V58.69) (Z79.899) Polyarthralgia (719.49) (M25.50) Screening for prostate cancer (V76.44) (Z12.5) Secondary hypothyroidism (244.8) (E03.8) Sleep apnea (780.57) (G47.30) Vitamin D deficiency (268.9) (E55.9) Past Medical History History of COVID-19 virus infection (079.89) (U07.1) Resolved Date: 14 Sep 2021 History of cough Resolved Date: 31 Aug 2020 History of Impacted cerumen of left ear (380.4) (H61.22) History of Laryngotracheobronchitis (490) (J40) Resolved Date: 31 Aug 2020 History of Stage 3a chronic kidney disease (585.3) (N18.31) Resolved Date: 14 Sep 2021 History of Thoracic back pain (724.1) (M54.6) Surgical History History of Cholecystectomy History of Colonoscopy History of Pituitary surgery tumor removal History of Sinus surgery Social History Does not have living will Never a smoker No recent foreign travel Allergies Bactrim Recorded By: Pema Low; 07/17/2019 10:16:15 AM Additional reactions - O/E - fever; Generalized headache Current Meds Medication NameInstruction Aspirin 81 81 MG TBECTAKE 1 TABLET DAILY. Esomeprazole Magnesium 40 MG Oral Capsule Delayed ReleaseTAKE 1 CAPSULE ONCE DAILY. Humatrope 12 MG Injection Solution Recon (more content not included)... Normal [employer] Tobacco Screening.on Adult depression screening assessment [facility] Tobacco use status [facility] b) No [facility]: Tobacco Screening.on 022 Tobacco use status [facility] b) No [facility] Work Phone: Radiologyon 03-16-2021 US Kidney - bilateral Normal [facility] Work Phone: Tobacco Screening.on 021 Tobacco use status [facility] b) No [facility] Work Phone: Lipid Profileon 01-14-2019 Cholesterol [Mass/Vol] 113 mg/dL Normal 0-199 [facility] Comment on above: Performed By: #### 3 [id number] #### LILLIAM [employer] [facility] [place] [address] Cholesterol in HDL [Mass/Vol] 30 mg/dL Low 40-60 [facility] Comment on above: Performed By: #### 3 [id number] #### LILLIAM [employer] [address] [place] [address] Cholesterol in LDL [Mass/Vol] 51 mg/dL Normal 0-130 [facility] Comment on above: Performed By: #### 3 [id number] #### LILLIAM [employer] [facility] [place] [address] Cholesterol in VLDL [Mass/Vol] 32 mg/dL Normal 0-40 [facility] Comment on above: Performed By: #### 3 [id number] #### LILLIAM [employer] [address] [place] [address] Triglyceride [Mass/Vol] 161 mg/dL High 0-149 [facility] Comment on above: Result Comment: AGE DESIRABLE BORDERLINE HIGH 91 D - 9 Y 0 - 74 75 - 99 > 100 10 - 19 Y 0 - 89 90 - 129 > 130 20 - 24 Y 0 - 114 115 - 149 > 150 > 25 0 - 149 150 - 199 200 - 499 Performed By: #### 3 [id number] #### LILLIAM [employer] [address] [place] [address] .Manual Abson 09-07-2018 Basophil Abs Man 0.0 10x3/ Normal 0.0-0.2 [facility] Comment on above: Order Comment: Order added by Discern Expert. Performed By: #### 3 [id number] #### LILLIAM Rem[facility] [address] [place] [address] Eos Abs Man 0.2 10x3/ Normal 0.0-0.5 [facility] Comment on above: Order Comment: Order added by Discern Expert. Performed By: #### 3 [id number] #### LILLIAM LucioHemo [address] [place] [address] Lymph Abs Man 2.4 10x3/ Normal 1.2-3.4 [facility] Comment on above: Order Comment: Order added by Discern Expert. Performed By: #### 3 [id number] #### LILLIAM LucioHemo [address] [place] [id number] Carter Abs Man 0.4 10x3/ Normal 0.0-0.7 [facility] Comment on above: Order Comment: Order added by Discern Expert. Performed By: #### 3 [id number] #### LILLIAM Rayo [address] [place] [id number] Segs Abs Man 4.3 10x3/ Normal 1.4-6.5 [facility] Comment on above: Order Comment: Order added by Discern Expert. Performed By: #### 3 [id number] #### LILLIAM LucioHemo [address] [place], [place] [id number] CBC w/ Manual Diffon 019 Erythrocyte distribution width (RBC) [Ratio] 13.1 % Normal 11.5-14.5 [facility] Comment on above: Performed By: #### 2 [id number] #### LILLIAM Rayo [facility] [place] [id number] Hematocrit (Bld) [Volume fraction] 49.2 % Normal 42.0-52.0 [facility] Comment on above: Performed By: #### 2 [id number] #### LILLIAM LucioHemo [facility] [place] [id number] Hemoglobin (Bld) [Mass/Vol] 16.4 G/DL Normal 13.5-18.0 [facility] Comment on above: Performed By: #### 2 [id number] #### LILLIAM LucioHemo [facility] [place] [id number] MCH (RBC) [Entitic mass] 28.3 pg Normal 27.0-31.0 [facility] Comment on above: Performed By: #### 2 [id number] #### LILLIAM RemHemo [address] [place] [address] MCHC (RBC) [Mass/Vol] 33.3 G/DL Normal 33.0-37.0 [facility] Comment on above: Performed By: #### 2 [id number] #### LILLIAM Rem[facility]emo [address] [place] [address] MCV (RBC) [Entitic vol] 85.0 fL Normal 78.0-100.0 [facility] Comment on above: Performed By: #### 2 [id number] #### LILLIAM RemHemo [address] [place] [address] Platelet mean volume (Bld) [Entitic vol] 9.0 fL Normal 7.4-11.0 [facility] Comment on above: Performed By: #### 2 [id number] #### LILLIAM LucioHemo [address] [place] [address] Platelets (Bld) [#/Vol] 178 E3/mcL Normal 130-400 [facility] Comment on above: Performed By: #### 2 [id number] #### LILLIAM LucioHemo [facility] [place] [address] RBC (Bld) [#/Vol] 5.78 E6/mcL Normal 3.90-6.10 [facility] Comment on above: Performed By: #### 2 [id number] #### LILLIAM LucioHemo [address] [place] [address] WBC (Bld) [#/Vol] 7.6 E3/mcL Normal 3.6-11.0 [facility] Comment on above: Performed By: #### 2 [id number] #### LILLIAM RemHemo [facility] [place] [address] Manual Diffon 09-07-2018 Basophil Man 0 % Normal 0-1 [facility] Comment on above: Order Comment: Order added by Discern Expert. Performed By: #### 2 [id number] #### LILLIAM Rem[facility]emo [address] [place] [address] Eosinophils/100 WBC (Bld) 2 % Normal 0-5 [facility] Comment on above: Order Comment: Order added by Discern Expert. Performed By: #### 2 [id number] #### LILLIAM Rem[facility]emo [address] [place] [address] Lymphocytes/100 WBC (Bld) 31 % Normal 14-48 [facility] Comment on above: Order Comment: Order added by Discern Expert. Performed By: #### 2 [id number] #### LILLIAM Rem[facility]emo [address] [place] [address] Monocyte Man 5 % Normal 1-11 [facility] Comment on above: Order Comment: Order added by Discern Expert. Performed By: #### 2 [id number] #### LILLIAM RemHemo [address] [place] [id number] RBC morphology finding Nom (Bld) NORMAL Normal [facility] Comment on above: Order Comment: Order added by Discern Expert. Performed By: #### 2 [id number] #### LILLIAM RemHemo [address] [place] [id number] React Lymph Man 5 % Normal [facility] Comment on above: Order Comment: Order added by Discern Expert. Performed By: #### 2 [id number] #### LILLIAM RemHemo [address] [place] [id number] Segs Man 57 % Normal 37-75 [facility] Comment on above: Order Comment: Order added by Discern Expert. Performed By: #### 2 [id number] #### LILLIAM RemHemo [facility] [place] [id number] Sed Rate Automatedon 019 Sed Rate Automated 12 mm/hr Normal [facility] Comment on above: Result Comment: AGE- SPECIFIC REFERENCE RANGES FOR SEDIMENTATION RATE AUTOMATED REFERENCE RANGE - MM/HR AGE MEN WOMEN 0-2 0-2 - PUBERTY 3-13 3-13 PUBERTY - 50 YRS 0-15 0-20 > 50 YRS 0-20 0-30 Performed By: #### 1 [id number] #### LILLIAM Hematology Manual Subsection [facility] [place] [id number] XR Spine Thoracic 3 Viewson 09-07-2018 XR Spine Thoracic 3 Views Exam Date/Time: 09/07/2018 15:16 EDT Reason for Exam: Pain, Non Traumatic Report STUDY: XR Spine Thoracic 3 Views;; 09/07/2018 3:16 pm INDICATION: Pain, Non Traumatic. COMPARISON: None. ACCESSION NUMBER(S): [id number] ORDERING CLINICIAN: Althea Yang FINDINGS: The thoracic vertebral bodies demonstrate normal height and alignment. There is mild multilevel disc space narrowing with degenerative endplate spurring. Surgical clips project over the right upper quadrant abdomen likely related to prior cholecystectomy. IMPRESSION: Mild multilevel degenerative changes. No acute fracture or subluxation. FINAL REPORT Dictated: 09/07/2018 3:58 pm John Wheatley MD Signed (Electronic Signature): 09/07/2018 3:58 pm Signed by: John Wheatley MD Technologist: HLL Normal [facility] zzplt morphon 09-07-2018 Platelet morphology finding Nom (Bld) NORMAL Normal [facility] Comment on above: Performed By: #### 9 [id number] #### LILLIAM Rem[facility]emo [address] [place] [address] Platelets (Bld) [#/Vol] NORMAL Normal [facility] Comment on above: Performed By: #### 9 [id number] #### LILLIAM RemHemo [address] [place] [address] Vital Signs Date Time Vital Sign Value Performing Clinician Facility 11-19-2024 16:19-0400 Body height 177.2 cm Victoria BHAKTASPA TECHNICIAN Work Phone: [facility] 11-19-2024 16:19-0400 Body mass index (BMI) [Ratio] 40.93 kg/m2 Victoria Alexandre APRN-SPA TECHNICIAN Work Phone: [facility] 11-19-2024 16:19-0400 Body weight 128.46 kg Victoria Alexandre APRN-SPA TECHNICIAN Work Phone: [facility] 11-19-2024 16:19-0400 Diastolic blood pressure 88 mm[Hg] Victoria Alexandre APRN-SPA TECHNICIAN Work Phone: [facility] 11-19-2024 16:19-0400 Heart rate 67 /min Victoria Alexandre APRN-SPA TECHNICIAN Work Phone: [facility] 11-19-2024 16:19-0400 SaO2% (BldA) [Mass fraction] 98 % Victoria Alexandre MARKETING AND COMMUNICATIONS OFFICER-SPA TECHNICIAN Work Phone: [facility] 11-19-2024 16:19-0400 Systolic blood pressure 128 mm[Hg] Victoria Alexandre MARKETING AND COMMUNICATIONS OFFICER-SPA TECHNICIAN Work Phone: [facility] 09-09-2024 16:31-0400 Body mass index (BMI) [Ratio] 39.74 kg/m2 Victoria Alexandre MARKETING AND COMMUNICATIONS OFFICER-SPA TECHNICIAN Work Phone: [facility] 09-09-2024 16:31-0400 Body weight 124.74 kg Victoria Alexandre MARKETING AND COMMUNICATIONS OFFICER-SPA TECHNICIAN Work Phone: [facility] 09-09-2024 16:31-0400 Diastolic blood pressure 82 mm[Hg] Victoria Alexandre MARKETING AND COMMUNICATIONS OFFICER-SPA TECHNICIAN Work Phone: [facility] 09-09-2024 16:31-0400 Heart rate 71 /min Victoria Alexandre MARKETING AND COMMUNICATIONS OFFICER-SPA TECHNICIAN Work Phone: [facility] 09-09-2024 16:31-0400 SaO2% (BldA) [Mass fraction] 97 % Victoria Alexandre MARKETING AND COMMUNICATIONS OFFICER-SPA TECHNICIAN Work Phone: [facility] 09-09-2024 16:31-0400 Systolic blood pressure 124 mm[Hg] Victoria Alexandre MARKETING AND COMMUNICATIONS OFFICER-SPA TECHNICIAN Work Phone: [facility] 08-30-2024 08:34-0400 Body height 175.3 cm Pema Maguire PA-C Work Phone: [facility] 08-30-2024 08:34-0400 Body mass index (BMI) [Ratio] 40.44 kg/m2 Pema Maguire PA-C Work Phone: [facility] 08-30-2024 08:34-0400 Body temperature 97 [degF] Pema Maguire PA-C Work Phone: [facility] 08-30-2024 08:34-0400 Body weight 124.29 kg Pema Maguire PA-C Work Phone: [facility] 08-30-2024 08:34-0400 Diastolic blood pressure 80 mm[Hg] Pema Maguire PA-C Work Phone: [facility] 08-30-2024 08:34-0400 Heart rate 77 /min Pema Maguire PA-C Work Phone: [facility] 08-30-2024 08:34-0400 Respiratory rate 16 /min Pema Maguire PA-C Work Phone: [facility] 08-30-2024 08:34-0400 SaO2% (BldA) [Mass fraction] 98 % Pema Maguire PA-C Work Phone: [facility] 08-30-2024 08:34-0400 Systolic blood pressure 136 mm[Hg] Pema Maguire PA-C Work Phone: [facility] 08-19-2024 16:29-0500 Body height 177.2 cm Victoria Alexandre MARKETING AND COMMUNICATIONS OFFICER-SPA TECHNICIAN Work Phone: [facility] 08-19-2024 16:29-0500 Body mass index (BMI) [Ratio] 39.89 kg/m2 Victoria Alexandre MARKETING AND COMMUNICATIONS OFFICER-SPA TECHNICIAN Work Phone: [facility] 08-19-2024 16:29-0500 Body weight 125.19 kg Victoria Alexandre MARKETING AND COMMUNICATIONS OFFICER-SPA TECHNICIAN Work Phone: [facility] 08-19-2024 16:29-0500 Diastolic blood pressure 78 mm[Hg] Victoria Alexandre MARKETING AND COMMUNICATIONS OFFICER-SPA TECHNICIAN Work Phone: [facility] 08-19-2024 16:29-0500 Heart rate 71 /min Victoria Alexandre MARKETING AND COMMUNICATIONS OFFICER-SPA TECHNICIAN Work Phone: [facility] 08-19-2024 16:29-0500 SaO2% (BldA) [Mass fraction] 99 % Victoria Alexandre MARKETING AND COMMUNICATIONS OFFICER-SPA TECHNICIAN Work Phone: [facility] 08-19-2024 16:29-0500 Systolic blood pressure 128 mm[Hg] Victoria Alexandre MARKETING AND COMMUNICATIONS OFFICER-SPA TECHNICIAN Work Phone: [facility] 06-22-2024 11:21-0500 Body height 177.8 cm Victoria Alexandre MARKETING AND COMMUNICATIONS OFFICER-SPA TECHNICIAN Work Phone: [facility] 06-22-2024 11:21-0500 Body mass index (BMI) [Ratio] 38.97 kg/m2 Victoria Alexandre MARKETING AND COMMUNICATIONS OFFICER-SPA TECHNICIAN Work Phone: [facility] 06-22-2024 11:21-0500 Body weight 123.2 kg Victoria Alexandre MARKETING AND COMMUNICATIONS OFFICER-SPA TECHNICIAN Work Phone: [facility] 06-22-2024 11:21-0500 Diastolic blood pressure 84 mm[Hg] Victoria Alexandre MARKETING AND COMMUNICATIONS OFFICER-SPA TECHNICIAN Work Phone: [facility] 06-22-2024 11:21-0500 Heart rate 80 /min Victoria Alexandre MARKETING AND COMMUNICATIONS OFFICER-SPA TECHNICIAN Work Phone: [facility] 06-22-2024 11:21-0500 SaO2% (BldA) [Mass fraction] 100 % Victoria Alexandre MARKETING AND COMMUNICATIONS OFFICER-SPA TECHNICIAN Work Phone: [facility] 06-22-2024 11:21-0500 Systolic blood pressure 124 mm[Hg] Victoria Alexandre MARKETING AND COMMUNICATIONS OFFICER-SPA TECHNICIAN Work Phone: [facility] 02-17-2024 16:05-0400 Body mass index (BMI) [Ratio] 38.6 kg/m2 Althea Yang MD Work Phone: [facility] 02-17-2024 16:05-0400 Body weight 122.02 kg Althea Yang MD Work Phone: [facility] 02-17-2024 16:05-0400 Diastolic blood pressure 82 mm[Hg] Althea Yang MD Work Phone: [facility] 02-17-2024 16:05-0400 Heart rate 71 /min Althea Yang MD Work Phone: [facility] 02-17-2024 16:05-0400 SaO2% (BldA) [Mass fraction] 98 % Althea Yang MD Work Phone: [facility] 02-17-2024 16:05-0400 Systolic blood pressure 126 mm[Hg] Althea Yang MD Work Phone: [facility] 12-09-2023 08:29-0400 Body height 175.3 cm Amalia Knight MARKETING AND COMMUNICATIONS OFFICER-SPA TECHNICIAN Work Phone: [facility] 12-09-2023 08:29-0400 Body mass index (BMI) [Ratio] 40.46 kg/m2 Amalia Knight MARKETING AND COMMUNICATIONS OFFICER-SPA TECHNICIAN Work Phone: [facility] 12-09-2023 08:29-0400 Body temperature 97.7 [degF] Amalia Knight MARKETING AND COMMUNICATIONS OFFICER-SPA TECHNICIAN Work Phone: [facility] 12-09-2023 08:29-0400 Body weight 124.29 kg Amalia Knight MARKETING AND COMMUNICATIONS OFFICER-SPA TECHNICIAN Work Phone: [facility] 12-09-2023 08:29-0400 Diastolic blood pressure 68 mm[Hg] Amalia Knight MARKETING AND COMMUNICATIONS OFFICER-SPA TECHNICIAN Work Phone: [facility] 12-09-2023 08:29-0400 Heart rate 86 /min Amalia Knight MARKETING AND COMMUNICATIONS OFFICER-SPA TECHNICIAN Work Phone: [facility] 12-09-2023 08:29-0400 SaO2% (BldA) [Mass fraction] 96 % Amalia Knight MARKETING AND COMMUNICATIONS OFFICER-SPA TECHNICIAN Work Phone: [facility] Comment on above: 12-09-2023 08:29-0400 Systolic blood pressure 110 mm[Hg] Amalia Knight MARKETING AND COMMUNICATIONS OFFICER-SPA TECHNICIAN Work Phone: [facility] 08-22-2023 10:44-0500 Body height 175.3 cm Leo Sheffield MD, PhD Work Phone: [facility] 08-22-2023 10:44-0500 Body mass index (BMI) [Ratio] 41.1 kg/m2 Leo Sheffield MD, PhD Work Phone: [facility] 08-22-2023 10:44-0500 Body temperature 97 [degF] Leo Sheffield MD, PhD Work Phone: [facility] 08-22-2023 10:44-0500 Body weight 126.24 kg Leo Sheffield MD, PhD Work Phone: [facility] 08-22-2023 10:44-0500 Diastolic blood pressure 83 mm[Hg] Leo Sheffield MD, PhD Work Phone: [facility] 08-22-2023 10:44-0500 Heart rate 71 /min Leo Sheffield MD, PhD Work Phone: [facility] 08-22-2023 10:44-0500 Respiratory rate 18 /min Leo Sheffield MD, PhD Work Phone: [facility] 08-22-2023 10:44-0500 SaO2% (BldA) [Mass fraction] 98 % Leo Sheffield MD, PhD Work Phone: [facility] 08-22-2023 10:44-0500 Systolic blood pressure 139 mm[Hg] Leo Sheffield MD, PhD Work Phone: [facility] 08-14-2023 15:45-0500 Body height 177.8 cm Althea Yang MD Work Phone: [facility] 08-14-2023 15:45-0500 Body mass index (BMI) [Ratio] 39.46 kg/m2 Althea Yang MD Work Phone: [facility] 08-14-2023 15:45-0500 Body weight 124.74 kg Althea Yang MD Work Phone: [facility] 08-14-2023 15:45-0500 Diastolic blood pressure 80 mm[Hg] Althea Yang MD Work Phone: [facility] 08-14-2023 15:45-0500 Heart rate 83 /min Althea Yang MD Work Phone: [facility] 08-14-2023 15:45-0500 SaO2% (BldA) [Mass fraction] 97 % Althea Yang MD Work Phone: [facility] 08-14-2023 15:45-0500 Systolic blood pressure 146 mm[Hg] Althea Yang MD Work Phone: [facility] 06-23-2023 14:15-0500 Diastolic blood pressure 73 mm[Hg] Tacos Ash DO Work Phone: [facility] 06-23-2023 14:15-0500 Heart rate 82 /min Tacos Ash DO Work Phone: [facility] 06-23-2023 14:15-0500 Respiratory rate 18 /min Tacos Ash DO Work Phone: [facility] 06-23-2023 14:15-0500 SaO2% (BldA) [Mass fraction] 95 % Tacos Ash DO Work Phone: [facility] 06-23-2023 14:15-0500 Systolic blood pressure 107 mm[Hg] Tacos Ash DO Work Phone: [facility] 06-23-2023 10:29-0500 Body height 175.3 cm Tacos Ash DO Work Phone: [facility] 06-23-2023 10:29-0500 Body mass index (BMI) [Ratio] 41.35 kg/m2 Tacos Ash DO Work Phone: [facility] 06-23-2023 10:29-0500 Body temperature 100.29 [degF] Tacos Ash DO Work Phone: [facility] 06-23-2023 10:29-0500 Body weight 127.01 kg Tacos Ash DO Work Phone: [facility] 02-10-2023 15:59-0400 Body mass index (BMI) [Ratio] 40.6 kg/m2 Althea Yang MD Work Phone: [facility] 02-10-2023 15:59-0400 Body weight 130.18 kg Althea Yang MD Work Phone: [facility] 02-10-2023 15:59-0400 Diastolic blood pressure 82 mm[Hg] Althea Yang MD Work Phone: [facility] 02-10-2023 15:59-0400 Heart rate 72 /min Althea Yang MD Work Phone: [facility] 02-10-2023 15:59-0400 SaO2% (BldA) [Mass fraction] 95 % Althea Yang MD Work Phone: [facility] 02-10-2023 15:59-0400 Systolic blood pressure 136 mm[Hg] Althea Yang MD Work Phone: [facility] 10-07-2022 16:34-0400 Body height 179.1 cm Althea Yang MD Work Phone: [facility] 10-07-2022 16:34-0400 Body mass index (BMI) [Ratio] 43.57 kg/m2 Althea Yang MD Work Phone: [facility] 10-07-2022 16:34-0400 Body weight 139.71 kg Althea Yang MD Work Phone: [facility] 10-07-2022 16:34-0400 Diastolic blood pressure 82 mm[Hg] Althea Yang MD Work Phone: [facility] 10-07-2022 16:34-0400 Heart rate 73 /min Althea Yang MD Work Phone: [facility] 10-07-2022 16:34-0400 SaO2% (BldA) [Mass fraction] 96 % Althea Yang MD Work Phone: [facility] 10-07-2022 16:34-0400 Systolic blood pressure 136 mm[Hg] Althea Yang MD Work Phone: [facility] 08-16-2022 11:46-0500 Body height 175.3 cm Leo Sheffield MD, PhD Work Phone: [facility] 08-16-2022 11:46-0500 Body mass index (BMI) [Ratio] 44.3 kg/m2 Leo Sheffield MD, PhD Work Phone: [facility] 08-16-2022 11:46-0500 Body temperature 98.29 [degF] Leo Sheffield MD, PhD Work Phone: [facility] 08-16-2022 11:46-0500 Body weight 136.08 kg Leo Sheffield MD, PhD Work Phone: [facility] 08-16-2022 11:46-0500 Diastolic blood pressure 77 mm[Hg] Leo Sheffield MD, PhD Work Phone: [facility] 08-16-2022 11:46-0500 Heart rate 86 /min Leo Sheffield MD, PhD Work Phone: [facility] 08-16-2022 11:46-0500 Respiratory rate 16 /min Leo Sheffield MD, PhD Work Phone: [facility] 08-16-2022 11:46-0500 SaO2% (BldA) [Mass fraction] 95 % Leo Sheffield MD, PhD Work Phone: [facility] 08-16-2022 11:46-0500 Systolic blood pressure 128 mm[Hg] Leo Sheffield MD, PhD Work Phone: [facility] 08-16-2022 09:48-0500 Diastolic blood pressure 77 mm[Hg] Pema Maguire PA-C Work Phone: [facility] 08-16-2022 09:48-0500 Systolic blood pressure 128 mm[Hg] Pema Maguire PA-C Work Phone: [facility] 08-16-2022 09:46-0500 Body mass index (BMI) [Ratio] 44.3 kg/m2 Pema Maguire PA-C Work Phone: [facility] 08-16-2022 09:46-0500 Body weight 136.08 kg Pema Maguire PA-C Work Phone: [facility] 08-16-2022 09:44-0500 Body height 175.3 cm Pema Maguire PA-C Work Phone: [facility] 08-02-2022 14:57-0500 Body height 175.9 cm Althea Yang Work Phone: [facility] Work Phone: 08-02-2022 14:57-0500 Body mass index (BMI) [Ratio] 44.27 kg/m2 Althea Yang Work Phone: [facility] Work Phone: 08-02-2022 14:57-0500 Body surface area Derived from formula 2.47 m2 Althea Yang Work Phone: [facility] Work Phone: 08-02-2022 14:57-0500 Body temperature 99.2 [degF] Althea O Yang Work Phone: [facility] Work Phone: 08-02-2022 14:57-0500 Body weight 136.99 kg Althea O Yang Work Phone[facility] Work Phone: 08-02-2022 14:57-0500 Diastolic blood pressure 80 mm[Hg] Althea O Yang Work Phone[facility] Work Phone: 08-02-2022 14:57-0500 Heart rate 80 /min Althea O Yang Work [facility] Work Phone: 08-02-2022 14:57-0500 Systolic blood pressure 120 mm[Hg] Althea O Yang Work Phone: [facility] Work Phone: 05-20-2022 02:48-0500 Diastolic blood pressure 78 mm[Hg] Althea Yang Other Phone: [facility] 05-20-2022 02:48-0500 Heart rate 66 /min Althea Yang Other Phone: [facility] 05-20-2022 02:48-0500 Respiratory rate 18 /min Althea Yang Other Phone: [facility] 05-20-2022 02:48-0500 SaO2% (BldA) [Mass fraction] 99 % Althea Yang Other Phone: [facility] 05-20-2022 02:48-0500 Systolic blood pressure 128 mm[Hg] Althea Yang Other Phone: [facility] 05-13-2022 15:07-0500 Body height 175.9 cm Althea O Yang Work Phone: [facility] Work Phone: 05-13-2022 15:07-0500 Body mass index (BMI) [Ratio] 44.64 kg/m2 Atlhea Alem GainesYang Work Phone: [facility] Work Phone: 05-13-2022 15:07-0500 Body surface area Derived from formula 2.48 m2 Althea O Yang Work Phone: [facility] Work Phone: 05-13-2022 15:07-0500 Body weight 138.12 kg Althea Alem GainesYang Work Phone: [facility] Work Phone: 05-13-2022 15:07-0500 Diastolic blood pressure 98 mm[Hg] Althea Alem GainesYang Work Phone: [facility] Work Phone: 05-13-2022 15:07-0500 Heart rate 77 /min Althea Alem GainesYang Work Phone: [facility] Work Phone: 05-13-2022 15:07-0500 Systolic blood pressure 142 mm[Hg] Althea Alem Ulloaer Work Phone: [facility] Work Phone: 04-03-2022 08:39-0400 Body height 175.3 cm Amalia Knight APRN-SPA TECHNICIAN Work Phone: [facility] 04-03-2022 08:39-0400 Body mass index (BMI) [Ratio] 44.15 kg/m2 Amalia Knight MARKETING AND COMMUNICATIONS OFFICER-SPA TECHNICIAN Work Phone: [facility] 04-03-2022 08:39-0400 Body temperature 96.3 [degF] Amalia Knight MARKETING AND COMMUNICATIONS OFFICER-SPA TECHNICIAN Work Phone: [facility] 04-03-2022 08:39-0400 Body weight 135.63 kg Amalia Alissa MARKETING AND COMMUNICATIONS OFFICER-SPA TECHNICIAN Work Phone: [facility] 04-03-2022 08:39-0400 Diastolic blood pressure 84 mm[Hg] Amalia Alissa MARKETING AND COMMUNICATIONS OFFICER-SPA TECHNICIAN Work Phone: [facility] 04-03-2022 08:39-0400 Heart rate 61 /min Amalia Alissa MARKETING AND COMMUNICATIONS OFFICER-SPA TECHNICIAN Work Phone: [facility] 04-03-2022 08:39-0400 SaO2% (BldA) [Mass fraction] 97 % Amalia Alissa MARKETING AND COMMUNICATIONS OFFICER-SPA TECHNICIAN Work Phone: [facility] Comment on above: RA 04-03-2022 08:39-0400 Systolic blood pressure 126 mm[Hg] Amalia Alissa MARKETING AND COMMUNICATIONS OFFICER-SPA TECHNICIAN Work Phone: [facility] 03-21-2022 16:22-0400 Body height 175.9 cm Althea Alem Ulloaer Work Phone: [facility] Work Phone: 03-21-2022 16:22-0400 Body mass index (BMI) [Ratio] 43.83 kg/m2 Althea Alem Ulloaer Work Phone: [facility] Work Phone: 03-21-2022 16:22-0400 Body surface area Derived from formula 2.46 m2 Althea Alem GainesYang Work Phone: [facility] Work Phone: 03-21-2022 16:22-0400 Body weight 135.63 kg Althea Alem Yang Work Phone: [facility] Work Phone: 03-21-2022 16:22-0400 Diastolic blood pressure 82 mm[Hg] Althea Alem Yang Work Phone: [facility] Work Phone: 03-21-2022 16:22-0400 Heart rate 64 /min Althea O Yang Work Phone: [facility] Work Phone: 03-21-2022 16:22-0400 Systolic blood pressure 134 mm[Hg] Althea O Yang Work Phone: [facility] Work Phone: 12-25-2021 11:32-0400 Body height 175.9 cm Althea O Yang Work Phone: [facility] Work Phone: 12-25-2021 11:32-0400 Body mass index (BMI) [Ratio] 43.1 kg/m2 Althea O Yang Work Phone: [facility] Work Phone: 12-25-2021 11:32-0400 Body surface area Derived from formula 2.44 m2 Althea O Yang Work Phone: [facility] Work Phone: 12-25-2021 11:32-0400 Body temperature 98.7 [degF] Althea O Yang Work Phone: [facility] Work Phone: 12-25-2021 11:32-0400 Body weight 133.36 kg Althea O Yang Work Phone: [facility] Work Phone: 12-25-2021 11:32-0400 Diastolic blood pressure 80 mm[Hg] Althea O Yang Work Phone: [facility] Work Phone: 12-25-2021 11:32-0400 Heart rate 72 /min Althea O Yang Work Phone: [facility] Work Phone: 12-25-2021 11:32-0400 Systolic blood pressure 140 mm[Hg] Althea O Yang Work Phone: [facility] Work Phone: 09-14-2021 16:10-0400 Body height 175.9 cm Althea O Yang Work Phone: [facility] Work Phone: 09-14-2021 16:10-0400 Body mass index (BMI) [Ratio] 44.86 kg/m2 Althea O Yang Work Phone: [facility] Work Phone: 09-14-2021 16:10-0400 Body surface area Derived from formula 2.48 m2 Althea O Yang Work Phone: [facility] Work Phone: 09-14-2021 16:10-0400 Body weight 138.8 kg Althea O Yang Work Phone: [facility] Work Phone: 09-14-2021 16:10-0400 Diastolic blood pressure 82 mm[Hg] Althea O Yang Work Phone: [facility] Work Phone: 09-14-2021 16:10-0400 Heart rate 72 /min Althea O Yang Work Phone: [facility] Work Phone: 09-14-2021 16:10-0400 Systolic blood pressure 124 mm[Hg] Althea O Yang Work Phone: [facility] Work Phone: 03-13-2021 15:54-0400 Body height 175.26 cm Althea O Yang Work Phone: [facility] Work Phone: 03-13-2021 15:54-0400 Body mass index (BMI) [Ratio] 43.12 kg/m2 Althea Ulloaer Work Phone: [facility] Work Phone: 03-13-2021 15:54-0400 Body surface area Derived from formula 2.43 m2 Althea Ulloaer Work Phone: [facility] Work Phone: 03-13-2021 15:54-0400 Body weight 132.45 kg Althea Ulloaer Work Phone: [facility] Work Phone: 03-13-2021 15:54-0400 Diastolic blood pressure 80 mm[Hg] Althea Ulloaer Work Phone: [facility] Work Phone: 03-13-2021 15:54-0400 Heart rate 72 /min Althea Ulloaer Work Phone: [facility] Work Phone: 03-13-2021 15:54-0400 Systolic blood pressure 122 mm[Hg] Althea Ulloaer Work Phone: [facility] Work Phone: Encounters Encounter Date Encounter Type Care Provider Facility Start: 12-03-2024 End: 12-03-2024 ambulatory Facility:[facility] Start: 11-19-2024 End: 11-19-2024 Office outpatient visit 25 minutes Victoria Alexandre MARKETING AND COMMUNICATIONS OFFICER-SPA TECHNICIAN Work Phone: [facility] Comment on above: Allergy, initial enc ounter (Primary Dx); Type 2 diabetes mellitus without complication, without long-term current use of insulin Start: 11-19-2024 End: 11-19-2024 ambulatory [facility] Start: 09-09-2024 End: 09-09-2024 Office outpatient visit 15 minutes Victoria Alexandre MARKETING AND COMMUNICATIONS OFFICER-SPA TECHNICIAN Work Phone: [facility] Comment on above: Flexor tendinitis of hand (Primary Dx) Start: 09-09-2024 End: 09-09-2024 ambulatory [facility] Start: 08-30-2024 End: 08-30-2024 Office outpatient visit 40 minutes Pema Lugo Andrez PA-C Work Phone: Division of Endocrinology Comment on above: Growth hormone defic iency (human) (Primary Dx); Hypogonadotropic hypogonadism; Panhypopituitarism; Adrenal insufficiency; Vitamin D deficiency Start: 08-30-2024 ambulatory PEMA Lugo ANDREZ Facility:[facility] Start: 08-19-2024 End: 08-19-2024 Periodic preventive med est patient 40-64yrs Victoria Parish Emre MARKETING AND COMMUNICATIONS OFFICER-SPA TECHNICIAN Work Phone: [facility] Comment on above: Type 2 diabetes elroy itus without complication, without long- term current use of insulin (Multi) (Primary Dx); Familial hyperlipidemia; Primary hypertension; Gastroesophageal reflux disease without esophagitis Start: 08-19-2024 End: 08-19-2024 ambulatory [facility] Start: 06-29-2024 End: 06-29-2024 ambulatory [facility] Start: 06-29-2024 End: 06-29-2024 Office outpatient visit 15 minutes Victoria Parish Att[place] MARKETING AND COMMUNICATIONS OFFICER-SPA TECHNICIAN Work Phone: [facility] Comment on above: Abscess (Primary Dx) Start: 06-22-2024 End: 06-22-2024 Office outpatient visit 25 minutes Victoria Parish Emre MARKETING AND COMMUNICATIONS OFFICER-SPA TECHNICIAN Work Phone: [facility] Comment on above: Abscess (Primary Dx) Start: 06-22-2024 End: 06-22-2024 ambulatory [facility] Start: 06-13-2024 End: 06-13-2024 Emergency department patient visit Althea Yang Facility:[facility] Start: 02-17-2024 End: 02-17-2024 Office outpatient visit 25 minutes Althea Yang MD Work Phone: [facility] Comment on above: Chronic allergic rhi nitis (Primary Dx); Type 2 diabetes mellitus without complication, without long-term current use of insulin (Multi); Class 2 severe obesity due to excess calories with serious comorbidity and body mass index (BMI) of 39.0 to 39.9 in adult (Multi); Adenomatous polyp of colon, unspecified part of colon; Familial hyperlipidemia; Frequent headaches; Gastroesophageal reflux disease without esophagitis; Primary hypertension; Panhypopituitarism (Multi); Multiple papillomata; Low back pain of thoracolumbar region with sciatica; Low testosterone; Secondary hypothyroidism; Pituitary adenoma (Multi); Polyarthralgia; Obstructive sleep apnea syndrome; Vitamin D deficiency; Arthropathy of cervical facet joint Start: 02-17-2024 End: 02-17-2024 ambulatory [facility]ulatory Start: 02-11-2024 End: 02-11-2024 ambulatory [facility] Start: 02-11-2024 End: 02-11-2024 Encounter for general adult medical examination without abnormal findings [facility] Start: 12-09-2023 End: 12-09-2023 Office outpatient visit 15 minutes Amalia Knight APRN-SPA TECHNICIAN Work Phone: [facility] Comment on above: DONTRELL (obstructive sle ep apnea) (Primary Dx) Start: 12-09-2023 End: 12-09-2023 [facility] Facility:[facility] Start: 08-22-2023 End: 08-22-2023 Office outpatient visit 25 minutes Leo Sheffield MD, PhD Work Phone: Division of Endocrinology Comment on above: Pituitary adenoma (P rimary Dx); Panhypopituitarism; Growth hormone deficiency (human); Polyarthralgia; Adrenal insufficiency; Hypogonadotropic hypogonadism; Vitamin D deficiency Start: 08-22-2023 End: 08-22-2023 Clinical Support Encounter Leo Sheffield MD, PhD Work Phone: [facility] Comment on above: Examination of parti cipant in clinical trial; Hypogonadotropic hypogonadism; Panhypopituitarism; Growth hormone deficiency (human); Adrenal insufficiency Start: 08-22-2023 End: 08-22-2023 Patient encounter procedure Leo Sheffield MD, PhD Work Phone: [facility] Start: 08-14-2023 End: 08-14-2023 Office outpatient visit 25 minutes Althea Yang MD Work Phone: [facility] Comment on above: Healthcare maintenan ce (Primary Dx); Type 2 diabetes mellitus without complication, without long-term current use of insulin (CMS/HCC); Primary hypertension; Chronic allergic rhinitis; Class 2 severe obesity due to excess calories with serious comorbidity and body mass index (BMI) of 39.0 to 39.9 in adult (CMS/HCC); Adenomatous polyp of colon, unspecified part of colon; Familial hyperlipidemia; Frequent headaches; Gastroesophageal reflux disease without esophagitis; History of benign pituitary tumor; Low back pain of thoracolumbar region with sciatica; Low testosterone; Panhypopituitarism (CMS/HCC); Polyarthralgia; Secondary hypothyroidism; Obstructive sleep apnea syndrome; Vitamin D deficiency Start: 08-14-2023 End: 08-14-2023 Patient encounter status Althea Yang MD Work Phone: [facility] Work Phone: Start: 08-11-2023 End: 08-11-2023 ambulatory ALTHEA YANG [facility] Start: 06-24-2023 End: 06-24-2023 Subsequent hospital visit by physician Live [facility] [employer] [facility] Comment on above: Arrived Start: 06-24-2023 End: 06-24-2023 ambulatory LULA ERNST [facility] Start: 06-23-2023 End: 06-23-2023 Emergency department patient visit Tacos Ash DO Work Phone: [facility] Comment on above: COVID-19 (Primary Dx ) Start: 02-10-2023 End: 02-10-2023 Office outpatient visit 25 minutes Althea Yang MD Work Phone: [facility] Comment on above: Type 2 diabetes elroy itus without complication, without long- term current use of insulin (CMS/HCC) (Primary Dx); Pituitary adenoma (CMS/HCC); Chronic allergic rhinitis; Adenomatous polyp of colon, unspecified part of colon; Familial hyperlipidemia; Frequent headaches; Gastroesophageal reflux disease without esophagitis; History of benign pituitary tumor; Primary hypertension; Low testosterone; Morbid obesity with BMI of 40.0-44.9, adult (CMS/HCC); Panhypopituitarism (CMS/HCC); Polyarthralgia; Secondary hypothyroidism; Obstructive sleep apnea syndrome; Vitamin D deficiency Start: 10-07-2022 End: 10-07-2022 Office outpatient visit 25 minutes Althea Yang MD Work Phone: [facility] Comment on above: Frequent headaches ( Primary Dx); Low back pain of thoracolumbar region with sciatica; Chronic allergic rhinitis; Type 2 diabetes mellitus without complication, without long-term current use of insulin (CMS/HCC); Hyperplastic colonic polyp, unspecified part of colon; History of benign pituitary tumor; Gastroesophageal reflux disease without esophagitis; Familial hyperlipidemia; Low testosterone; Panhypopituitarism (CMS/HCC); Polyarthralgia; Secondary hypothyroidism Start: 08-16-2022 End: 08-16-2022 Office outpatient visit 25 minutes Leo Sheffield MD, PhD Work Phone: Division of Endocrinology Comment on above: Hypogonadotropic hyp ogonadism (Primary Dx); Panhypopituitarism; Growth hormone deficiency (human); Adrenal insufficiency Start: 08-16-2022 End: 08-16-2022 Subsequent hospital visit by physician Pema Maguire PA-C Work Phone: [facility] Comment on above: Arrived Start: 08-16-2022 End: 08-16-2022 Clinical Support Encounter Pema Maguire PA-C Work Phone: [facility] Comment on above: Hypogonadotropic hyp ogonadism; Panhypopituitarism; Adrenal insufficiency; Pituitary adenoma; Growth hormone deficiency (human); Vitamin D deficiency; Type 2 diabetes mellitus treated without insulin Start: 08-02-2022 Office outpatient vi sit 15 minutes Althea Yang Work Phone: [facility] Work Phone: Start: 08-02-2022 ambulatory ALTHEA YANG Facility:[id number] Start: 05-19-2022 End: 05-20-2022 Emergency department patient visit Peri Wallace [facility] Emergency 05 Start: 05-13-2022 Office outpatient vi sit 15 minutes Althea O Yang Work Phone: [facility] [employer] Work Phone: Start: 04-03-2022 End: 04-03-2022 Office outpatient visit 25 minutes Amalia Lugo Alissa [facility] Work Phone: [facility] Comment on above: DONTRELL (obstructive sle ep apnea) (Primary Dx) Start: 03-21-2022 Office outpatient vi sit 25 minutes Althea O Yang Work Phone: [facility] Work Phone: Start: 03-18-2022 AUDIT Althea O Yang Work Phone: [facility] [employer] Work Phone: Start: 12-25-2021 Office outpatient vi sit 15 minutes Althea O Yang Work Phone: [facility] Work Phone: Start: 11-01-2021 Patient encounter procedure Althea O Yang Work Phone: [facility] [employer] [facility] Work Phone: Start: 10-17-2021 Chart Update Althea O Yang Work Phone: [facility] Work Phone: Start: 10-17-2021 Office outpatient vi sit 15 minutes Althea O Yang Work Phone: [facility] [facility] Work Phone: Start: 09-14-2021 Office outpatient vi sit 25 minutes Althea O Yang Work Phone: [facility] [facility] Work Phone: Start: 07-09-2021 Office outpatient vi sit 15 minutes Althea Yang Work Phone: [facility] Work Phone: Start: 03-17-2021 AUDIT Althea Yang Work Phone: [facility] Work Phone: Start: 03-13-2021 Office outpatient vi sit 25 minutes Althea Yang Work Phone: [facility] Work Phone: Start: 11-22-2020 Patient encounter procedure Althea Yang Work Phone: [facility] Work Phone: Procedures Date Procedure Procedure Detail Performing Clinician Start: 09-09-2024 INJECTION TENDON OR LIGAMENT Victoria Alexandre MARKETING AND COMMUNICATIONS OFFICER-SPA TECHNICIAN Work Phone: Start: 02-11-2024 Lipid 1996 panel - S tori or Plasma Althea Yang MD Work Phone: Start: 12-09-2023 Follow-up visit Follow-up AMALIA KNIGHT Start: 08-22-2023 Comprehensive metabo lic panel Pema ZARCO Work Phone: Start: 08-11-2023 Comprehensive metabo lic 2000 panel - Serum or Plasma ALTHEA YANG Start: 08-11-2023 Hemoglobin A1c/Hemoglobin.total in Blood ALTHEA YANG Start: 06-24-2023 ECG 12-LEAD [facility]A [facility] Start: 06-24-2023 Ecg routine ecg w/le ast 12 lds trcg only w/o i&r Lula Ernst MARKETING AND COMMUNICATIONS OFFICER-SPA TECHNICIAN Work Phone: Start: 06-23-2023 CT ANGIO CHEST FOR P ULMONARY EMBOLISM ALTHEA CELIA Start: 06-23-2023 CT HEAD WO IV CONTRAST ALTHEA YANG Start: 06-23-2023 SERIAL TROPONIN, 1 HOUR ALTHEA YANG Start: 06-23-2023 Ct angiography chest w/contrast/noncontrast Lula C Bilderback MARKETING AND COMMUNICATIONS OFFICER-SPA TECHNICIAN Work Phone: Start: 06-23-2023 Ct head/brain w/o co ntrast material Lula Liebermanderback MARKETING AND COMMUNICATIONS OFFICER-SPA TECHNICIAN Work Phone: Start: 06-23-2023 XR CHEST 1 VIEW ALTHEA CHAVIRA Start: 06-23-2023 CBC W Auto Different ial panel - Blood ALTHEA YANG Start: 06-23-2023 Comprehensive metabo lic 2000 panel - Serum or Plasma ALTHEA GAINESYDER Start: 06-23-2023 Magnesium [Mass/volu me] in Serum or Plasma ALTHEA GAINESYDER Start: 06-23-2023 Morphology Rosas (Bld) [Interp] ALTHEA YANG Start: 06-23-2023 TROPONIN SERIES- (IN ITIAL, 1 HR) ALTHEA GAINESYDER Start: 06-23-2023 ECG 12-LEAD [facility]A [facility] Start: 06-23-2023 INSERT PERIPHERAL IV RO BRYCE YANG Start: 06-23-2023 Assay of troponin quantitative Lula Liebermanderanna MARKETING AND COMMUNICATIONS OFFICER-SPA TECHNICIAN Work Phone: Start: 06-23-2023 Radiologic exam ches t single view Lula Liebermanderback MARKETING AND COMMUNICATIONS OFFICER-SPA TECHNICIAN Work Phone: Start: 06-23-2023 Comprehensive metabo lic panel Lula Liebermanderback MARKETING AND COMMUNICATIONS OFFICER-SPA TECHNICIAN Work Phone: Start: 06-23-2023 RBC shape Nom (Bld) Sarah Beth Velasquez Bilderback MARKETING AND COMMUNICATIONS OFFICER-SPA TECHNICIAN Work Phone: Start: 06-23-2023 Troponin I.cardiac p merlene - Serum or Plasma by High sensitivity method Lula Ernst MARKETING AND COMMUNICATIONS OFFICER-SPA TECHNICIAN Work Phone: Start: 02-04-2023 Lipid 1996 panel - S tori or Plasma Althea Yang MD Work Phone: Start: 08-16-2022 Comprehensive metabo lic panel Pema Maguire PA-C Work Phone: Start: 05-19-2022 End: 05-19-2022 EKG impression Peri Wallace Start: 03-18-2022 Lipid 1996 panel - S tori or Plasma Althea Yang MD Work Phone: Start: 03-27-2020 Colonoscopy Althea dorman MD Work Phone: Start: 02-22-2019 Thyrotropin [Units/v olume] in Serum or Plasma Althea Yang MD Work Phone: Start: 01-14-2019 [object Object] Comment on above: Result Comment: AGE- SPECIFIC REFERENCE RANGES FOR SERUM PSA REFERENCE RANGE NG/ML AGE ASIANS BLACKS WHITE 40-49 0-2 0-2 0-2.5 50-59 0-3 0-4 0-3.5 60-69 0-4 0-4.5 0-4.5 70-79 0-5 0-5.5 0-6.5 PSA INCREASES WITH AGE, RACE, AND EJACULATION WITHIN 48 HRS. [facility] VOL24,NO.2, , PG.339 Performed By: #### 1 [id number] #### LILLIAM [employer] [address] [place] [address] Start: 10-01-2016 Colonoscopy Althea luke Work Phone: Cholecystectomy Althea dorman Work Phone: Nasal sinus procedure Althea Yang Work Phone: Operation on pituitary gland Althea Yang Work Phone: Comment on above: tumor removal; Plan of Treatment Date Care Activity Detail Author Start: 2037 RSV High Risk: (Elderly (60+) or Population) (1 - 1-dose 75+ series) RSV High Risk: (Elderly (60+) or Population) (1 - 1-dose 75+ series) [facility] Start: 03-27-2030 Screening for malignant neoplasm of colon [facility] Start: 12-03-2025 Glaucoma screening Diabetes: Retinopathy Screening [facility] Start: 09-05-2025 End: 09-05-2025 Patient encounter procedure 09/05/2025 9:00 AM EDT Office Visit Division of Endocrinology [address] [place] [address] Pema Maguire PA-C [address] [address] Division of Endocrinology Start: 08-30-2025 End: 08-30-2025 OUTSIDE LAB ORDERS OUTSIDE LAB ORDERS Outside Labs Routine Hypogonadotropic hypogonadism Panhypopituitarism Adrenal insufficiency Expected: 08/30/2025, Expires: 08/30/2025 [facility] Comment on above: Expected: 08/30/2025, Expires: Start: 08-20-2025 Yearly Adult Physical Yearly Adult Physical [facility] Start: 05-21-2025 End: 11-19-2025 Basic metabolic 2000 panel - Serum or Plasma Basic Metabolic Panel Lab Routine Type 2 diabetes mellitus without complication, without long-term current use of insulin Expected: 05/21/2025 (Approximate), Expires: 11/19/2025 [facility] Service Area Work Phone: Comment on above: Expected: 05/21/2025 (Approximate), Expi res: 11/19/2025 Start: 05-21-2025 End: 11-19-2025 Hemoglobin A1c/Hemoglobin.total in Blood Hemoglobin A1C Lab Routine Type 2 diabetes mellitus without complication, without long-term current use of insulin Expected: 05/21/2025 (Approximate), Expires: 11/19/2025 [facility] Work Phone: Comment on above: Expected: 05/21/2025 (Approximate), Expi res: 11/19/2025 Start: 05-21-2025 End: 11-19-2025 Microalbumin/Creatinine [Mass Ratio] in Urine Albumin-Creatinine Ratio, Urine Random Lab Routine Type 2 diabetes mellitus without complication, without long-term current use of insulin Expected: 05/21/2025 (Approximate), Expires: 11/19/2025 [facility] Work Phone: Comment on above: Expected: 05/21/2025 (Approximate), Expi res: 11/19/2025 Start: 05-20-2025 End: 05-20-2025 Patient encounter procedure 05/20/2025 4:00 PM EST Office Visit [facility] [address] [place] [id number] Victoria Alexandre, MARKETING AND COMMUNICATIONS OFFICER-SPA TECHNICIAN [address] [facility], [address] [place] [address] [facility] Start: 02-14-2025 Influenza vaccination Influenza Vaccine (Season Ended) [facility] Start: 02-13-2025 Hemoglobin A1c measurement Diabetes: Hemoglobin A1C [facility] Start: 02-10-2025 Lipid panel Lipid Panel [facility] Start: 12-24-2024 End: 12-24-2024 Patient encounter procedure Sleep Medicine [facility] Start: 12-03-2024 Glaucoma screening Diabetes: Retinopathy Screening [facility] Start: 11-30-2024 End: 08-30-2025 OUTSIDE LAB ORDERS OUTSIDE LAB ORDERS Outside Labs Routine Hypogonadotropic hypogonadism Panhypopituitarism Adrenal insufficiency Expected: 11/30/2024, Expires: 08/30/2025 [facility] Comment on above: Expected: 11/30/2024, Expires: Start: 11-19-2024 End: 11-19-2024 Patient encounter procedure 11/19/2024 4:20 PM EDT Office Visit [facility] [address] [place] [id number] Victoria Alexandre, MARKETING AND COMMUNICATIONS OFFICER-SPA TECHNICIAN [address] [facility], [address] [place] [address] [facility] Start: 09-09-2024 End: 09-09-2024 Patient encounter procedure 09/09/2024 4:40 PM EDT Office Visit [facility] [address] [place] [id number] Victoria Alexandre, MARKETING AND COMMUNICATIONS OFFICER-SPA TECHNICIAN [address] [facility], [address] [place] [address] [facility] Start: 08-30-2024 End: 08-30-2024 Patient encounter procedure Division of Endocrinology Start: 08-21-2024 End: 08-21-2024 OUTSIDE LAB ORDERS OUTSIDE LAB ORDERS Outside Labs Routine Pituitary adenoma Panhypopituitarism Growth hormone deficiency (human) Polyarthralgia Adrenal insufficiency Hypogonadotropic hypogonadism Vitamin D deficiency Expected: 08/21/2024, Expires: 08/21/2024 [facility] Comment on above: Expected: 08/21/2024, Expires: Start: 08-19-2024 End: 08-19-2025 Basic metabolic 2000 panel - Serum or Plasma Basic Metabolic Panel Lab Routine Type 2 diabetes mellitus without complication, without long-term current use of insulin (Multi) Expected: 08/19/2024 (Approximate), Expires: 08/19/2025 [facility] Service Area Work Phone: Comment on above: Expected: 08/19/2024 (Approximate), Expi res: 08/19/2025 Start: 08-19-2024 End: 08-19-2025 Hemoglobin A1c/Hemoglobin.total in Blood Hemoglobin A1C Lab Routine Type 2 diabetes mellitus without complication, without long-term current use of insulin (Multi) Expected: 08/19/2024 (Approximate), Expires: 08/19/2025 [facility] Work Phone: Comment on above: Expected: 08/19/2024 (Approximate), Expi res: 08/19/2025 Start: 06-29-2024 End: 06-29-2024 Telemedicine consultation with patient 06/29/2024 1:20 PM EST Telemedicine [facility] [address] [place] [address] Victoria Alexandre, MARKETING AND COMMUNICATIONS OFFICER-SPA TECHNICIAN [address] [facility], [address] [place] [address] [facility] Start: 05-13-2024 Hemoglobin A1c measurement Diabetes: Hemoglobin A1C [facility] Start: 02-22-2024 Hemoglobin A1c measurement HBA1C TEST [facility] Start: 02-17-2024 End: 02-17-2024 Patient encounter procedure 02/17/2024 4:00 PM EDT Office Visit [facility] [address] [place] [phone] Althea Yang MD [address] [facility], [address] [place] [address] [facility] Start: 02-17-2024 End: 05-18-2024 XR Cervical spine 2 or 3 Views XR cervical spine 2-3 views Imaging Routine Arthropathy of cervical facet joint Expected: 02/17/2024 (Approximate), Expires: 05/18/2024 [facility] Service Area Work Phone: Comment on above: Expected: 02/17/2024 (Approximate), Expi res: 05/18/2024 Start: 02-15-2024 COVID-19 VACCINE ( season) COVID-19 VACCINE ( season) [facility] Start: 02-15-2024 COVID-19 Vaccine ( season) COVID-19 Vaccine ( season) [facility] Start: 02-15-2024 COVID-19 Vaccine ( season) COVID-19 Vaccine ( season) [facility] Start: 02-15-2024 Influenza vaccination [facility] Start: 02-12-2024 End: 08-13-2024 Comprehensive metabolic 2000 panel - Serum or Plasma Comprehensive Metabolic Panel Lab Routine Type 2 diabetes mellitus without complication, without long-term current use of insulin ([facility]) Expected: 02/12/2024 (Approximate), Expires: 08/13/2024 [facility] Work Phone: Comment on above: Expected: 02/12/2024 (Approximate), Expi res: 08/13/2024 Start: 02-12-2024 End: 08-13-2024 Hemoglobin A1c/Hemoglobin.total in Blood Hemoglobin A1C Lab Routine Type 2 diabetes mellitus without complication, without long-term current use of insulin ([facility]) Expected: 02/12/2024 (Approximate), Expires: 08/13/2024 [facility] Service Area Work Phone: Comment on above: Expected: 02/12/2024 (Approximate), Expi res: 08/13/2024 Start: 02-12-2024 End: 08-13-2024 Lipid 1996 panel - Serum or Plasma Lipid Panel Lab Routine Type 2 diabetes mellitus without complication, without long-term current use of insulin ([facility]) Expected: 02/12/2024 (Approximate), Expires: 08/13/2024 [facility] Work Phone: Comment on above: Expected: 02/12/2024 (Approximate), Expi res: 08/13/2024 Start: 02-12-2024 End: 08-13-2024 Prostate specific Ag [Mass/volume] in Serum or Plasma Prostate Specific Antigen, Screen Lab Routine Healthcare maintenance Expected: 02/12/2024 (Approximate), Expires: 08/13/2024 [facility] Work Phone: Comment on above: Expected: 02/12/2024 (Approximate), Expi res: 08/13/2024 Start: 02-05-2024 Lipid panel Lipid Panel [facility] Start: 12-09-2023 End: 12-09-2023 Patient encounter procedure 12/09/2023 8:30 AM EDT Office Visit Sleep Medicine [facility] [address] [place] [address] Amalia Knight, MARKETING AND COMMUNICATIONS OFFICER-SPA TECHNICIAN [address] [place] [phone] Sleep Medicine [facility] Start: 11-09-2023 Hemoglobin A1c measurement Diabetes: Hemoglobin A1C [facility] Start: 08-22-2023 End: 08-22-2023 Patient encounter procedure Clinical Lab Noelle Camara Start: 08-17-2023 End: 08-17-2023 Comprehensive metabolic 2000 panel - Serum or Plasma COMPREHENSIVE METABOLIC PANEL Lab Routine Hypogonadotropic hypogonadism Panhypopituitarism Growth hormone deficiency (human) Adrenal insufficiency Expected: 08/17/2023, Expires: 08/17/2023 [facility] Comment on above: Expected: 08/17/2023, Expires: Start: 08-17-2023 End: 08-17-2023 Hemoglobin A1c/Hemoglobin.total in Blood HEMOGLOBIN A1C Lab Routine Hypogonadotropic hypogonadism Panhypopituitarism Growth hormone deficiency (human) Adrenal insufficiency Expected: 08/17/2023, Expires: 08/17/2023 [facility] Comment on above: Expected: 08/17/2023, Expires: Start: 08-17-2023 End: 08-17-2023 INSULIN-LIKE GROWTH FACTOR 1 INSULIN-LIKE GROWTH FACTOR 1 Lab Routine Hypogonadotropic hypogonadism Panhypopituitarism Growth hormone deficiency (human) Adrenal insufficiency Expected: 08/17/2023, Expires: 08/17/2023 [facility] Comment on above: Expected: 08/17/2023, Expires: Start: 08-17-2023 End: 08-17-2023 T3 TOTAL (TRIIODOTHYRONINE) T3 TOTAL (TRIIODOTHYRONINE) Lab Routine Hypogonadotropic hypogonadism Panhypopituitarism Growth hormone deficiency (human) Adrenal insufficiency Expected: 08/17/2023, Expires: 08/17/2023 [facility] Comment on above: Expected: 08/17/2023, Expires: Start: 08-17-2023 End: 08-17-2023 Testosterone [Mass/volume] in Serum or Plasma TESTOSTERONE Lab Routine Hypogonadotropic hypogonadism Panhypopituitarism Growth hormone deficiency (human) Adrenal insufficiency Expected: 08/17/2023, Expires: 08/17/2023 [facility] Comment on above: Expected: 08/17/2023, Expires: Start: 08-17-2023 End: 08-17-2023 Thyroxine (T4) free [Mass/volume] in Serum or Plasma T4 FREE Lab Routine Hypogonadotropic hypogonadism Panhypopituitarism Growth hormone deficiency (human) Adrenal insufficiency Expected: 08/17/2023, Expires: 08/17/2023 [facility] Comment on above: Expected: 08/17/2023, Expires: Start: 08-17-2023 End: 08-17-2023 VITAMIN D (25-HYDROXY,TOTAL) VITAMIN D (25-HYDROXY,TOTAL) Lab Routine Hypogonadotropic hypogonadism Panhypopituitarism Growth hormone deficiency (human) Adrenal insufficiency Expected: 08/17/2023, Expires: 08/17/2023 [facility] Comment on above: Expected: 08/17/2023, Expires: Start: 08-14-2023 End: 08-14-2023 Patient encounter procedure 08/14/2023 4:00 PM EST Office Visit [facility] [address] [phone] Althea Yang MD [address] [facility], [facility] [address] [place] [id number] [facility] Start: 08-13-2023 End: 02-11-2024 Comprehensive metabolic 2000 panel - Serum or Plasma Comprehensive Metabolic Panel Lab Routine Type 2 diabetes mellitus without complication, without long-term current use of insulin (CMS/HCC) Expected: 08/13/2023 (Approximate), Expires: 02/11/2024 [facility] Service Area Work Phone: Comment on above: Expected: 08/13/2023 (Approximate), Expi res: 02/11/2024 Start: 08-13-2023 End: 02-11-2024 Hemoglobin A1c/Hemoglobin.total in Blood Hemoglobin A1C Lab Routine Type 2 diabetes mellitus without complication, without long-term current use of insulin (CMS/HCC) Expected: 08/13/2023 (Approximate), Expires: 02/11/2024 [facility] Work Phone: Comment on above: Expected: 08/13/2023 (Approximate), Expi res: 02/11/2024 Start: 05-07-2023 Hemoglobin A1c measurement Diabetes: Hemoglobin A1C [facility] Start: 03-18-2023 Lipid panel Lipid Panel [facility] Start: 02-16-2023 Hemoglobin A1c measurement HBA1C TEST [facility] Start: 02-14-2023 COVID-19 VACCINE () COVID-19 VACCINE () [facility] Start: 02-14-2023 COVID-19 Vaccine () COVID-19 Vaccine () [facility] Start: 02-14-2023 Influenza vaccination Influenza Vaccine (#1) [facility] Start: 01-08-2023 End: 01-08-2023 Patient encounter procedure 01/08/2023 Office Visit Sleep Medicine Amalia Knight, MARKETING AND COMMUNICATIONS OFFICER-SPA TECHNICIAN [address] [place] [address] [facility] Start: 10-07-2022 FUV, Provider: Althea Yang, Status: Pen, Time: 4:30 PM FUV, Provider: Althea Yang, Status: Pen, Time: 4:30 PM [facility] Work Phone: Start: 10-07-2022 Patient encounter procedure [facility] Start: 08-16-2022 End: 08-16-2022 Patient encounter procedure 08/16/2022 Office Visit Endocrinology, Diabetes & Metabolism Leo Sheffield MD, PhD [address] [place] [address] Division of Endocrinology Start: 08-16-2022 End: 08-16-2022 Clinical Support Encounter Clinical Lab Noelle Borges 1 Start: 07-10-2022 End: 07-10-2022 Telemedicine consultation with patient 07/10/2022 Telemedicine Sleep Medicine Amalia Knight, MARKETING AND COMMUNICATIONS OFFICER-SPA TECHNICIAN [address] [place] [address] [facility] Start: 2022 RSV High Risk: (Elderly (60+) or Population) (1 - Risk 60-74 years 1-dose series) RSV High Risk: (Elderly (60+) or Population) (1 - Risk 60-74 years 1-dose series) [facility] Start: 2022 RSV patients and/or patients aged 60+ years (1 - 1-dose 60+ series) RSV patients and/or patients aged 60+ years (1 - 1-dose 60+ series) [facility] Start: 2022 RSV VACCINE (1 - Risk 60-74 years 1-dose series) RSV VACCINE (1 - Risk 60-74 years 1-dose series) [facility] Start: 03-21-2022 EPV, Provider: Althea Yang, Status: Pen, Time: 4:30 PM EPV, Provider: Althea Yang, Status: Pen, Time: 4:30 PM [facility] Work Phone: Start: 03-13-2022 Pneumococcal vaccination [facility] Start: 03-13-2022 PNEUMOCOCCAL VACCINE SERIES (2 - PCV) PNEUMOCOCCAL VACCINE SERIES (2 - PCV) [facility] Start: 03-13-2022 PNEUMOCOCCAL VACCINE SERIES (2 of 2 - PCV) PNEUMOCOCCAL VACCINE SERIES (2 of 2 - PCV) [facility] Start: 03-13-2022 Pneumococcal Vaccine: Pediatrics (0 to 5 Years) and At-Risk Patients (6 to 64 Years) (2 - PCV) Pneumococcal Vaccine: Pediatrics (0 to 5 Years) and At-Risk Patients (6 to 64 Years) (2 - PCV) [facility] Start: 03-13-2022 Pneumococcal Vaccine: Pediatrics (0 to 5 Years) and At-Risk Patients (6 to 64 Years) (2 of 2 - PCV) Pneumococcal Vaccine: Pediatrics (0 to 5 Years) and At-Risk Patients (6 to 64 Years) (2 of 2 - PCV) [facility] Start: 02-20-2022 Hemoglobin A1c measurement HBA1C TEST [facility] Start: 02-16-2022 Prostate specific antigen measurement PROSTATE CANCER SCREENING DISCUSSION [facility] Start: 09-06-2021 EPV, Provider: Althea Yang, Status: Pen, Time: 4:00 PM EPV, Provider: Althea Yang, Status: Pen, Time: 4:00 PM [facility] Work Phone: Start: 04-20-2021 COVID-19 Vaccine (3 - Booster for Moderna series) COVID-19 Vaccine (3 - Booster for Moderna series) [facility] Start: 04-20-2021 COVID-19 Vaccine (3 - Moderna series) COVID-19 Vaccine (3 - Moderna series) [facility] Start: 03-27-2021 Screening for malignant neoplasm of colon COLORECTAL CANCER SCREENING DISCUSSION [facility] Start: 03-13-2021 EPV, Provider: Althea Yang, Status: Pen, Time: 4:00 PM EPV, Provider: Althea Yang, Status: Pen, Time: 4:00 PM [facility] Work Phone: Start: 02-23-2020 Thyroid stimulating hormone measurement [facility] Start: 09-18-2016 Lipid panel LIPIDS [facility] Start: 2012 Zoster vaccine hzv live for subcutaneous use ZOSTER (SHINGLES) VACCINE (1 of 2) [facility] Start: 2012 Zoster Vaccines (1 of 2) Zoster Vaccines (1 of 2) [facility] Start: 2007 Screening for malignant neoplasm of colon COLORECTAL CANCER SCREENING DISCUSSION [facility] Start: 1984 DTaP/Tdap/Td Vaccines (1 - Tdap) DTaP/Tdap/Td Vaccines (1 - Tdap) [facility] Start: 1981 Third diphtheria, tetanus and acellular pertussis (DTaP) vaccination TDAP (ADULT) [facility] Start: 1981 Urine screening for protein Diabetes: Urine Protein Screening [facility] Start: 1980 Hepatitis C screening Hepatitis C Screening [facility] Start: 1980 Tetanus vaccination TETANUS [facility] Start: 1977 HIV screening HIV SCREENING DISCUSSION [facility] Start: 1972 Diabetic foot examination Diabetes: Foot Exam [facility] Start: 1972 Glaucoma screening Diabetes: Retinopathy Screening [facility] Start: 1972 Ophthalmic examination and evaluation Diabetes: Retinopathy Screening [facility] Start: 1963 MMR Vaccines (1 of 1 - Standard series) MMR Vaccines (1 of 1 - Standard series) [facility] Start: 1962 COVID-19 VACCINE (#1) COVID-19 VACCINE (#1) [facility] Start: 1962 Diabetic foot examination DIABETIC FOOT EXAM [facility] Start: 1962 Glaucoma screening EYE EXAM [facility] Start: 1962 Hemoglobin A1c measurement Diabetes: Hemoglobin A1C [facility] Start: 1962 Hepatitis C screening HEPATITIS C VIRUS SCREENING [facility] Start: 1962 HIV screening HIV Screening [facility] Start: 1962 Screening for malignant neoplasm of colon [facility] Start: 1962 Tetanus vaccination TETANUS [facility] Start: 1962 Thyroid stimulating hormone measurement TSH Level [facility] Start: 1962 Urine screening for protein [facility] Start: 1962 Yearly Adult Physical Yearly Adult Physical [facility] ACTH ACTH Lab Routine Hypogonadotropic hypogonadism Panhypopituitarism Adrenal insufficiency Pituitary adenoma Growth hormone deficiency (human) Vitamin D deficiency Type 2 diabetes mellitus treated without insulin 08/16/2022 9:24 AM EST [facility] End: 06-23-2023 ECG 12 lead [facility] Service Area Work Phone: Comment on above: Every 1 hour for 2 Occurrences starting 06/23/2023 until 06/23/2023 As needed until disc ontinued starting 06/23/2023 History of cholecystectomy History of laparoscopic cholecystectomy [facility] History of colonoscopy History of colonos copy [facility] INSULIN-LIKE GROWTH FACTOR 1 INSULIN-LIKE GROWTH FACTOR 1 Lab Routine Hypogonadotropic hypogonadism Panhypopituitarism Adrenal insufficiency Pituitary adenoma Growth hormone deficiency (human) Vitamin D deficiency Type 2 diabetes mellitus treated without insulin 08/16/2022 9:24 AM EST [facility] INSULIN-LIKE GROWTH FACTOR 1 INSULIN-LIKE GROWTH FACTOR 1 Lab Routine Hypogonadotropic hypogonadism Panhypopituitarism Growth hormone deficiency (human) Adrenal insufficiency 08/22/2023 10:44 AM EST [facility] End: 08-16-2022 MR Brain and Pituitary and Sella turcica WO and W contrast IV [facility] Comment on above: 1 Occurrences starting 08/16/2022 until 08/16/2022 Pituitary gland disorder Pituitary gland disorder [facility] End: 06-23-2023 Pulse oximetry, continuous Pulse oximetry, continuous Respiratory Care STAT Continuous until discontinued starting 06/23/2023 [facility] Work Phone: Comment on above: Continuous until discontinued starting 0 06/23/2023 TCCP - GOLD TCCP - GOLD Lab Routine Examination of participant in clinical trial 08/22/2023 10:44 AM [facility] TCCP - LAV TCCP - LAV Lab R outine Examination of participant in clinical trial 08/22/2023 10:44 AM [facility] TOTAL CANCER CARE PROTOCOL (NOELLE ONLY) TOTAL CANCER CARE PROTOCOL (NOELLE ONLY) Lab Routine Examination of participant in clinical trial 08/22/2023 10:44 AM [facility] Work Phone: Immunizations Immunization Date Immunization Notes Care Provider Rena walker 03-21-2022 influenza, injectabl e, quadrivalent, preservative free; Translations: [Flulaval Quadrivalent 0.5 ML Intramuscular Suspension Prefilled Syringe] Althea Yang Work Phone: [facility] Work Phone: Comment on above: Series: 03-21-2022 influenza, seasonal, injectable Althea Yang MD Work Phone: [facility] Work Phone: 03-21-2022 influenza virus vacc ine, unspecified formulation Althea Yang MD Work Phone: [facility] Work Phone: 03-13-2021 influenza, injectabl e, quadrivalent, preservative free; Translations: [Flulaval Quadrivalent 0.5 ML Intramuscular Suspension Prefilled Syringe] Althea Yang Work Phone: [facility] Work Phone: Comment on above: Series: 03-13-2021 influenza, seasonal, injectable Althea Yang Work Phone: [facility] Work Phone: Comment on above: Series: 03-13-2021 pneumococcal polysaccharide vaccine, 23 valent; Translations: [Pneumococcal polysaccharide vaccine, 23 valent] Althea Yang Work Phone: [facility] Work Phone: Comment on above: Series: 02-23-2021 Moderna COVID-19 Vac cine 100 MCG/0.5ML Intramuscular Suspension Althea Yang Work Phone: [facility] 10-04-2020 Moderna COVID-19 Vac cine 100 MCG/0.5ML Intramuscular Suspension Althea Yang Work Phone: [facility] Work Phone: Comment on above: Series: 04-05-2016 influenza virus vacc ine, unspecified formulation Althea Yang Work Phone: [facility] Work Phone: Comment on above: Series: 03-22-2014 pneumococcal polysaccharide vaccine, 23 valent Althea Yang Work Phone: [facility] Work Phone: Comment on above: Series: Payers Date Payer Category Payer Self-pay 2022 Managed Care (Private) [facility] [id number] 2019 Unknown 2019 Unknown [id number] 1960 Unknown [id number] [id number]. 1069 1962 Unknown [id number] 2.16.840.1.527447.3.579.2. 356 1962 Unknown [id number] 2.16.840.1.594071.3.579.2. 1245 1962 Unknown [id number] 2.16.840.1.148213.3.579.2. 1245 1962 Unknown [id number] 2.16.840.1.714367.3.579.2. 1243 1962 Unknown [id number] 2.16.840.1.112243.3.579.2. 1243 1962 Unknown [id number] 2.16.840.1.070025.3.579.2. 1244 1962 Unknown [id number] 2.16.840.1.838048.3.579.2. 1244 1962 Unknown [id number] 2.16.840.1.481525.3.579.2. 1244 1962 Unknown [id number] 2.16.840.1.719143.3.579.2. 1244 1962 Unknown [id number] 2.16.840.1.860951.3.579.2. 1244 1962 Unknown [id number] 2.16.840.1.373029.3.579.2. 1244 1962 Unknown [id number] 2.16.840.1.624829.3.579.2. 594 1962 Unknown [id number] 2.16.840.1.219445.3.579.2. 594 Managed Care (unspecified) [employer] [id number] Unknown [id number] [id number]. 462 Social History Date Type Detail Facility Start: 10-07-2022 End: 11-19-2024 Does not have living will Does not have living will -[facility] Work Phone: Start: 02-23-2014 End: 10-07-2022 Tobacco smoking status NHIS Never smoked tobacco [facility] Start: 02-23-2014 End: 10-07-2022 Tobacco use and exposure Smokeless tobacco non-user [facility] Start: 04-03-2022 End: 08-30-2024 Alcohol intake Current non-drinker of alcohol (finding) [facility] Start: 1960 Sex Assigned At Not on file [facility] Tobacco smoking consumption unknown [facility] Start: 08-06-2022 End: 11-19-2024 Exposure to SARS-CoV-2 (event) Not sure [facility] Start: 10-07-2022 Alcohol intake Ex-drinker (finding) [facility] Work Phone: Start: 10-07-2022 End: 11-19-2024 Tobacco use panel [facility] Work Phone: Start: 02-10-2023 End: 11-19-2024 Alcohol intake Lifetime non-drinker (finding) [facility] Work Phone: Start: 06-13-2023 End: 06-23-2023 Exposure to SARS-CoV-2 (event) Yes [facility] Adolescent depressio n screening assessment 0 [facility] Gender identity Identifies as ma le gender (finding) [facility] Start: 09-01-2018 Sexual orientation Heterosexual (finding) [facility] Start: 06-19-2024 End: 06-29-2024 Exposure to SARS-CoV-2 (event) Unable to assess [facility] Start: 02-09-2014 Sex Male (finding) [facility] Medical Equipment Procedure Code Equipment Code Equipment Origin al Text Equipment Identifier Dates [id number] Start: 02-20-2022 End: 12-09-2023 1 each once daily. [id number] Start: 10-07-2022 End: 10-07-[address] rips and lancets as directed to check blood sugar 1 times per day [id number] Start: 10-07-2022 End: 10-07-2023 Use daily with t est strips [id number] Start: 10-07-2022 Functional Status Date Assessment Result Facility 12-03-2024 IGF-I Z-score SerPl -0.3 [facility] Comment on above: Order Comment: Speci men Type: BLOOD SPECIMEN Ordering Facility: [facility] Address: [address] [place] [address] Performed By: #### I [id number] #### [facility] CLIA [id number] [address] [place] [address] [place] 11-19-2024 Patient Health Questionnaire 2 item (PHQ-2) [Reported] [facility] Work Phone: 07-28-2014 Are you deaf, or do you have serious difficulty hearing No 07/28/2014 6:14 PM Catracho Mehta RN No [facility] 07-28-2014 Are you blind, or do you have serious difficulty seeing, even when wearing glasses No 07/28/2014 6:14 PM Catracho Mehta RN No [facility] 07-28-2014 Do you have serious difficulty walking or climbing stairs No 07/28/2014 6:14 PM Catracho Mehta RN No [facility] 07-28-2014 Do you have difficul ty dressing or bathing No 07/28/2014 6:14 PM Catracho Mehta RN No [facility] 07-28-2014 Because of a physica l, mental, or emotional condition, do you have difficulty doing errands alone such as visiting a physician's office or shopping No 07/28/2014 6:14 PM Catracho Mehta RN No [facility] Mental Status Date Assessment Result Facility 07-28-2014 Because of a physica l, mental, or emotional condition, do you have serious difficulty concentrating, remembering, or making decisions No 07/28/2014 6:14 PM Catracho Mehta RN No [facility] Clinical Notes 03-13-2020 to 11-19-2024 SEN Chen - 11/19/2024 4:20 PM SEN Boone - 09/09/2024 4:40 PM Amber Maguire PA-C - 08/30/2024 9:00 AM EDTPatient InstructionsPatient InstructionsPatient Instructions Note Date & Type Note Facility 11-19-2024 History of Present illness Narrative Subjective Patient ID: Yahir Barney is a 64 y.o. male who presents for 3 month (Pt is here today for 3 month fuv. Reports he did have blood work done needed for appointment. ). Patient presents for 3-month follow-up visit. Type 2 diabetes: Is controlled medication and diet. A1c now 5.6. Patient will start having 6-month appointments as of 3 months. He is feeling good overall. No complaints. Will repeat labs at next point. Seasonal allergies: Patient has worsening seasonal allergies. He has tried [id number] remedies and symptoms are worse at night. Will start him on Singulair in combination with OTC second-generation antihistamine Review of Systems Constitutional: Negative for chills, diaphoresis, fatigue and unexpected weight change. HENT: Negative for dental problem, tinnitus and trouble swallowing. Eyes: Negative for visual disturbance. Respiratory: Positive for cough. Negative for chest tightness, shortness of breath and wheezing. Cardiovascular: Negative for chest pain, palpitations and leg swelling. Gastrointestinal: Negative for abdominal pain, constipation, diarrhea, nausea and rectal pain. Endocrine: Negative for polydipsia, polyphagia and polyuria. Genitourinary: Negative for difficulty urinating, frequency and urgency. Musculoskeletal: Negative for arthralgias and myalgias. Skin: Negative for pallor and wound. Neurological: Negative for syncope, weakness, numbness and headaches. Psychiatric/Behavioral: Negative for suicidal ideas. The patient is not nervous/anxious. Objective BP 128/88 Pulse 67 Ht 1.772 m (5' 9.75) Wt 128 kg (283 lb 3.2 oz) SpO2 98% BMI 40.93 kg/m Physical Exam Vitals and nursing note reviewed. Constitutional: General: He is not in acute distress. Appearance: Normal appearance. HENT: Head: Normocephalic. Nose: Nose normal. Mouth/Throat: Mouth: Mucous membranes are moist. Pharynx: Oropharynx is clear. Eyes: General: No scleral icterus. Pupils: Pupils are equal, round, and reactive to light. Neck: Vascular: No carotid bruit. Cardiovascular: Rate and Rhythm: Normal rate and regular rhythm. Pulses: Normal pulses. Heart sounds: Normal heart sounds. No murmur heard. Pulmonary: Effort: Pulmonary effort is normal. No respiratory distress. Breath sounds: Normal breath sounds. No stridor. No wheezing, rhonchi or rales. Abdominal: General: Bowel sounds are normal. There is no distension. Palpations: Abdomen is soft. Tenderness: There is no abdominal tenderness. There is no right CVA tenderness or left CVA tenderness. Musculoskeletal: General: No swelling. Normal range of motion. Cervical back: Normal range of motion. Right lower leg: No edema. Left lower leg: No edema. Skin: General: Skin is warm and dry. Capillary Refill: Capillary refill takes less than 2 seconds. Neurological: General: No focal deficit present. Mental Status: He is alert and oriented to person, place, and time. Mental status is at baseline. Psychiatric: Mood and Affect: Mood normal. Behavior: Behavior normal. Thought Content: Thought content normal. Judgment: Judgment normal. Assessment/Plan Diagnoses and all orders for this visit: Allergy, initial encounter - montelukast (Singulair) 10 mg tablet; Take 1 tablet (10 mg) by mouth once daily at bedtime. Type 2 diabetes mellitus without complication, without long-term current use of insulin - Basic Metabolic Panel; Future - Albumin-Creatinine Ratio, Urine Random; Future - Hemoglobin A1C; Future documented in this encounter [facility] Work Phone: 09-09-2024 History of Present illness Narrative Associated Order(s): Injection tendon or ligament: L long A1 Subjective Patient ID: Yahir Barney is a 64 y.o. male who presents for Injections (Trigger finger injection left hand). Patient presents today for treatment of left third digit flexor tendonitis. Flexor tendinitis: Patient unable to fully extend third digit of left hand when he wakes in the morning daily he is able to eventually extend enough to be functional by the end of the day. Discussed treatment options at last visit, he has opted for injection. Injection performed, see procedure note. Patient ID: Travis Sinclair is a 64 y.o. male. Injection tendon or ligament: L long A1 for trigger finger on 09/09/2024 4:42 PM Indications: tendon swelling Details: 25 G needle, medial approach Medications: 10 mg triamcinolone acetonide 40 mg/mL; 0.25 mL lidocaine 10 mg/mL (1 %) Aspirate: 0 mL Consent was given by the patient. Immediately prior to procedure a time out was called to verify the correct patient, procedure, equipment, human resources support specialist and site/side marked as required. Patient was prepped and draped in the usual sterile fashion. Review of Systems Constitutional: Negative for chills, diaphoresis, fatigue and unexpected weight change. HENT: Negative for dental problem, tinnitus and trouble swallowing. Eyes: Negative for visual disturbance. Respiratory: Negative for chest tightness and shortness of breath. Cardiovascular: Negative for chest pain, palpitations and leg swelling. Gastrointestinal: Negative for abdominal pain, constipation, diarrhea, nausea and rectal pain. Endocrine: Negative for polydipsia, polyphagia and polyuria. Genitourinary: Negative for difficulty urinating, frequency and urgency. Musculoskeletal: Positive for joint swelling. Negative for arthralgias and myalgias. Skin: Negative for pallor and wound. Neurological: Negative for syncope, weakness, numbness and headaches. Psychiatric/Behavioral: Negative for suicidal ideas. The patient is not nervous/anxious. Objective BP 124/82 (BP Location: Left arm, Patient Position: Sitting) Pulse 71 Wt 125 kg (275 lb) SpO2 97% BMI 39.74 kg/m Physical Exam Constitutional: Appearance: Normal appearance. He is normal weight. HENT: Head: Normocephalic. Nose: Nose normal. Mouth/Throat: Mouth: Mucous membranes are moist. Eyes: Pupils: Pupils are equal, round, and reactive to light. Musculoskeletal: General: Swelling and tenderness present. Comments: Left 3rd digit, flexion Skin: General: Skin is warm and dry. Neurological: General: No focal deficit present. Mental Status: He is alert and oriented to person, place, and time. Mental status is at baseline. Psychiatric: Mood and Affect: Mood normal. Behavior: Behavior normal. Thought Content: Thought content normal. Judgment: Judgment normal. Assessment/Plan Diagnoses and all orders for this visit: Flexor tendinitis of hand Other orders - Injection tendon or ligament documented in this encounter [facility] Work Phone: 08-30-2024 History of Present illness Narrative Travis Barney is a 64 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 He presented in December 2013 with severe headaches and double vision and a notable visual field cut. MRI in Jan 2014 showed a tumor. He is s/p resection in 02/15/14. 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 He was treated after the procedure for hypopituitarism by Dr. Jones, and then by Dr. Hwang, and has been seeing Dr Sheffield since August 2016. He is currently on replacement with thyroid hormone, steroids, and testosterone, and GH. Pituitary MRI in 09/05 was stable Interim History: He is on ozempic for diabetes. His Hba1c was 5.5%. he has lost some weight but has hit a plateau- he has lost ~#35-40 His insurance may not pay for this anymore b/c his DM is so good. He doesn't want to stop this b/c is working so well. His BS is going too low at times. He may decrease the dose some Hypothyroid: Dose LT4: 200 daily Missed doses: none Symptoms: no tachycardia, no tremors. He did have some tachycardia- is on metoprolol for many years b/c of this. Hypogonadism Medication dose: 2 pumps daily Missed doses? None but has gone down to 1 pump a day to spread out for refills. He is feeling good overall. 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 He felt better on this- has a lot of [place] has insurance plans/rx plans. They need documentation that he needs the GH due to a medical condition Was on Humatrope 0.4 mg a day Adrenal insufficiency: Steroid dose: HC Missed any pills: have missed a few this week b/c of the stress, but not usually Stress dosing since last visit? In June-no issues with this. BP has been good overall. Vitamin D deficiency: Dose: 2000 units daily- doing well.. Social- is in [facility] for 8-9 days - had bilateral hip replacements 2 years ago- now having side effects- has had pelvic fx secondary to the hardware. Had repair surgery and had complications Objective: BP 136/80 (BP Location: Right arm, BP Position: Sitting) Pulse 77 Temp 97 F (36.1 C) (Infrared) Resp 16 Ht 1.753 m (5' 9.02) Wt 124.3 kg (274 lb) SpO2 98% BMI 40.44 kg/m Smoking Status Never Constitutional: well developed, no acute distress. Neck: Thyroid is palpable, not enlarged, mobile upon swallowing. No nodules. No lymphadenopathy. Head: normocephalic, atraumatic. Eyes: normal extraocular movements. no proptosis or lid lag. Cardiac: Normal S1 and S2, regular rate and rhythm, no murmurs gallops or rubs. Respiratory: Lungs are clear without crackles or wheezes. There is good air movement bilaterally. Extremities: no edema present. Neurological: DTRs are normal. There are no tremors of the hands. Cranial nerves grossly intact Skin: Skin is normal texture, temperature, and thickness. Labs Date FT4/TT3 IGF1 Testo/ ACTH vitD MRI 08/03 1.4/1.3 36 343 10.9 11.6 stable 03/04 1.2/1.4 145 549 5 03/06 1.6/1.06 62 326 <5.0 stable 09/04 1.3/1.0 47 441 <5.0 09/05 1.2/1 112 397 <5. 65 Stable 09/06 1.4/1.1 47 394 71 09/07 1.4/120 43 838 47 IMPRESSION and PLAN Travis Barney is a 64 y.o. male with oliveros-hypopituitarism after resection of a pituitary lesion in 2013. MRI was stable in 2022. Needs repeat in 2027 Joint pain- worse since off GH. Hopefully this will improve once he is back on GH. AI- doing well on HC - he will continue this dose. Hypothyroid- FT4 at goal. recheck again in 3 months to assure dose is accurate if patient continues to lose weight Patient is actively trying to lose weight. I discussed with patient that because LT4 is dosed by weight, we will likely need to recheck TSH with every #10-15 of weight loss. Patient understands and will let us know if loses #10-15 and we will check labs. Hypogonadism- Testosterone is slightly high, but ok overall. He got labs right after he applied his daily topical dose, so this will skew the results,. GH deficiency- off GH since 10/06- he felt better on it. His IGF1 levels are clearly low. He has new insurance now so we will try again to get this covered. He will get labs 3 months after restarting this. Follow up in 1 year. Patient to get labs locally 1 week prior to the appt. Over 47 minutes were spent with more than 50% total time face to face counseling which is outlined above, providing patient education for medication use, EMR review and entry, reviewing paper documents today, medication rx preparation / review and explaining recommendations to patient, delivering verbal and written instructions, and coordination of care documented in this encounter [facility] 08-30-2024 Instructions Pema Maguire PA-C - 08/30/2024 9:00 AM EDT Labs locally 3 months after starting growth hormone Follow up with [facility] in 1 year- patient to get labs locally 1 week prior documented in this encounter [facility] 08-19-2024 History of Present illness Narrative Subjective Patient ID: Yahir Barney is a 64 y.o. male who presents for Med Management (Left hand pain off/on). Patient presents today for medication management. Type 2 diabetes mellitus: Has been on Ozempic at 1 mg weekly. Has been having regular readings on his blood glucose monitor under 100 postprandial. Including some readings as low as the 50s while he is sleeping. Will reduce Ozempic to 0.5 weekly. Monitor and report any other hypoglycemic episodes. Follow-up in 3 months with new A1c and BMP Trigger finger: Reports left middle finger contracture and pain on palpation of palm. Will schedule follow-up appointment in 2 weeks to have trigger point injection. Review of Systems Constitutional: Negative for chills, diaphoresis, fatigue and unexpected weight change. HENT: Negative for dental problem, tinnitus and trouble swallowing. Eyes: Negative for visual disturbance. Respiratory: Negative for chest tightness and shortness of breath. Cardiovascular: Negative for chest pain, palpitations and leg swelling. Gastrointestinal: Negative for abdominal pain, constipation, diarrhea, nausea and rectal pain. Endocrine: Negative for polydipsia, polyphagia and polyuria. Hypoglycemic home blood glucose readings Genitourinary: Negative for difficulty urinating, frequency and urgency. Musculoskeletal: Positive for joint swelling (Left palm, third digit). Negative for arthralgias and myalgias. Skin: Negative for pallor and wound. Neurological: Negative for syncope, weakness, numbness and headaches. Psychiatric/Behavioral: Negative for suicidal ideas. The patient is not nervous/anxious. Objective BP 128/78 (BP Location: Left arm, Patient Position: Sitting) Pulse 71 Ht 1.772 m (5' 9.75) Wt 125 kg (276 lb) SpO2 99% BMI 39.89 kg/m Physical Exam Vitals and nursing note reviewed. Constitutional: General: He is not in acute distress. Appearance: Normal appearance. He is obese. HENT: Head: Normocephalic. Nose: Nose normal. Mouth/Throat: Mouth: Mucous membranes are moist. Pharynx: Oropharynx is clear. Eyes: General: No scleral icterus. Pupils: Pupils are equal, round, and reactive to light. Neck: Vascular: No carotid bruit. Cardiovascular: Rate and Rhythm: Normal rate and regular rhythm. Pulses: Normal pulses. Heart sounds: Normal heart sounds. No murmur heard. Pulmonary: Effort: Pulmonary effort is normal. No respiratory distress. Breath sounds: Normal breath sounds. No stridor. No wheezing, rhonchi or rales. Abdominal: General: Bowel sounds are normal. There is no distension. Palpations: Abdomen is soft. Tenderness: There is no abdominal tenderness. There is no right CVA tenderness or left CVA tenderness. Musculoskeletal: General: Tenderness (Left palm proximal to third digit) present. No swelling. Normal range of motion. Cervical back: Normal range of motion. Right lower leg: No edema. Left lower leg: No edema. Skin: General: Skin is warm and dry. Capillary Refill: Capillary refill takes less than 2 seconds. Neurological: General: No focal deficit present. Mental Status: He is alert and oriented to person, place, and time. Mental status is at baseline. Psychiatric: Mood and Affect: Mood normal. Behavior: Behavior normal. Thought Content: Thought content normal. Judgment: Judgment normal. Assessment/Plan Diagnoses and all orders for this visit: Type 2 diabetes mellitus without complication, without long-term current use of insulin (Multi) - semaglutide 0.25 mg or 0.5 mg (2 mg/3 mL) pen injector; Inject 0.5 mg under the skin 1 (one) time per week. - Basic Metabolic Panel; Future - Hemoglobin A1C; Future Familial hyperlipidemia - rosuvastatin (Crestor) 10 mg tablet; Take 1 tablet (10 mg) by mouth once daily at bedtime. Primary hypertension - metoprolol tartrate (Lopressor) 25 mg tablet; Take 0.5 tablets (12.5 mg) by mouth 2 times a day. Gastroesophageal reflux disease without esophagitis - esomeprazole (NexIUM) [address] capsule; Take 1 capsule (40 mg) by mouth once daily. documented in this encounter [facility] Work Phone: 06-29-2024 History of Present illness Narrative Subjective Patient ID: Yahir Barney is a 64 y.o. male who presents for 1 week follow up (PT is doing a virtual visit for the a 1 week fuv on an abscess. ). Virtual or Telephone Consent A telephone visit (audio only) between the patient (at the originating site) and the provider (at the distant site) was utilized to provide this telehealth service. Verbal consent was requested and obtained from Travis Barney on this date, 06/29/24 for a telehealth visit. Patient presents today for 1 week follow-up from skin infection. Cellulitis: Patient been previously treated and seen 1 week ago, base of wound culture antibiotics with clindamycin. He has 1 dose left. States the infection has mostly resolved. There is no more drainage, the wound is closed. Advised patient to complete antibiotic course and follow-up us with us if there is recurrent infection. Review of Systems Constitutional: Negative for chills, diaphoresis, fatigue and unexpected weight change. HENT: Negative for dental problem, tinnitus and trouble swallowing. Eyes: Negative for visual disturbance. Respiratory: Negative for chest tightness and shortness of breath. Cardiovascular: Negative for chest pain, palpitations and leg swelling. Gastrointestinal: Negative for abdominal pain, constipation, diarrhea, nausea and rectal pain. Endocrine: Negative for polydipsia, polyphagia and polyuria. Genitourinary: Negative for difficulty urinating, frequency and urgency. Musculoskeletal: Negative for arthralgias and myalgias. Skin: Negative for pallor and wound. Neurological: Negative for syncope, weakness, numbness and headaches. Psychiatric/Behavioral: Negative for suicidal ideas. The patient is not nervous/anxious. Objective There were no vitals taken for this visit. Physical Exam Neurological: General: No focal deficit present. Mental Status: He is alert and oriented to person, place, and time. Mental status is at baseline. Psychiatric: Mood and Affect: Mood normal. Behavior: Behavior normal. Thought Content: Thought content normal. Judgment: Judgment normal. Assessment/Plan Diagnoses and all orders for this visit: Abscess documented in this encounter [facility] Work Phone: 06-22-2024 History of Present illness Narrative Subjective Patient ID: Yahir Barney is a 64 y.o. male who presents for Lump on collar bone (Pt is here today for a lump on his right collar bone. Went to the [place] [facility] on 06/13/24 where they removed this, reports it is still draining and there is a smell sometimes. Every once in a while there is pain. Denies fever. Did put him on an abx. ). Patient presents today for evaluation of right neck/chest abscess. Was seen at [facility] 8 days ago. I&D performed in ER by physician. Placed on doxycycline. He is completed doxycycline the abscess is smaller than first reported by the physician ED note, approximately 1 cm x 2.5 cm the patient does report some serous drainage from the wound. The site is indurated, no streaking or tracking from the wound. Blood culture results obtained from [facility], shows gram-positive organism. Patient will be given 7-day course of clindamycin. He will follow-up with me in 1 week to assess effectiveness and possible extension of medication. Review of Systems Constitutional: Negative for chills, diaphoresis, fatigue and unexpected weight change. HENT: Negative for dental problem, tinnitus and trouble swallowing. Eyes: Negative for visual disturbance. Respiratory: Negative for chest tightness and shortness of breath. Cardiovascular: Negative for chest pain, palpitations and leg swelling. Gastrointestinal: Negative for abdominal pain, constipation, diarrhea, nausea and rectal pain. Endocrine: Negative for polydipsia, polyphagia and polyuria. Genitourinary: Negative for difficulty urinating, frequency and urgency. Musculoskeletal: Negative for arthralgias and myalgias. Skin: Positive for wound (Right chest). Negative for pallor. Neurological: Negative for syncope, weakness, numbness and headaches. Psychiatric/Behavioral: Negative for suicidal ideas. The patient is not nervous/anxious. Objective BP 124/84 Pulse 80 Ht 1.778 m (5' 10) Wt 123 kg (271 lb 9.6 oz) SpO2 100% BMI 38.97 kg/m Physical Exam Vitals and nursing note reviewed. Constitutional: General: He is not in acute distress. Appearance: Normal appearance. He is normal weight. HENT: Head: Normocephalic. Nose: Nose normal. Mouth/Throat: Mouth: Mucous membranes are moist. Pharynx: Oropharynx is clear. Eyes: Pupils: Pupils are equal, round, and reactive to light. Cardiovascular: Rate and Rhythm: Normal rate and regular rhythm. Pulses: Normal pulses. Heart sounds: Normal heart sounds. Pulmonary: Effort: Pulmonary effort is normal. Breath sounds: Normal breath sounds. Abdominal: General: Bowel sounds are normal. Palpations: Abdomen is soft. Musculoskeletal: General: Normal range of motion. Cervical back: Normal range of motion. Skin: General: Skin is warm and dry. Capillary Refill: Capillary refill takes less than 2 seconds. Comments: 1 x 2.5 cm abscess to right anterior chest, clavicular region Neurological: General: No focal deficit present. Mental Status: He is alert and oriented to person, place, and time. Mental status is at baseline. Psychiatric: Mood and Affect: Mood normal. Behavior: Behavior normal. Thought Content: Thought content normal. Judgment: Judgment normal. Assessment/Plan Diagnoses and all orders for this visit: Abscess - clindamycin (Cleocin) 300 mg capsule; Take 1 capsule (300 mg) by mouth 4 times a day for 14 days. documented in this encounter [facility] Work Phone: 02-17-2024 History of Present illness Narrative Subjective Patient ID: Yahir Barney is a 63 y.o. male who presents for Med Management (Soreness in neck). HPI Having some less headaches this time, stating about 5 per month and no worse loss of memory in the 6 months. The LOPEZ is all over. His associate financial planner did an MRI in 08/16/22 and no abnormality seen. No focal numbness or weakness. No DV or MAGNOLIA. Saw eye doctor but nothing noted. Tylenol takes edge off. Naprosyn before bed helps some when needed. Photophobia not an issue unless first in AM. No nausea. No particular reason. Pain in the neck in AM and then stiff all day. Soreness years ago. No radiation to arms. Pain to turn to either side. Has been a few weeks. No injury just started one morning. Back pain of thoracolumbar region - has been minimal. Takes tylenol or naprosyn for back pain. Diabetes type II - A1C of 5.1. States he monitors BG 3-4 times a week. Sugars are typically running 80s and rarely in low 100s. Getting down to 70s and feeling that. On Ozempic 1mg. Poor appetite and greasy stools are better since he had Covid. Weight is down another 6. No other meds. May need hs snack. Chronic rhinitis - had been doing OK after Kenalog shot in September. No regular meds. OTC meds prn. Denies runny nose, nasal congestion or sinus pain today. Had Covid and had syncope in June. Recovered after Paxlovid CKD II GFR back to normal at 67 this time. No blood. No NSAIDS routinely. No new meds. Colon polyps - March 272019 clear. Hyperplastic in 2017. 5 years Essential familial hyperlipidemia - Med works well without side effects. Lipid panel on 02/12/24 revealed HDL of 31, triglycerides of 137 which previously was 264 last year. Obesity - BMI 38.6.. Has stopped pop. Active. Weight stable back on Growth Hormone and more active. Down from 308 to 275 to 269 Fatigue And sleep apnea - much better when on GH. Not able to get currently due to non Coverage. Wears CPAP every night, states he recently got new CPAP machine. Can note a difference GERD (gastroesophageal reflux disease) - on PPI every 3 days and when he takes extra cortisone. No HB, Melena, dysphagia, or hematochezia. History of benign pituitary tumor - Dr Sheffield manages, last seen 08/22/23. Good labs last time. Annual HTN - Hypertension - No Chest pain, Dyspnea, palpitations, numbness, weakness, edema, claudications, or double vision/ loss of vision. Low testosterone - on supplement and good level 394 last time on 08/22/23. PSA good. Polyarthralgia - much better but still has achy days especially when off of GH. Secondary hypothyroidism - on supplement and good level of Free T4 and free T3 last August Vitamin D deficiency supplement at [facility] Good level last time. OTC Vitamin D. 71 on . PSA 02/11/24 which revealed 0.86 Colonoscopy 03/27/20 due in 2024. Review of Systems Objective BP 126/82 (BP Location: Left arm, Patient Position: Sitting) Pulse 71 Wt 122 kg (269 lb) SpO2 98% BMI 38.60 kg/m Physical Exam Vitals reviewed. Constitutional: General: He is not in acute distress. Appearance: Normal appearance. HENT: Head: Normocephalic. Right Ear: Tympanic membrane, ear canal and external ear normal. Left Ear: Tympanic membrane normal. Nose: Nose normal. Mouth/Throat: Mouth: Mucous membranes are moist. Pharynx: Oropharynx is clear. Eyes: Extraocular Movements: Extraocular movements intact. Conjunctiva/sclera: Conjunctivae normal. Pupils: Pupils are equal, round, and reactive to light. Neck: Vascular: No carotid bruit. Cardiovascular: Rate and Rhythm: Normal rate and regular rhythm. Pulses: Normal pulses. Heart sounds: Normal heart sounds. No murmur heard. Pulmonary: Effort: Pulmonary effort is normal. No respiratory distress. Breath sounds: Normal breath sounds. Abdominal: General: Abdomen is flat. Bowel sounds are normal. There is no distension. Palpations: Abdomen is soft. There is no mass. Tenderness: There is no abdominal tenderness. Musculoskeletal: Cervical back: Normal range of motion. Rigidity (sharp pain with rotation and tipping either way with limited rotation.) and tenderness (left paracervical) present. Lymphadenopathy: Cervical: No cervical adenopathy. Skin: General: Skin is warm and dry. Findings: No rash. Neurological: General: No focal deficit present. Mental Status: He is alert and oriented to person, place, and time. Psychiatric: Mood and Affect: Mood normal. Thought Content: Thought content normal. Judgment: Judgment normal. Assessment/Plan Diagnoses and all orders for this visit: Chronic allergic rhinitis Type 2 diabetes mellitus without complication, without long-term current use of insulin (Multi) - Follow Up In Primary Care - Established; Future Class 2 severe obesity due to excess calories with serious comorbidity and body mass index (BMI) of 39.0 to 39.9 in adult (Multi) Adenomatous polyp of colon, unspecified part of colon Familial hyperlipidemia Frequent headaches Gastroesophageal reflux disease without esophagitis Primary hypertension Panhypopituitarism (Multi) Multiple papillomata Low back pain of thoracolumbar region with sciatica Low testosterone Secondary hypothyroidism Pituitary adenoma (Multi) Polyarthralgia Obstructive sleep apnea syndrome Vitamin D deficiency Arthropathy of cervical facet joint - XR cervical spine 2-3 views; Future - celecoxib (CeleBREX) 200 mg capsule; Take 1 capsule (200 mg) by mouth once daily. Other orders - Follow Up In Primary Care - Established documented in this encounter [facility] Work Phone: 12-09-2023 History of Present illness Narrative Patient verified full name and He was diagnosed with obstructive sleep apnea at outside center in 2000 (RDI was 11.0) and using auto CPAP regularly. He continues to use CPAP nightly. He is using a nasal pillows mask (describes as P10). He does get some mask leak. He gets occasional dry mouth. The pressure is comfortable. He is not gasping at night. He does get some dry mouth. He has adjusted the humidifier. He is not snoring with it. He continues to note benefit with CPAP. He can't sleep without it. He continues to use [employer] for supplies. He got a new machine December 2022. Changes in medical history since last visit: no changes. +weight loss and improvement on A1C since started on ozempic Wt Readings from Last 3 Encounters: 12/09/23 124.3 kg (274 lb) 08/22/23 126.2 kg (278 lb 4.8 oz) 08/16/22 136.1 kg (300 lb) 12/09/2023 8:00 AM Sleep Medicine Patient Reported Outcomes ESS (manually scored) 10 FOSQ (manually scored) 18 Sleep Disorders [place] Sleepiness Scale: 10 FOSQ Score: 18 His previous [place] Sleepiness Scale was 12/24points. Denies falling asleep while driving. Download Data ([employer] ) Auto CPAP: 14-16 cm H2O Total days used: 89/90 % used days >= 4 hours: 99% Average hours used per day (when used): 7:40 Median pressure: 14.0 cm H2O 95th percentile: 14.6 cm H2O Maximum pressure: 15.0 cm H2O Median leak: 3.4 L/min 95th percentile leak: 46.2 L/min Residual AHI: 0.7 Data reviewed with patient and scanned into chart. Diagnostic Review PSG in 2000 showed an RDI of 11.0 at outside center. Titration study 08/11/15 recommended CPAP 14 cm H2O. Weight 312 lbs. Allergies is allergic to sulfamethoxazole-trimethoprim. Medications He has a current medication list which includes the following prescription(s): aspirin, vitamin d, esomeprazole, hydrocortisone, levothyroxine, metoprolol, rosuvastatin, semaglutide (1 mg/dose), and testosterone. Review of Systems As noted in [place] No restless legs or kicking at night. Patient reported ROS Weight has had [ lbs gained], [ lbs lost] in the last year. Patient reported positive symptoms in the past month include: All other systems are negative. Past Medical History He has a past medical history of Brain tumor, Essential hypertension, benign, Migraine, and Pituitary adenoma. Past Social History He reports that he has never smoked. He has never used smokeless tobacco. He reports that he does not drink alcohol and does not use drugs. Physical Exam BP 110/68 (BP Location: Right arm, BP Position: Sitting) Pulse 86 Temp 97.7 F (36.5 C) (Infrared) Ht 1.753 m (5' 9) Wt 124.3 kg (274 lb) SpO2 96% Comment: RA BMI 40.46 kg/m Smoking Status Never Body mass index is 40.46 kg/m . GENERAL: alert and oriented, in no apparent distress LUNGS: respirations regular and unlabored NEURO: no tremor, alert and oriented SKIN: no redness, rashes, or breakdown from mask PSYCH: normal affect ASSESSMENT/PLAN: The encounter diagnosis was DONTRELL (obstructive sleep apnea). DONTRELL well treated on auto CPAP 14-16 cm H2O. He is compliant and benefiting from CPAP use. 1. He is to continue using auto CPAP 14-16 cm H2O. 2. Encouraged regular continued nightly use of the CPAP machine. 3. 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 4. He was reminded of the importance of weight loss in treating sleep apnea. 5.He should use caution with respiratory suppressants as they could worsen nocturnal hypoxemia and sleep disordered breathing. 6. We will follow up in clinic with him in 1 year. He is to contact me if he has any questions prior to that time. documented in this encounter [facility] 12-09-2023 Instructions SEN Harrison - 12/09/2023 8:30 AM EDT DONTRELL education: You have obstructive sleep apnea (DONTRELL): 1. Obstructive sleep apnea (DONTRELL) is a condition where the upper airway narrows or closes intermittently during sleep. This can lead to drops in your oxygen levels during sleep, arousals from sleep, and excessive daytime sleepiness. 2. DONTRELL is associated with increased risk of hypertension, cardiac disease, myocardial infarction, stroke, and poor blood sugar control. Treating your DONTRELL can decrease these risks. 3. Weight loss does improve sleep apnea. It is important to have a healthy diet and an exercise program. 4. Alcohol and sedating medications can make DONTRELL worse and should be avoided. 5. If you have surgery or are hospitalized, tell your doctor that you have DONTRELL and bring your CPAP to the hospital. 6. If you are drowsy or sleepy, you should not drive. If you are driving and become drowsy or sleepy, you should pullman clerk to a safe place. Below are our drowsy driving tips. Drowsy Driving Tips These suggestions will help prevent you from the risk of drowsy driving. 1. If you feel tired or drowsy do not drive. Sleepiness is a major cause of motor vehicle accidents and accounts for 40% of all fatal crashes reported on the [facility]. No matter how much you think you can control sleepiness, you can't. 2. Ensure you follow your doctor's advice about the treatment for your sleep disorder. For example, if you have sleep apnea and use CPAP, ensure you use it fully the night before your trip. 3. Get a good night's sleep before driving. Do not reduce your sleep time if you plan a long drive the next day. Get to bed early and do not stay up late packing. 4. Avoid alcohol both the night before your trip and the during your trip. Alcohol will disrupt sleep and make you more tired the next day. Sleepiness and alcohol are additive in increasing impairment of your driving ability. 5. Avoid any sedative medications, including sedative antihistamines that are often contained in cold or allergy medications, the night before you drive as they may have long lasting effects the next day. 6. Travel during non-sleeping hours. Accidents due to sleepiness are more common during the nighttime hours. 7. If sleepy, stop and rest. Drink coffee, walk around or have a brief nap in your car if you are sleepy. Have a 10-15 minute break after every [address] 8[address] with a printed circuit layout taper. Share the driving. Relax in the back seat until it is your time to share the driving again. documented in this encounter [facility] 08-22-2023 History of Present illness Narrative Travis Barney is a 63 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 He presented in December 2013 with severe headaches and double vision and a notable visual field cut. MRI in Jan 2014 showed a tumor. Was referred initially to [facility] but things didn't work out there so he came here. He had his surgery here on 02/15/14. 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 He was treated after the procedure for hypopituitarism by Dr. Jones, and then by Dr. Hwang, and has been seeing Dr Sheffield since August 2016. He is currently on replacement with thyroid hormone, steroids, and testosterone, and GH. Pituitary MRI in 09/05 was stable Interim History: Dm - is now on ozempic. Hba1c went from 7.7% to 5.9%. Has lost #30 Feels good on this He's keeping busy at work Hypothyroid: Dose LT4: 200 daily Missed doses: Symptoms: Hypogonadism Medication dose: 2 pumps daily Missed doses? none Growth hormone deficiency: Dose of GH: hasn't had since 11/05 secondary to no teacher assistant programs to help cover the cost. He felt better on this. notices he is not as energetic off this. He has more joint pain- this is the worse- diffuse joints. Adrenal insufficiency: Steroid dose: HC Missed any pills: none Vitamin D deficiency: Dose: 4000 units daily Objective: BP 139/83 (BP Location: Right arm, BP Position: Sitting) Pulse 71 Temp 97 F (36.1 C) (Infrared) Resp 18 Ht 1.753 m (5' 9) Wt 126.2 kg (278 lb 4.8 oz) SpO2 98% BMI 41.10 kg/m Smoking Status Never Constitutional: well developed, no acute distress. Head: normocephalic, atraumatic. Eyes: normal extraocular movements. no proptosis or lid lag. Cardiac: Normal S1 and S2, regular rate and rhythm, no murmurs gallops or rubs. Respiratory: Lungs are clear without crackles or wheezes. There is good air movement bilaterally. Extremities: no edema present. Neurological: DTRs are normal. There are no tremors of the hands. Cranial nerves grossly intact Skin: Skin is normal texture, temperature, and thickness. Labs Date FT4/TT3 IGF1 Testo/E2 ACTH vitD MRI 08/03 1.4/1.3 36 343 10.9 11.6 stable 03/04 1.2/1.4 145 549 5 03/06 1.6/1.06 62 326 <5.0 stable 09/04 1.3/1.0 47 441 <5.0 09/05 1.2/1 112 397 <5. 65 Stable All the above performed and documented by Pema Maguire PA-C. See Dr Leo Sheffield note for complete physical exam, assessment and Plan. Assessment and plan as noted below was developed by Dr Sheffield. I spent 8 minutes with patient in face to face counseling IMPRESSION and PLAN Travis Barney is a 63 y.o. 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 He can try taking OTC Condroitin sulfate to see if this helps with the joint pain AI- doing well on HC - no change to dose Hypothyroid- TFT's pending. Will adjust LT4 if needed. Hypogonadism- labs pending today. Will adjust testosterone if needed pending labs GH deficiency- off GH since 10/06- he felt better on it. We can continue to re-address yearly to see if his insurance will eventually cover this. Perhaps when he gets on medicare at age 67 Vitamin D def- labs pending today. Follow up in 1 year with labs prior ENDOCRINOLOGY ATTENDING Travis Barney is a 63 y.o. 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 He was treated after the procedure for hypopituitarism by Dr. Jones, and then by Dr. Hwang, and has been seeing me since August 2016. He is currently on replacement with thyroid hormone, steroids, and testosterone, and GH, although hasn't been on GH recently because of insurance issues, despite the fact that the treatment is CLEARLY INDICATED for his diagnosis of oliveros-hypopit. At today's visit, he was seen with Pema Maguire PA-C. I agree with the history that she describes, which is notable for an increase in symptoms (mostly fatigue and poor energy) off the GH. He is also currently on Ozempic which has notably reduced both his weight and his HbA1C. I independently examined him and confirmed the findings described in Pema's note. Briefly, the exam is generally unremarkable, without clear evidence of hormonal dysfunction. I note that there are no exam findings that would indicate GH deficiency. Studies: Prior labs are shown in Pema's note. From today: Component Latest Ref Rng 08/22/2023 SODIUM 135 - 145 mmol/L 140 POTASSIUM 3.5 - 5.0 mmol/L 4.3 CHLORIDE 98 - 108 mmol/L 104 BUN 7 - 25 mg/dL 17 Creatinine 0.70 - 1.30 mg/dL 1.16 GLUCOSE 70 - 99 mg/dL 99 BILIRUBIN, TOTAL <1.5 mg/dL 0.6 Albumin 3.5 - 5.0 g/dL 4.5 PROTEIN, TOTAL 6.4 - 8.3 g/dL 7.4 AST 10 - 39 U/L 21 ALKALINE PHOSPHATASE 32 - 126 U/L 80 CALCIUM 8.6 - 10.5 mg/dL 10.0 CARBON DIOXIDE (CO2) 21 - 31 mmol/L 28 ALT 10 - 52 U/L 25 BUN/CREA RATIO 15 OSMOLALITY (CALC) 278 - 305 mOsm/kg 295 ANION GAP 7 - 17 mmol/L 12 eGFR, CKD-EPI, Male >=60 mL/min/1.73m2 72 HEMOGLOBIN A1C 4.7 - 5.6 % 5.7 (H) Estimated Average Glucose mg/dL 117 T4 FREE 0.89 - 1.76 ng/dL 1.47 INSULIN-LIKE GROWTH FACTOR 1 51.0 - 209.0 ng/mL 47.1 (L) TESTOSTERONE 240 - 950 ng/dL 394 T3, TOTAL 0.60 - 1.81 ng/mL 1.19 VITAMIN D 25 HYDROXY 30.0 - 100.0 ng/mL 71.0 IMPRESSION and PLAN Travis Barney is a 63 y.o. male with oliveros-hypopituitarism after resection of a pituitary lesion many years ago. He remains on steroid replacement, L-T4, and testosterone, and each of these hormone tests are well within normal. There is no value in measuring TSH or ACTH, as these will always be low. Electrolytes are looking good. For all of these hormonal axes, no changes are needed. In terms of the GH, his IGF1 is low as expected, which completely fits his GH deficient state, which includes symptoms. I suggested he could try chondroitin sulfate OTC tablets, as this may help with joint pain. Really what we need is to figure out a way for him to get GH back. Will continue to work on this. In other news, HbA1C remains excellent on the GLP1 therapy. Vitamin D is also in good shape--he can probably cut back to 2000 U daily. Overall, Mr Barney is doing very well at present. RTC in 1 year would be appropriate but we will keep him posted if we can figure out anything with the . documented in this encounter [facility] 08-22-2023 Instructions CAROLEE Watkins - 08/22/2023 10:40 AM EST Trial Condroitin for joint pain Follow up with Pema Maguire in 1 year - can be video or in person documented in this encounter [facility] 08-14-2023 History of Present illness Narrative Subjective Patient ID: Yahir Barney is a 63 y.o. male who presents for Med Management. Diabetes He has type 2 diabetes mellitus. MedicAlert identification noted. The initial diagnosis of diabetes was made 6 months ago. Pertinent negatives for hypoglycemia include no confusion, dizziness, headaches, hunger, mood changes, nervousness/anxiousness, pallor, seizures, sleepiness, speech difficulty, sweats or tremors. Associated symptoms include weight loss. Pertinent negatives for diabetes include no blurred vision, no chest pain, no fatigue, no foot paresthesias, no foot ulcerations, no polydipsia, no polyuria, no visual change and no weakness. Pertinent negatives for hypoglycemia complications include no blackouts, no hospitalization, no nocturnal hypoglycemia, no required assistance and no required glucagon injection. Symptoms are stable. Pertinent negatives for diabetic complications include no CVA, heart disease, impotence, nephropathy, peripheral neuropathy, PVD or retinopathy. Risk factors for coronary artery disease include family history and obesity. Current diabetic treatment includes oral agent (monotherapy). He is compliant with treatment most of the time. He is currently taking insulin pre-breakfast. Insulin injections are given by patient. Rotation sites for injection include the abdominal wall and thighs. His weight is stable. He has not had a previous visit with a dietitian. He monitors urine at home 1-2 x per week. Blood glucose monitoring compliance is good. There is no change in his home blood glucose trend. His breakfast blood glucose is taken between 5-6 am. His breakfast blood glucose range is generally 90-110 mg/dl. He does not see a injection molding machine setter.Eye exam is current. Having some less headaches this time, stating about 5 per month and no worse loss of memory in the 6 months. The LOPEZ is all over. His associate financial planner did an MRI in 08/16/22 and no abnormality seen. No focal numbness or weakness. No DV or MAGNOLIA. Saw eye doctor but nothing noted. Tylenol takes edge off. Naprosyn before bed helps some when needed. Photophobia not an issue unless first in AM. No nausea. No particular reason. Back pain of thoracolumbar region - has been minimal. Takes tylenol or naprosyn for back pain. Diabetes type II - A1C of 5.9. , o. States he monitors BG 3-4 times a week. Sugars are typically running 90s to low 100s with few outliers in 130s-150s per his log in last 90 days when he was sucking on cough drops and was on Decadron. On Ozempic 1mg. Poor appetite and greasy stools are better since he had Covid. Weight is down another 12. Chronic rhinitis - had been doing OK after Kenalog shot in September. No regular meds. OTC meds prn. Denies runny nose, nasal congestion or sinus pain today. Had Covid and had syncope in June. Recovered after Paxlovid CKD II GFR back to normal at 73 this time. No blood. No NSAIDS routinely. No new meds. Colon polyps - March 272019 clear. Hyperplastic in 2017. 5 years Essential familial hyperlipidemia - Med works well without side effects. Lipid panel on 02/10/23 revealed HDL of 32, triglycerides of 166 which previously was 264 10 months ago. So will watch carbs. Obesity - BMI 39.46. Has stopped pop. Active. Weight stable back on Growth Hormone and more active. Down from 308 to 275. Fatigue - much better when on GH. Not able to get currently due to non Coverage. Wears CPAP every night, states he recently got new CPAP machine. Can note a difference GERD (gastroesophageal reflux disease) - on PPI every 3 days and when he takes extra cortisone. Has been daily since Covid but will taper back . No HB, Melena, dysphagia, or hematochezia. History of benign pituitary tumor - Dr Sheffield manages, last seen 08/16/22. Good labs last time. Annual HTN - Hypertension - No Chest pain, Dyspnea, palpitations, numbness, weakness, edema, claudications, or double vision/ loss of vision. Low testosterone - on supplement and good level 397 last time on 08/16/22. To go soon. Polyarthralgia - much better but still has achy days especially when off of GH. Secondary hypothyroidism - on supplement and good level of Free T4 and free T3. To check soon Sleep apnea - CPAP and works well Vitamin D deficiency supplement at Noelle Good level last time. OTC Vitamin D. 57 on 10/07/22. PSA 10/07/22 which revealed 1.03. Colonoscopy 03/27/20 due in 2024. Review of Systems Constitutional: Positive for weight loss. Negative for fatigue. Eyes: Negative for blurred vision. Cardiovascular: Negative for chest pain. Endocrine: Negative for polydipsia and polyuria. Genitourinary: Negative for impotence. Skin: Negative for pallor. Neurological: Negative for dizziness, tremors, seizures, speech difficulty, weakness and headaches. Psychiatric/Behavioral: Negative for confusion. The patient is not nervous/anxious. Objective BP 146/80 (BP Location: Left arm, Patient Position: Sitting) Pulse 83 Ht 1.778 m (5' 10) Wt 125 kg (275 lb) SpO2 97% BMI 39.46 kg/m Physical Exam Vitals reviewed. Constitutional: General: He is not in acute distress. Appearance: Normal appearance. He is obese. HENT: Head: Normocephalic. Right Ear: Tympanic membrane, ear canal and external ear normal. Left Ear: Tympanic membrane, ear canal and external ear normal. Nose: Nose normal. Mouth/Throat: Mouth: Mucous membranes are moist. Pharynx: Oropharynx is clear. Eyes: Extraocular Movements: Extraocular movements intact. Conjunctiva/sclera: Conjunctivae normal. Pupils: Pupils are equal, round, and reactive to light. Neck: Vascular: No carotid bruit. Cardiovascular: Rate and Rhythm: Normal rate and regular rhythm. Pulses: Normal pulses. Heart sounds: Normal heart sounds. No murmur heard. Pulmonary: Effort: Pulmonary effort is normal. No respiratory distress. Breath sounds: Normal breath sounds. Abdominal: General: Abdomen is flat. Bowel sounds are normal. There is no distension. Palpations: Abdomen is soft. There is no mass. Tenderness: There is no abdominal tenderness. Musculoskeletal: Cervical back: Normal range of motion and neck supple. No tenderness. Lymphadenopathy: Cervical: No cervical adenopathy. Skin: General: Skin is warm and dry. Findings: No rash. Neurological: General: No focal deficit present. Mental Status: He is alert and oriented to person, place, and time. Psychiatric: Mood and Affect: Mood normal. Thought Content: Thought content normal. Judgment: Judgment normal. Assessment/Plan Diagnoses and all orders for this visit: Healthcare maintenance - Prostate Specific Antigen, Screen; Future Type 2 diabetes mellitus without complication, without long-term current use of insulin ([facility]) - Follow Up In Primary Care - Established - Hemoglobin A1C; Future - Comprehensive Metabolic Panel; Future - Lipid Panel; Future Primary hypertension - metoprolol tartrate (Lopressor) 25 mg tablet; Take 0.5 tablets (12.5 mg) by mouth 2 times a day. 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 male who presents for Med Management. Having some less headaches this time, stating about 5 per month and no worse loss of memory in the 6 months. The LOPEZ is all over. His associate financial planner did an MRI in 08/16/22 and no abnormality seen. No focal numbness or weakness. No DV or MAGNOLIA. Saw eye doctor but nothing noted. Tylenol takes edge off. Naprosyn before bed helps some when needed. Photophobia not an issue unless first in AM. No nausea. No particular reason. Back pain of thoracolumbar region - has been minimal. Takes tylenol or naprosyn for back pain. Diabetes type II - new A1C of 5.8 on 02/04/23, was 7.7 5 months ago. States he monitors BG 3-4 times a week. Sugars are typically running 90s to low 100s with few outliers in 130s-150s per his log in last 90 days. On Ozempic 1mg. States he is experiencing side effects of Ozempic are no appetite, nausea and states he is having BM once daily but complains that bowel movements are greasy and hard to clean up, stating his bottom is irritated. Denies diarrhea, stating bowel movements are formed. States he has experienced these symptoms since the initiation of the Ozempic. For now Chronic rhinitis - had been doing OK after Kenalog shot in September. No regular meds. OTC meds prn. Denies runny nose, nasal congestion or sinus pain today. CKD II GFR back to normal at 80 in August, and 70 on 02/04/23. Creatinine at 1.16 on 02/04/23. No blood. No NSAIDS routinely. No new meds. Colon polyps - March 272019 clear. Hyperplastic in 2017. 5 years Essential familial hyperlipidemia - Med works well without side effects. Lipid panel on 02/10/23 revealed HDL of 32, triglycerides of 166 which previously was 264 10 months ago. So will watch carbs. Extreme obesity - BMI 40.60. Has stopped pop. Active. Weight stable back on Growth Hormone and more active. Down from 308 to 287. BMI was 43. Fatigue - much better when on GH. But not sleeping well and sees sleep med yearly. Wears CPAP every night, states he recently got new CPAP machine. GERD (gastroesophageal reflux disease) - on PPI every 3 days and when he takes extra cortisone. No HB, Melena, dysphagia, or hematochezia. History of benign pituitary tumor - Dr Sheffield manages, last seen 08/16/22. Good labs last time. Annual HTN - Hypertension - No Chest pain, Dyspnea, palpitations, numbness, weakness, edema, claudications, or double vision/ loss of vision. Low testosterone - on supplement and good level 397 last time on 08/16/22. Polyarthralgia - much better but still has achy days especially when off of GH. Secondary hypothyroidism - on supplement and good level of Free T4 and free T3. Sleep apnea - CPAP and works well Vitamin D deficiency supplement at Noelle Good level last time. OTC Vitamin D. 57 on 10/07/22. PSA 10/07/22 which revealed 1.03. Colonoscopy 03/27/20 due in 2024. Review of Systems Constitutional: Negative for fatigue. Cardiovascular: Negative for chest pain. Endocrine: Negative for polydipsia, polyphagia and polyuria. Skin: Negative for pallor. Neurological: Negative for dizziness, tremors, seizures, speech difficulty, weakness and headaches. Psychiatric/Behavioral: Negative for confusion. The patient is not nervous/anxious. Objective BP 136/82 (BP Location: Left arm, Patient Position: Sitting) Pulse 72 Wt 130 kg (287 lb) SpO2 95% BMI 40.60 kg/m Physical Exam Constitutional: Appearance: Normal appearance. He is obese. HENT: Head: Normocephalic. Right Ear: Tympanic membrane, ear canal and external ear normal. Left Ear: Tympanic membrane, ear canal and external ear normal. Mouth/Throat: Mouth: Mucous membranes are moist. Eyes: Conjunctiva/sclera: Conjunctivae normal. Cardiovascular: Rate and Rhythm: Normal rate and regular rhythm. Pulses: Normal pulses. Heart sounds: Normal heart sounds. Pulmonary: Effort: Pulmonary effort is normal. Breath sounds: Normal breath sounds. Abdominal: General: Bowel sounds are normal. Palpations: Abdomen is soft. Comments: Protuberant Musculoskeletal: General: Normal range of motion. Cervical back: Normal range of motion and neck supple. Skin: General: Skin is warm and dry. Neurological: Mental Status: He is alert and oriented to person, place, and time. Psychiatric: Mood and Affect: Mood normal. Thought Content: Thought content normal. Judgment: Judgment normal. Assessment/Plan Problem List Items Addressed This Visit Chronic allergic rhinitis Colon polyp Familial hyperlipidemia Frequent headaches GERD (gastroesophageal reflux disease) History of benign pituitary tumor HTN (hypertension) Low testosterone Morbid obesity with BMI of 40.0-44.9, adult (CMS/HCC) Panhypopituitarism (CMS/HCC) Pituitary adenoma (CMS/HCC) Polyarthralgia Secondary hypothyroidism Sleep apnea Type 2 diabetes mellitus without complication, without long-term current use of insulin ([facility]) - Primary Relevant Orders Comprehensive Metabolic Panel Hemoglobin A1C Follow Up In Primary Care - Established Vitamin D deficiency documented in this encounter [facility] Work Phone: 10-07-2022 History of Present illness Narrative Subjective Patient ID: Yahir Barney is a 62 y.o. male who presents for Med Management (Wants Kenalog for allergies, discuss HgbA1c). HPI Having some less headaches this time and no worse loss of memory in the 6 months The LOPEZ is all over. Can wake at hs. His associate financial planner did an MRI and no abnormality seen. No focal numbness or weakness. No DV or MAGNOLIA. Saw eye doctor but nothing noted. Tylenol takes edge off. Naprosyn before bed helps some. Photophobia not an issue unless first in AM. No nausea. Now more on occasion. No particular reason. Back pain of thoracolumbar region - has been minimal now that back on growth hormone. Diabetes type II - new A1C of 7.7. So will have him check sugars. Start Ozempic 0.25 to 0.5. Chronic rhinitis - had been doing OK after Kenalog shot in November. Ready for it now. No regular meds. OTC meds prn. Had sinusitis in December CKD II GFR back to normal at 80 in August. Creatinine down to 1.06. No blood. No NSAIDS. No new meds. Some increase in protein Colon polyps - March 272019 clear. Hyperplastic in 2017. 5 years Essential familial hyperlipidemia - Med works well without side effects. CMP WNL at [facility] last time and lipids good last time except TG of 264. So will watch carbs. Extreme obesity - BMI 43 Has stopped pop. Active. Weight was down 7 and stable back on Growth Hormone and more active. Fatigue - much better when on GH. But not sleeping well and will see sleep med later this month. GERD (gastroesophageal reflux disease) - on PPI every 3 days and when he takes extra cortisone. No HB, Melena, dysphagia, or hematochezia. History of benign pituitary tumor - Dr Sheffield manages. Good labs last time. Annual HTN - Hypertension - No Chest pain, Dyspnea, palpitations, numbness, weakness, edema, claudications, or double vision/ loss of vision. Low testosterone - on supplement and good level 441 last time. Polyarthralgia - much better but still has achy days especially when off of GH. Off of gabapentin Secondary hypothyroidism - on supplement and good level of Free T4 and free T3. Sleep apnea - CPAP and works well Vitamin D deficiency supplement at Noelle Good level last time. OTC Vitamin D. 57 today PSA 10/07/22 Colonoscopy 03/27/20 due in 2024. Review of Systems Objective BP 136/82 (BP Location: Left arm, Patient Position: Sitting) Pulse 73 Ht 1.791 m (5' 10.5) Wt 140 kg (308 lb) SpO2 96% BMI 43.57 kg/m Physical Exam Vitals reviewed. Constitutional: General: He is not in acute distress. Appearance: Normal appearance. He is obese. HENT: Head: Normocephalic. Right Ear: Tympanic membrane normal. Left Ear: Tympanic membrane normal. Nose: Nose normal. Mouth/Throat: Pharynx: Oropharynx is clear. Eyes: Extraocular Movements: Extraocular movements intact. Conjunctiva/sclera: Conjunctivae normal. Pupils: Pupils are equal, round, and reactive to light. Neck: Vascular: No carotid bruit. Cardiovascular: Rate and Rhythm: Normal rate and regular rhythm. Pulses: Normal pulses. Heart sounds: Normal heart sounds. No murmur heard. Pulmonary: Effort: Pulmonary effort is normal. No respiratory distress. Breath sounds: Normal breath sounds. Abdominal: General: Bowel sounds are normal. There is distension. Palpations: Abdomen is soft. There is no mass. Tenderness: There is no abdominal tenderness. Musculoskeletal: Cervical back: Normal range of motion and neck supple. No tenderness. Lymphadenopathy: Cervical: No cervical adenopathy. Skin: General: Skin is warm and dry. Findings: No rash. Neurological: General: No focal deficit present. Mental Status: He is alert and oriented to person, place, and time. Psychiatric: Mood and Affect: Mood normal. Thought Content: Thought content normal. Judgment: Judgment normal. Assessment/Plan Problem List Items Addressed This Visit Chronic allergic rhinitis Colon polyp Familial hyperlipidemia Frequent headaches - Primary GERD (gastroesophageal reflux disease) History of benign pituitary tumor Low back pain of thoracolumbar region with sciatica Low testosterone Panhypopituitarism (CMS/HCC) Polyarthralgia Secondary hypothyroidism Type 2 diabetes mellitus without complication, without long-term current use of insulin (CMS/HCC) Relevant Medications blood-glucose meter misc blood sugar diagnostic (Blood Glucose Test) strip lancets [facility] [place] semag[place]ide 0.25 mg or 0.5 mg (2 mg/3 mL) pen injector Other Relevant Orders Follow Up In Primary Care documented in this encounter [facility] Work Phone: 08-16-2022 History of Present illness Narrative Labs Date FT4/TT3 IGF1 Testo/E2 ACTH vitD MRI 08/03 1.4/1.3 36 343 10.9 11.6 stable 03/04 1.2/1.4 145 549 5 03/06 1.6/1.06 62 326 <5.0 stable 09/04 1.3/1.0 47 441 <5.0 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 He presented in December 2013 with severe headaches and double vision and a notable visual field cut. MRI in Jan 2014 showed a tumor. Was referred initially to [facility] but things didn't work out there so he came here. He had his surgery here on 02/15/14. 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 He was treated after the procedure for hypopituitarism by Dr. Jones, and then by Dr. Hwang, and has been seeing me since August 2016. He is currently on replacement with thyroid hormone, steroids, and testosterone, but no GH. I have offered it to him in the past but he has always declined as he feels good. At today's visit, he feels well. Only concern is inability to lose weight. At my prior visit with him 2+ years ago he was having headaches, but these have essentially since resolved. He does note that when he gets sick he takes longer to recover. He did have a flu in the begging of Jul for which he ended up getting a Z-pack. He remains on steroids, thyroid, testo, and GH. Has been on GH for about 4 years and has really noticed benefit from it. Current Outpatient Medications Medication Sig Dispense Refill aspirin 81 MG Tab Take 1 tablet by mouth daily. Cholecalciferol (vitamin D) 4000 Units capsule Take 1 capsule by mouth. daily esomeprazole [address] Take 1 capsule by mouth 0900 every other day. hydrocortisone 5 MG tablet TAKE 3 TABLETS (15 MG) BY MOUTH IN MORNING, 1 TABLET (5 MG) IN AFTERNOON, AND 1 TABLET (5 MG) IN EVENING. DOUBLE DOSE WHEN SICK DIRECTED. 450 tablet 2 Insulin Pen Needle (PEN NEEDLES 31GX5/16) 31G X 8 MM Misc Please dispense to be used daily for humatropen injection 100 Each 3 levothyroxine 200 MCG tablet TAKE 1 TABLET BY MOUTH DAILY 90 tablet 3 metoprolol 25 MG tab regular release take 12.5 mg by mouth 2 times daily. rosuvastatin 10 MG Tab take 1 tablet by mouth daily. 90 tablet 3 Somatropin 6 MG Cartridge Inject 0.4 mg as directed daily. 8 Each 3 Testosterone 20.25 MG/ACT (1.62%) Gel gel APPLY 2 PUMPS ON SKIN DAILY 75 g 5 No current facility-administered medications for this visit. On exam, Mr. Barney is a well-appearing male in no distress. Vitals: 08/16/22 1146 BP: 128/77 Pulse: 86 Resp: 16 Temp: 98.3 degrees F (36.8 degrees C) TempSrc: Oral SpO2: 95% Weight: 136.1 kg (300 lb) Height: 1.753 m (5' 9) (weight fluctuates ~10# and in same range as past. HEENT exam shows normal pupil movements and actions. Neck is supple without lymphadenopathy. Lungs are clear to auscultation. The cardiac exam shows a regular rate and rhythm. S1, S2 without murmurs, rubs or gallops. Extremities show no edema, cyanosis or clubbing. Reflexes appear within normal limits. +Skin tags Studies: Component Latest Ref Rng & Units 02/23/2020 02/22/2019 SODIUM 133 - 143 mmol/L 141 141 POTASSIUM 3.5 - 5.0 mmol/L 4.7 4.2 CHLORIDE 98 - 108 mmol/L 104 106 BUN 7 - 22 mg/dL 11 17 CREATININE 0.70 - 1.30 mg/dL 1.08 1.05 GLUCOSE 70 - 99 mg/dL 148 (H) 105 (H) BILIRUBIN, TOTAL <1.5 mg/dL 0.6 0.6 ALBUMIN 3.5 - 5.0 g/dL 4.2 4.3 PROTEIN, TOTAL 6.4 - 8.3 g/dL 7.2 7.4 AST 14 - 40 U/L 30 24 ALKALINE PHOS 32 - 126 U/L 108 100 CALCIUM 8.6 - 10.5 mg/dL 10.1 10.3 BUN/CREA RATIO 10 16 CARBON DIOXIDE 22 - 30 mmol/L 32 (H) 27 ALT 10 - 52 U/L 45 30 ANION GAP 7 - 17 mmol/L 10 12 ESTIMATED GFR, NON AMER >=60 mL/min/1.73sqM >=60 >=60 OSMOLALITY (CALC) 278 - 305 mOsm/kg 298 297 HEMOGLOBIN A1C 4.7 - 5.6 % 7.3 (H) Estimated Average Glucose mg/dL 163 IGF 1 36.0 - 200.0 ng/mL 139.0 145.0 GROWTH HORMONE <3.00 ng/mL 0.16 0.12 T4 FREE 0.89 - 1.76 ng/dL 1.34 1.29 TSH, 0.550 - 4.780 uIU/mL 0.009 (L) TESTOSTERONE 87 - 814 ng/dL 538 549 ACTH 9.0 - 50.0 pg/mL 6.2 (L) 5.0 (L) T3, TOTAL 0.60 - 1.81 ng/mL 1.51 1.47 MRI 02.23.2020 (images reviewed by me--I concur things are stable. IMPRESSION: Postoperative changes related to prior transsphenoidal surgery. Redemonstration of hypo/nonenhancing focus along the inferior and left aspect of the sella which is most suggestive of postoperative changes. Appearance is unchanged in comparison to previous examination. No progressive nodularity to suggest recurrence. IMPRESSION and PLAN In terms of the pituitary, Mr. Barney's labs and imaging all look good, which is reassuring. I'm unsure what to make of the headache, but I don't see anything to suggest recurrent tumor, which was a big concern. He was to see the eye doctor a few days after my appointment with him, so I would be interested to see what was seen there. If nothing turns up, I would consider referring him to our headache clinic. The other significant issue, as noted by NIMCO Diehl, is the elevated HbA1C. We last checked in in Jul 2017 and it was 6.2 at that time, so this looks like a significant rise. As my clinic is not set up for DM management, I recommended to Mr. Barney that he speak with his PCP regarding management. As he is on replacement levels of hormones, this should not have a significant effect on therapies. Given the lack of any concerning findings, I will plan to see him back in 1 year but I would like to reach out to him by phone in about 1 month to see if the headaches persist. 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 He presented in December 2013 with severe headaches and double vision and a notable visual field cut. MRI in Jan 2014 showed a tumor. Was referred initially to [facility] but things didn't work out there so he came here. He had his surgery here on 02/15/14. 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 He was treated after the procedure for hypopituitarism by Dr. Jones, and then by Dr. Hwang, and has been seeing me since August 2016. He is currently on replacement with thyroid hormone, steroids, and testosterone, and GH. At today's visit, he feels well. Only concern is inability to lose weight. At my prior visit with him 2+ years ago he was having headaches, but these have essentially since resolved. He does note that when he gets sick he takes longer to recover. He did have a flu in the begging of Jul for which he ended up getting a Z-pack. He remains on Replacement of steroids, thyroid, testo, and GH. Has been on GH for about 4 years and has really noticed benefit from it. Current Outpatient Medications Medication Sig Dispense Refill aspirin 81 MG Tab Take 1 tablet by mouth daily. Cholecalciferol (vitamin D) 4000 Units capsule Take 1 capsule by mouth. daily esomeprazole [address] Take 1 capsule by mouth 0900 every other day. hydrocortisone 5 MG tablet TAKE 3 TABLETS (15 MG) BY MOUTH IN MORNING, 1 TABLET (5 MG) IN AFTERNOON, AND 1 TABLET (5 MG) IN EVENING. DOUBLE DOSE WHEN SICK DIRECTED. 450 tablet 2 Insulin Pen Needle (PEN NEEDLES 31GX5/16) 31G X 8 MM Misc Please dispense to be used daily for humatropen injection 100 Each 3 levothyroxine 200 MCG tablet TAKE 1 TABLET BY MOUTH DAILY 90 tablet 3 metoprolol 25 MG tab regular release take 12.5 mg by mouth 2 times daily. rosuvastatin 10 MG Tab take 1 tablet by mouth daily. 90 tablet 3 Somatropin 6 MG Cartridge Inject 0.4 mg as directed daily. 8 Each 3 Testosterone 20.25 MG/ACT (1.62%) Gel gel APPLY 2 PUMPS ON SKIN DAILY 75 g 5 No current facility-administered medications for this visit. On exam, Mr. Barney is a well-appearing male in no distress. Vitals: 08/16/22 1146 BP: 128/77 Pulse: 86 Resp: 16 Temp: 98.3 degrees F (36.8 degrees C) TempSrc: Oral SpO2: 95% Weight: 136.1 kg (300 lb) Height: 1.753 m (5' 9) (weight fluctuates ~10# and in same range as past. HEENT exam shows normal pupil movements and actions. Neck is supple without lymphadenopathy. Lungs are clear to auscultation. The cardiac exam shows a regular rate and rhythm. S1, S2 without murmurs, rubs or gallops. Extremities show no edema, cyanosis or clubbing. Reflexes appear within normal limits. +Skin tags Studies: Prior labs are shown in the chart prep note from Pema Maguire PA-C. New labs: Component Latest Ref Rng & Units 08/16/2022 SODIUM 135 - 145 mmol/L 140 POTASSIUM 3.5 - 5.0 mmol/L 4.0 CHLORIDE 98 - 108 mmol/L 104 BUN 7 - 25 mg/dL 13 Creatinine 0.70 - 1.30 mg/dL 1.06 Glucose 70 - 99 mg/dL 147 (H) BILIRUBIN, TOTAL <1.5 mg/dL 0.6 Albumin 3.5 - 5.0 g/dL 4.1 PROTEIN, TOTAL 6.4 - 8.3 g/dL 7.1 AST 10 - 39 U/L 23 ALKALINE PHOS 32 - 126 U/L 79 CALCIUM 8.6 - 10.5 mg/dL 9.6 CARBON DIOX 21 - 31 mmol/L 29 ALT 10 - 52 U/L 27 BUN/CREA RATIO 12 OSMOLALITY (CALC) 278 - 305 mOsm/kg 296 ANION GAP 7 - 17 mmol/L 11 eGFR, CKD-EPI, Male >=60 mL/min/1.73m2 80 HEMOGLOBIN A1C 4.7 - 5.6 % 7.7 (H) Estimated Average Glucose mg/dL 174 VIT D 25-OH 30.0 - 100.0 ng/mL 65.4 T3, TOTAL 0.60 - 1.81 ng/mL 1.00 ACTH pg/mL <5.0 (L) TESTO 87 - 814 ng/dL 397 FSH mIU/mL 1.2 LH mIU/mL 0.16 Insulin-Like Growth Factor 1 (IGF 1) 53.0 - 206.0 ng/mL 112.7 T4 FREE 0.89 - 1.76 ng/dL 1.23 IMPRESSION and PLAN Travis Barney is a 62 y.o. male with oliveros-hypopituitarism after resection of a pituitary lesion many years ago. He remains on steroid replacement, and electrolytes are completely normal. Thyroid studies look good with normal f-T4 and total T3. IGF1 also is normal. Pituitary hormones themselves (ACTH, TSH, LH/FSH) are all low, consistent with his hypopit state, and we will cease measuring these as they aren't adding anything to the picture. The only thing that is out of line is the glucose, and coupled with the HbA1C of 7.7% indicates that Mr. Barney has DM. Although blood sugar can be driven but by excess hormones (hydrocort, GH), in his case these axes are in good shape so I think this is an underlying problem with glucose tolerance. I note that he is not currently on any medications for diabetes, and he really should be. My clinic is not set up for diabetes management, so I would ask that his PCP Dr Yang manage this for the time being. If it becomes very difficult to manage, I'd be happy to arrange for him to be seen in one of our clinics that has capacity for diabetic patients. From my viewpoint, I think either metformin or a GLP1 agonist might be a good first option for him, although weight loss probably better with the latter. Given the lack of any concerning hormonal findings, I will plan to see him back in 1 year with labs. documented in this encounter [facility] 08-16-2022 Instructions Monalisa Drake RN - 08/16/2022 11:40 AM EST Return to clinic in 1 year with labs prior documented in this encounter [facility] 08-02-2022 History of Present illness Narrative cough since yesterday but not congested or wheezingST todaySN not noted, No fever or exhaustionRN today, PNDCOVID-19 negNo headache or achinessCough drops helpdid not keep awake last nightDelsym helped [facility] Work Phone: 05-21-2022 Note Clinical Note - Phar armando v2: Education: Additional NotesED Post Discharge Result Follow Up: Complete, Norovirus GI/GII Patient tested positive for norovirus during recent ED visit. ED doctor educated the patient on the positive result and proper discharge instructions (at-home care, isolation, etc). No further follow up from EDPD team is needed. If there are any other questions for the ED Post-Discharge Culture Follow Up Team, please contact [phone]. . Shady Muse PharmD PGY1 Theatrical Performer [facility] Electronic Signatures: Samantha Hudson (PharmD) (Signed 22-May-2022 08:59) Co-Signer: Shady Whelan (PHARM STUD) (Signed 21-May-2022 16:15) Authored: Education Last Updated: 22-May-2022 08:59 by Samantha Hudson (PharmD) [facility] 05-13-2022 History of Present illness Narrative Travis is a 62 yo male here today with complaints of sinus congestion, sinus pressure and cough. He reports he wears CPAP was unable to sleep last evening due to nasal congestion.Symptoms started worsening yesterday, has had a cough off/on for about 3 weeks.denies fever, sore throat, CP, or SOBis not taking any allergy or OTC medications.He is concerned because he had his Pituitary removed and is under increased stress this week due to his 's father early this AM after acute illnesshas been under increased stress today, BP is elevated here in the office today, is usually in normal range. -[facility] Work Phone: 04-03-2022 History of Present illness Narrative Patient verified full name and He was diagnosed with obstructive sleep apnea at outside center in 2000 (RDI was 11.0) and using auto CPAP regularly (had old device that was not downloadable and apparently without a humidifier). He then established care here with Dr. Griffin and underwent titration study at [facility] on 08/11/15 which recommended CPAP of 14 cm H2O. He continues to use CPAP nightly. He is using a nasal pillows mask . He does not get much mask leak. He turned the heat part off (the humidifier) because it was getting too warm. He still uses water in the water chamber. He gets occasional dry mouth. The pressure is comfortable. He is not snoring with it on. He continues to note benefit with CPAP. He can't sleep without it. He goes to bed at 10p and watches tv until about 11p and wakes at 6a. Sometimes takes longer to get to sleep, could be up to an hour. He wakes up ~2 times per night- just wakes up and takes about 30-45 min to get back to sleep. Often happens around 3:30a when he wakes up. Can't turn his mind off. Rarely uses bathroom. He rarely takes naps. He does not take any sleep aids. He does not drink caffeine. Job is sedentary. He wakes up a lot at night, but even when he does sleep he does not feel rested in morning and is tired throughout the day. He feels better if he is more active, but more tired if just sitting at desk or sitting idle. He may take a nap on the weekends. Symptoms since at least early December. Did lose a couple of family members after this in the summer. One being his daughter in law who suddenly. He still has vision of seeing her when she was found. Dad passed at age 89 the day before this. No other changes in medical history or changes in medications. Reports he did see PCP within last month and had some lab work done. But did not discuss fatigue in particular. He continues to use [employer] for supplies. Changes in medical history since last visit: no changes. Weight steady since last year (was 296 lbs). Wt Readings from Last 3 Encounters: 04/03/22 135.6 kg (299 lb) 08/20/21 (!) 136.3 kg (300 lb 6.4 oz) 02/16/21 133.4 kg (294 lb 1.6 oz) Sleep Disorders [place] Sleepiness Scale: 12 FOSQ Score: 15.5 His previous [place] Sleepiness Scale was 9/24points. Denies falling asleep while driving. Download Data ([employer] 08/27-09/25) CPAP: 14 cm H2O Total days used: 30/30 % used days >= 4 hours: 100% Average hours used per day (when used): 7:42 Residual AHI: 0.9 Leak: 13.9 lpm 95th percentile Data reviewed with patient and scanned into chart. Diagnostic Review PSG in 2000 showed an RDI of 11.0 at outside center. Titration study 08/11/15 recommended CPAP 14 cm H2O. Weight 312 lbs. Allergies is allergic to sulfamethoxazole-trimethoprim. Medications He has a current medication list which includes the following prescription(s): aspirin, vitamin d, esomeprazole, hydrocortisone, pen needles 31gx5/16, levothyroxine, metoprolol, rosuvastatin, somatropin, and testosterone. Review of Systems As noted in [place] No restless legs or kicking at night. Past Medical History He has a past medical history of Brain tumor, Essential hypertension, benign, Migraine, and Pituitary adenoma. Past Social History He reports that he has never smoked. He has never used smokeless tobacco. He reports that he does not drink alcohol and does not use drugs. Physical Exam BP 126/84 (BP Location: Right arm, BP Position: Sitting) Pulse 61 Temp 96.3 F (35.7 C) (Infrared) Ht 1.753 m (5' 9) Wt 135.6 kg (299 lb) SpO2 97% Comment: RA BMI 44.15 kg/m Smoking Status Never Body mass index is 44.15 kg/m . Alert and oriented. In no apparent distress. Speaking clearly in full sentences. Normocephalic, atraumatic. Normal affect. ASSESSMENT/PLAN: The encounter diagnosis was DONTRELL (obstructive sleep apnea). DONTRELL well treated on CPAP 14 cm H2O. He is compliant and benefiting from CPAP use. He has been feeling more tired over the past ~3 months. No data since September available to review today, but looks good based on the data we do have. He sleep has been more fragmented as of recent. 1. He is to continue using CPAP with a pressure of 14 cm H2O. Will request sd card download from [employer] to review most recent data from CPAP. 2. Encouraged regular continued nightly use of the CPAP machine. 3. 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 4. He was reminded of the importance of weight loss in treating sleep apnea. 5.He should avoid respiratory suppressants as they could worsen nocturnal hypoxemia and sleep disordered breathing. 6. We will follow up in clinic with him in 3 months. He is to contact me if he has any questions prior to that time. 7. Discussed good sleep hygiene. Increase exercise during the day to help with mood, sleep and energy. 8. Discussed possibility of new titration study to ensure optimal settings, which he declines for now. Total time spent pre-charting, in chart review/update during visit, patient exam/evaluation, coordination of care/counseling, providing summary communications to patient and final documentation on day of encounter was 30 minutes. documented in this encounter [facility] 04-03-2022 Instructions SEN Harrison - 04/03/2022 9:00 AM EDT Sleep Hygiene For most people, falling asleep and staying asleep are parts of a natural process. Good sleepers are likely to have developed certain lifestyle and dietary habits that promote sound sleep. These habits or behaviors known as sleep hygiene can have positive effects on sleep before, during, and after time spent in bed. For the most part, sleep hygiene is a matter of common sense, and the techniques suggested in this booklet will help most people sleep better. Caffeine Caffeine stimulates the brain and interferes with sleep. Coffee, tea, miriam, cocoa, chocolate, and prescription and nonprescription drugs that contain caffeine should not be taken within three to four hours of bedtime. Although moderate day-time use of caffeine usually does not interfere with sleep at night, heavy or regular use during the day can lead to withdrawal symptoms and to sleep problems at night. Nicotine Nicotine is another stimulating drug that interferes with sleep, and nicotine withdrawal can also disrupt sleep throughout the night. Cigarettes and some drugs contain substantial quantities of nicotine. Smokers, who break the habit, once they overcome the withdrawal effects of the drug, can expect to fall asleep faster and wake up less during the night. Alcohol One of the effects of alcohol is a slowing of brain activity. When taken at bedtime, alcohol may help induce sleep at first, but will disrupt sleep later in the night. A nightcap before bed can result in awakenings during the night, nightmares, and life insurance sales headaches. Alcoholic beverages should be avoided within four to six hours of bedtime. Exercise Regular exercise helps people sleep better; the benefits of exercise on sleep, however, depend on the time of day it is undertaken and on your overall fitness level. People who are physically fit should avoid exercising within six hours of bedtime. Exercise in the morning is not likely to affect sleep at night, but the same amount of exercise--if done too close to bedtime--can disrupt sleep. On the other hand, too little exercise and limited activity during the day can also lead to sleeplessness at night. Consult a healthcare provider before beginning an exercise program. Environment A comfortable bed in a dark, quiet room is the best setting for a good night's sleep. Some people seem to adjust easily to changes in sleep environment, but others (such as insomniacs and the elderly) can be easily disturbed by small, changes in sleep surroundings. When excessive light is a problem, blackout curtains and spot lighting can be helpful. Noise problems can be alleviated with the use of background sound white noise or earplugs. Diet Eating a full meal shortly before bedtime can interfere with the ability to fall asleep and stay asleep, as can heavy meals eaten at any time of day or foods that cause indigestion. A light snack at bedtime, however, can promote sleep. Milk and other dairy products, which contain the natural sleep-promoting substance tryptophan, are especially good as bedtime snacks. Decreasing Time Awake in Bed Stress contributes to many sleep problems. People who have trouble sleeping sometimes begin to rely on certain strategies--such as regular napping, excessive use of caffeine, use of alcoholic beverages at bedtime, working at night, and sleeping at irregular times--to help adapt to a disturbed sleep schedule. After the source of stress that led to the sleep problem is eliminated, these behaviors can sometimes cause sleep problems to continue. A cycle of repeated difficulty in falling asleep develops, and tension and a fear of sleeplessness can result. The bedroom itself can come to be associated with unsuccessful attempts to sleep and with tension and anxiety. Some people who have trouble sleeping will begin sleeping on a sofa or in a chair because they are no longer able to sleep in the bedroom. This phenomenon, termed conditioning, may respond to one of two treatment techniques: stimulus control and sleep restriction. Stimulus control attempts to reestablish the connection between sleep and the bedroom. This is done by reducing the amount of time spent lying awake in bed. stimulus control treatment. The principles of good sleep hygiene and stimulus control are often used together to relieve sleeplessness. Sleep restriction works by reducing the amount of time spent in bed to the estimated time period spent actually sleeping. Sleep restriction techniques, which can be learned from a sleep specialist, include recording the time you spend in bed and the time you spend asleep each day for one to two weeks. The amount of time spent in bed is then restricted to the time spent actually sleeping. As sleep quality improves, the sleep schedule is adjusted as appropriate. Sleep restriction prescribes a specific amount of sleep but not a mandatory time period in bed. Stimulus control and sleep hygiene guidelines may be used in combination with sleep restriction. Clock-watching should be avoided by people experiencing sleep problems, especially those with insomnia. It can be helpful to set the alarm for the desired morning arise time, and then hide the clock and watches in a dresser drawer across the room. Most people experiencing sleep problems sleep best when time pressures are relieved. Relaxation exercises, meditation, biofeedback, and hypnosis are sometimes beneficial in controlling sleep problems. Managing Stress As mentioned earlier, the stress that stems from common life situations often contributes to sleep problems. A relaxing activity around bedtime can help relieve tension and encourage sleep. Consciously attempting to clarify problems and formulate solutions can have a positive effect on sleep quality. Talking with a trusted friend or colleague to air out troubling issues can be helpful. Relaxation exercises, meditation, biofeedback, and hypnosis are sometimes beneficial in controlling sleep problems. These techniques should be learned from a psychologist, physician, or other healthcare professional. Designating Worry Time Another technique that can be helpful is to designate a particular time for worry. This time is dedicated to sorting out problems and coming up with possible solutions. Set aside 30 minutes in the evening to sit alone undisturbed. On 3 x 5 cards, write down each of your worries as it comes to mind (one worry per card). These worries can range from the mundane (needing to call someone in the morning or remembering an anniversary) to the serious (financial concerns or problems with a relationship). When all worries have been written down, sort the cards into three to five piles according to the priority of the worry. Next, look at each card and formulate a possible solution to that worry. While not all worries will have easy solutions, even small progress in remedying a worry can yield helpful results. The morning after recording your worries, review the worry cards and begin to work on resolving the worries you've identified. Instructions for Stimulus Control Management Try to sleep only when you are drowsy. If you are unable to fall asleep or stay asleep, leave your bedroom and engage in a quiet activity elsewhere. Do not permit yourself to fall asleep outside the bedroom. Return to bed when and only when you are sleepy. Repeat this process as often as necessary throughout the night. Maintain a regular arise time, even on days off work and on weekends. Use your bedroom only for sleep and sex. Avoid napping during the daytime. If daytime sleepiness becomes overwhelming, limit nap time to a single nap of 20-30 minutes, no later than 3 p.m. Instructions for Sleep Hygiene Avoid caffeine within four to six hours of bedtime. Avoid the use of nicotine close to bedtime or during the night. Do not drink alcoholic beverages within four to six hours of bedtime. While a light snack before bedtime can help promote sound sleep, avoid large meals. Avoid strenuous exercise within 6 hours of bedtime. 6. Minimize light, noise, and extremes in temperature in the bedroom. Drowsy Driving Tips These suggestions will help prevent you from the risk of drowsy driving. 1. If you feel tired or drowsy do not drive. Sleepiness is a major cause of motor vehicle accidents and accounts for 40% of all fatal crashes reported on the [facility]. No matter how much you think you can control sleepiness, you can't. 2. Ensure you follow your doctor's advice about the treatment for your sleep disorder. For example, if you have sleep apnea and use CPAP, ensure you use it fully the night before your trip. 3. Get a good night's sleep before driving. Do not reduce your sleep time if you plan a long drive the next day. Get to bed early and do not stay up late packing. 4. Avoid alcohol both the night before your trip and the during your trip. Alcohol will disrupt sleep and make you more tired the next day. Sleepiness and alcohol are additive in increasing impairment of your driving ability. 5. Avoid any sedative medications, including sedative antihistamines that are often contained in cold or allergy medications, the night before you drive as they may have long lasting effects the next day. 6. Travel during non-sleeping hours. Accidents due to sleepiness are more common during the nighttime hours. 7. If sleepy, stop and rest. Drink coffee, walk around or have a brief nap in your car if you are sleepy. Have a 10-15 minute break after every [address] with a printed circuit layout taper. Share the driving. Relax in the back seat until it is your time to share the driving again. documented in this encounter [facility] 10-11-2021 History of Present illness Narrative Patient is here for evaluation of GI symptoms. Patient reports that about 5 to 6 days ago he started to have nausea and vomiting after going for dinner. Since then he has been having multiple vomiting episodes. About 4 days ago he had one episode where his vomitus was nothing black. However since then his vomitus was looking normal. His vomiting has improved in the last couple of days however he continues to have dry heaving. He has medications which she is not able to take due to dry heaving. Requesting for medication to help with nausea. His diarrhea has completely resolved now. Denies any fever.Plan: Prescribing Zofran. Checking hemoglobin hematocrit to check for any blood loss given the vomitus.Follow-up as needed. Recommended to seek immediate medical attention if acute worsening of symptoms [facility] Work Phone: 07-07-2021 History of Present illness Narrative onset 07/07/21Test 07/07/21ST, Scratchy, hoarse, Sneezing, RN, Tired, Achy, cough,Not short of breathTylenol does help someCough drops helpStress dosing on hydrocortisoneHe is immunized02/23/21 [facility] Work Phone: 03-13-2020 History of Present illness Narrative Has been having more headaches and loss of memory in the last year. All over. Can wake at hs. His associate financial planner did an MRI and no abnormality seen. No focal numbness or weakness. No DV or MAGNOLIA. Saw eye doctor but nothing noted. Tylenol takes edge off. Naprosyn before bed helps some. Photophobia not an issue unless first in AM. No nausea. Now more on occasion. No particular reason.Back pain of thoracolumbar region - has been minimal when on growth hormone but not able to get lately. Working on that with associate financial planner.Chronic rhinitis - have been doing OK after Kenalog shot in November. No regular meds. OTC meds prnCKD III GFR was 50 with Creatinine up to 1.44 this time. This is new. No blood. No NSAIDS. No new meds. Some increase in proteinColon polyps - 2020 on March 27. But last was hyperplastic in 2017. This one clear so 5 yearsEssential familial hyperlipidemia - Med works well without side effects. CMP WNL at [facility] this time and lipids good last time.Extreme obesity - BMI 43. Has stopped pop. Active and eating right. Weight is down about 11.Fatigue - much better when on GH.GERD (gastroesophageal reflux disease) - on PPI every 3 days and when he takes extra cortisone. No HB, Melena, dysphagia, or hematochezia.History of benign pituitary tumor - Dr Sheffield manages. Good labs. AnnualHTN - Hypertension - No Chest pain, Dyspnea, palpitations, numbness, weakness, edema, claudications, or double vision/ loss of vision.Low testosterone - on supplement and good level 326.Polyarthralgia - much better but still has achy days especially when off of GH. Off of gabapentinSecondary hypothyroidism - on supplement and good level of Free T4 and free T3.Sleep apnea - CPAP and works wellVitamin D deficiency supplement at [facility] Good level last time.PSA 02/16/21 0.7Colonoscopy 03/27/20 due in 2024. -[facility] Work Phone: Evaluation note Diagnosis DONTRELL (obstructive sleep apnea)- Primary Obstructive sleep apnea (adult) (pediatric) [facility] Hypogonadotropic hypogonadism Other anterior pituitary disorders Panhypopituitarism Adrenal insufficiency Glucocorticoid deficiency Pituitary adenoma Benign neoplasm of pituitary gland and craniopharyngeal duct (pouch) Growth hormone deficiency (human) Pituitary dwarfism Vitamin D deficiency Unspecified vitamin D deficiency Type 2 diabetes mellitus treated without insulin [facility] Hypogonadotropic hypogonadism Other anterior pituitary disorders Panhypopituitarism Adrenal insufficiency Glucocorticoid deficiency Pituitary adenoma Benign neoplasm of pituitary gland and craniopharyngeal duct (pouch) Growth hormone deficiency (human) Pituitary dwarfism Vitamin D deficiency Unspecified vitamin D deficiency Type 2 diabetes mellitus treated without insulin [facility] Diagnosis Hypogonadotropic hypogonadism- Primary Other anterior 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 Adrenal insufficiency Glucocorticoid deficiency [facility] Diagnosis Frequent headaches- Primary Low back pain of thoracolumbar region with sciatica Chronic allergic rhinitis Type 2 diabetes mellitus without complication, without long-term current use of insulin (CMS/HCC) Hyperplastic colonic polyp, unspecified part of colon History of benign pituitary tumor Gastroesophageal reflux disease without esophagitis Esophageal reflux Familial hyperlipidemia Other and unspecified hyperlipidemia Low testosterone Panhypopituitarism (CMS/HCC) Panhypopituitarism Polyarthralgia Pain in joint, multiple sites Secondary hypothyroidism Other specified acquired hypothyroidism documented in this encounter [facility] Work Phone: Evaluation note* Diagnosis Type 2 diabetes mellitus without complication, without long-term current use of insulin (CMS/HCC)- Primary Pituitary adenoma (CMS/HCC) Benign neoplasm of pituitary gland and craniopharyngeal duct (pouch) Chronic allergic rhinitis Adenomatous polyp of colon, unspecified part of colon Familial hyperlipidemia Other and unspecified hyperlipidemia Frequent headaches Gastroesophageal reflux disease without esophagitis Esophageal reflux History of benign pituitary tumor Primary hypertension Unspecified essential hypertension Low testosterone Morbid obesity with BMI of 40.0-44.9, adult (CMS/HCC) Panhypopituitarism (CMS/HCC) Panhypopituitarism Polyarthralgia Pain in joint, multiple sites Secondary hypothyroidism Other specified acquired hypothyroidism Obstructive sleep apnea syndrome Obstructive sleep apnea (adult) (pediatric) Vitamin D deficiency documented in this encounter [facility] Work Phone: Evaluation note* Diagnosis COVID-19- Primary documented in this encounter [facility] Work Phone: Evaluation note* Diagnosis Healthcare maintenance- Primary Type 2 diabetes mellitus without complication, without long-term current use of insulin (CMS/HCC) Primary hypertension Unspecified essential hypertension Chronic allergic rhinitis Class 2 severe obesity due to excess calories with serious comorbidity and body mass index (BMI) of 39.0 to 39.9 in adult (CMS/HCC) Adenomatous polyp of colon, unspecified part of colon Familial hyperlipidemia Other and unspecified hyperlipidemia Frequent headaches Gastroesophageal reflux disease without esophagitis Esophageal reflux History of benign pituitary tumor Low back pain of thoracolumbar region with sciatica Low testosterone Panhypopituitarism (CMS/HCC) Panhypopituitarism Polyarthralgia Pain in joint, multiple sites Secondary hypothyroidism Other specified acquired hypothyroidism Obstructive sleep apnea syndrome Obstructive sleep apnea (adult) (pediatric) Vitamin D deficiency documented in this encounter [facility] Work Phone: Evaluation note* Diagnosis Examination of participant in clinical trial Hypogonadotropic hypogonadism Other anterior 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 Adrenal insufficiency Gluc[facility]oid [facility] Pituitary adenoma- Primary Benign neoplasm of pituitary gland and craniopharyngeal duct (pouch) 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 Polyarthralgia Pain in joint, multiple sites Adrenal insufficiency Glucocorticoid deficiency Hypogonadotropic hypogonadism Other anterior pituitary disorders Vitamin D deficiency Unspecified vitamin D deficiency [facility] DONTRELL (obstructive sleep apnea)- Primary Obstructive sleep apnea (adult) (pediatric) [facility] Chronic allergic rhinitis- Primary Type 2 diabetes mellitus without complication, without long-term current use of insulin (Multi) Class 2 severe obesity due to excess calories with serious comorbidity and body mass index (BMI) of 39.0 to 39.9 in adult (Multi) Adenomatous polyp of colon, unspecified part of colon Familial hyperlipidemia Other and unspecified hyperlipidemia Frequent headaches Gastroesophageal reflux disease without esophagitis Esophageal reflux Primary hypertension Unspecified essential hypertension Panhypopituitarism (Multi) Panhypopituitarism Multiple papillomata Multiple papillomata and wet crab yaws due to yaws Low back pain of thoracolumbar region with sciatica Low testosterone Secondary hypothyroidism Other specified acquired hypothyroidism Pituitary adenoma (Multi) Benign neoplasm of pituitary gland and craniopharyngeal duct (pouch) Polyarthralgia Pain in joint, multiple sites Obstructive sleep apnea syndrome Obstructive sleep apnea (adult) (pediatric) Vitamin D deficiency Arthropathy of cervical facet joint documented in this encounter [facility] Work Phone: Evaluation note* Diagnosis Abscess- Primary Cellulitis and abscess of unspecified site documented in this encounter [facility] Work Phone: Evaluation note* Diagnosis Abscess- Primary Cellulitis and abscess of unspecified site documented in this encounter [facility] Work Phone: Evaluation note* Diagnosis Type 2 diabetes mellitus without complication, without long-term current use of insulin (Multi)- Primary Familial hyperlipidemia Other and unspecified hyperlipidemia Primary hypertension Unspecified essential hypertension Gastroesophageal reflux disease without esophagitis Esophageal reflux documented in this encounter [facility] Work Phone: Evaluation note* Diagnosis Growth hormone deficiency (human)- Primary Pituitary dwarfism Hypogonadotropic hypogonadism Other anterior pituitary disorders Panhypopituitarism Adrenal insufficiency Glucocorticoid deficiency Vitamin D deficiency Unspecified vitamin D deficiency [facility] Diagnosis Flexor tendinitis of hand- Primary documented in this encounter [facility] Work Phone: Evaluation note* Diagnosis Allergy, initial encounter- Primary Type 2 diabetes mellitus without complication, without long-term current use of insulin documented in this encounter [facility] Work Phone: History of Present illness Narrative* Having some less headaches this time and no worse loss of memory in the 6 months All over. Can wakeat hs. His associate financial planner did an MRI and no abnormality seen. No focal numbness or weakness. No DVor MAGNOLIA. Saw eye doctor but nothing noted. Tylenol takes edge off. Naprosyn before bed helps some. Photophobia not an issue unless first in AM. No nausea. Now more on occasion. No particular reason. * Back pain of thoracolumbar region - has been minimal now that back on growth hormone. * Chronic rhinitis - have been doing OK after Kenalog shot in November. Will call. No regular meds. OTC meds prn * CKD III GFR back to normal at 79 this time. Creatinine up to 1.08 this time. No blood. No NSAIDS. No new meds. Some increase in protein * Colon polyps - 2020 on March 27. But last was hyperplastic in 2017. This one clear so 5 years * Essential familial hyperlipidemia - Med works well without side effects. CMP WNL at [facility] this time and lipids good last time. * Extreme obesity - BMI 44. Has stopped pop. Active. Weight is up 14 with pancakes and not on growth hormone * Fatigue - much better when on GH. * GERD (gastroesophageal reflux disease) - on PPI every 3 days and when he takes extra cortisone. No HB, Melena, dysphagia, or hematochezia. * History of benign pituitary tumor - Dr Sheffield manages. Good labs this time. Annual * HTN - Hypertension - No Chest pain, Dyspnea, palpitations, numbness, weakness, edema, claudications, or double vision/ loss of vision. * Low testosterone - on supplement and good level 441 * Polyarthralgia - much better but still has achy days especially when off of GH. Off of gabapentin * Secondary hypothyroidism - on supplement and good level of Free T4 and free T3. * Sleep apnea - CPAP and works well * Vitamin D deficiency supplement at [facility] Good level this time. OTC Vitamin D. * Sore in right inguinal area. 2 days. No drainage. * PSA 02/16/21 0.7 * Colonoscopy 03/27/20 due in 2024. -[facility] Work Phone: History of Present illness Narrative* SN, RN, ST, PND, cough that is not productive * No fever or chills or Headache * Sinus pain * No Dyspnea or achiness * Tired due to not sleeping. -[facility] Work Phone: History of Present illness Narrative* Having some less headaches this time and no worse loss of memory in the 6 months The LOPEZ is all over. Can wake at hs. His associate financial planner did an MRI and no abnormality seen. No focal numbness or weakness. No DV or MAGNOLIA. Saw eye doctor but nothing noted. Tylenol takes edge off. Naprosyn before bed helps some. Photophobia not an issue unless first in AM. No nausea. Now more on occasion. No particular reason. * Back pain of thoracolumbar region - has been minimal now that back on growth hormone. * Chronic rhinitis - have been doing OK after Kenalog shot in November. No regular meds. OTC meds prn. Had sinusitis in December * CKD III GFR back to normal at 79 in August. Creatinine up to 1.08. No blood. No NSAIDS. No new meds.Some increase in protein * Colon polyps - 2020 on March 27. But last was hyperplastic in 2017. This one clear so 5 years * Essential familial hyperlipidemia - Med works well without side effects. CMP WNL at [facility] last time and lipids good this time except TG of 264. So will watch carbs . * Extreme obesity - BMI 43 Has stopped pop. Active. Weight is down 7 as back on Growth Hormone and more active. * Fatigue - much better when on GH. But not sleeping well and will see sleep med later this month. * GERD (gastroesophageal reflux disease) - on PPI every 3 days and when he takes extra cortisone. No HB, Melena, dysphagia, or hematochezia. * History of benign pituitary tumor - Dr Sheffield manages. Good labs last time. Annual * HTN - Hypertension - No Chest pain, Dyspnea, palpitations, numbness, weakness, edema, claudications, or double vision/ loss of vision. * Low testosterone - on supplement and good level 441 last time. * Polyarthralgia - much better but still has achy days especially when off of GH. Off of gabapentin * Secondary hypothyroidism - on supplement and good level of Free T4 and free T3. * Sleep apnea - CPAP and works well * Vitamin D deficiency supplement at No[facility] Good level last time. OTC Vitamin D. * PSA 02/16/21 0.7 * Colonoscopy 03/27/20 due in 2024. -[facility] Work Phone: Reason for referral (narrative)* Consultation (Routine) - Authorized Specialty Diagnoses / Procedures Referred By Contac t Referred To Contact Primary Care Diagnoses Type 2 diabetes mellitus without complication, without long-term current use of insulin (CMS/HCC) Procedures Follow Up In Primary Care Althea Yang MD [address] [facility], [place] [address] Referral ID Status Reason Start Date Expiration Date V isits Requested Visits Authorized [id number] Authorized 10/07/2022 04/05/2023 1 1 [facility] Work Phone: Reuslk for referral (narrative)* Consultation (Routine) - Authorized Specialty Diagnoses / Procedures Referred By Contac t Referred To Contact Primary Care Diagnoses Type 2 diabetes mellitus without complication, without long-term current use of insulin (CMS/HCC) Procedures Follow Up In Primary Care - Established Althea Yang MD [address] [facility], [place] [id number] Referral ID Status Reason Start Date Expiration Date V isits Requested Visits Authorized [id number] Authorized 02/10/2023 08/09/2023 1 1 [facility] Work Phone: Reason for referral (narrative)* Consultation (Routine) - Authorized Specialty Diagnoses / Procedures Referred By Laura t Referred To Contact Primary Care Procedures Follow Up In Primary Care - Established Althea Yang MD [address] [facility], [place] [address] Referral ID Status Reason Start Date Expiration Date V isits Requested Visits Authorized [id number] Authorized 08/14/2023 08/13/2024 1 1 [facility] Work Phone: Summary Purpose Family History No Family History Records FoundUnknown Family Member Name Dates Details Family history of acute myoc ardial infarction: Father(V17.3, Z82.49) Status:Active Family history of diabetes m ellitus: Father(V18.0, Z83.3) Status:Active Family history of deep venou s thrombosis: Child(V17.49, Z82.49) Status:Active Family history of factor V L eiden mutation: Child(V18.3, Z83.2) Status:Active Family history of cerebrovas cular accident (CVA): Mother(V17.1, Z82.3) Status:Active Family history of dementia: Mother(V17.2, Z81.8) Status:Active Unknown Family Member Name Dates Details Family history of acute myoc ardial infarction: Father(V17.3, Z82.49) Status:Active Family history of diabetes m ellitus: Father(V18.0, Z83.3) Status:Active Family history of deep venou s thrombosis: Child(V17.49, Z82.49) Status:Active Family history of factor V L eiden mutation: Child(V18.3, Z83.2) Status:Active Family history of cerebrovas cular accident (CVA): Mother(V17.1, Z82.3) Status:Active Family history of dementia: Mother(V17.2, Z81.8) Status:Active Unknown Family Member Name Dates Details Family history of acute myoc ardial infarction: Father(V17.3, Z82.49) Status:Active Family history of diabetes m ellitus: Father(V18.0, Z83.3) Status:Active Family history of deep venou s thrombosis: Child(V17.49, Z82.49) Status:Active Family history of factor V L eiden mutation: Child(V18.3, Z83.2) Status:Active Family history of cerebrovas cular accident (CVA): Mother(V17.1, Z82.3) Status:Active Family history of dementia: Mother(V17.2, Z81.8) Status:Active Unknown Family Member Name Dates Details Family history of acute myoc ardial infarction: Father(V17.3, Z82.49) Status:Active Family history of diabetes m ellitus: Father(V18.0, Z83.3) Status:Active Family history of deep venou s thrombosis: Child(V17.49, Z82.49) Status:Active Family history of factor V L eiden mutation: Child(V18.3, Z83.2) Status:Active Family history of cerebrovas cular accident (CVA): Mother(V17.1, Z82.3) Status:Active Family history of dementia: Mother(V17.2, Z81.8) Status:Active Unknown Family Member Name Dates Details Family history of acute myoc ardial infarction: Father(V17.3, Z82.49) Status:Active Family history of diabetes m ellitus: Father(V18.0, Z83.3) Status:Active Family history of deep venou s thrombosis: Child(V17.49, Z82.49) Status:Active Family history of factor V L eiden mutation: Child(V18.3, Z83.2) Status:Active Family history of cerebrovas cular accident (CVA): Mother(V17.1, Z82.3) Status:Active Family history of dementia: Mother(V17.2, Z81.8) Status:Active Unknown Family Member Name Dates Details Family history of acute myoc ardial infarction: Father(V17.3, Z82.49) Status:Active Family history of diabetes m ellitus: Father(V18.0, Z83.3) Status:Active Family history of deep venou s thrombosis: Child(V17.49, Z82.49) Status:Active Family history of factor V L eiden mutation: Child(V18.3, Z83.2) Status:Active Family history of cerebrovas cular accident (CVA): Mother(V17.1, Z82.3) Status:Active Family history of dementia: Mother(V17.2, Z81.8) Status:Active Unknown Family Member Name Dates Details Family history of acute myoc ardial infarction: Father(V17.3, Z82.49) Status:Active Family history of diabetes m ellitus: Father(V18.0, Z83.3) Status:Active Family history of deep venou s thrombosis: Child(V17.49, Z82.49) Status:Active Family history of factor V L eiden mutation: Child(V18.3, Z83.2) Status:Active Family history of cerebrovas cular accident (CVA): Mother(V17.1, Z82.3) Status:Active Family history of dementia: Mother(V17.2, Z81.8) Status:Active Unknown Family Member Name Dates Details Family history of dementia: Mother(V17.2, Z81.8) Status:Active Family history of cerebrovas cular accident (CVA): Mother(V17.1, Z82.3) Status:Active Family history of factor V L eiden mutation: Child(V18.3, Z83.2) Status:Active Family history of deep venou s thrombosis: Child(V17.49, Z82.49) Status:Active Family history of diabetes m ellitus: Father(V18.0, Z83.3) Status:Active Family history of acute myoc ardial infarction: Father(V17.3, Z82.49) Status:Active Unknown Family Member Name Dates Details Family history of acute myoc ardial infarction: Father(V17.3, Z82.49) Status:Active Family history of diabetes m ellitus: Father(V18.0, Z83.3) Status:Active Family history of deep venou s thrombosis: Child(V17.49, Z82.49) Status:Active Family history of factor V L eiden mutation: Child(V18.3, Z83.2) Status:Active Family history of cerebrovas cular accident (CVA): Mother(V17.1, Z82.3) Status:Active Family history of dementia: Mother(V17.2, Z81.8) Status:Active Unknown Family Member Name Dates Details Family history of acute myoc ardial infarction: Father(V17.3, Z82.49) Status:Active Family history of diabetes m ellitus: Father(V18.0, Z83.3) Status:Active Family history of deep venou s thrombosis: Child(V17.49, Z82.49) Status:Active Family history of factor V L eiden mutation: Child(V18.3, Z83.2) Status:Active Family history of dementia: Mother(V17.2, Z81.8) Status:Active Family history of cerebrovas cular accident (CVA): Mother(V17.1, Z82.3) Status:Active Unknown Family Member Name Dates Details Family history of acute myoc ardial infarction: Father(V17.3, Z82.49) Status:Active Family history of diabetes m ellitus: Father(V18.0, Z83.3) Status:Active Family history of deep venou s thrombosis: Child(V17.49, Z82.49) Status:Active Family history of factor V L eiden mutation: Child(V18.3, Z83.2) Status:Active Family history of cerebrovas cular accident (CVA): Mother(V17.1, Z82.3) Status:Active Family history of dementia: Mother(V17.2, Z81.8) Status:Active Unknown Family Member Name Dates Details Family history of acute myoc ardial infarction: Father(V17.3, Z82.49) Status:Active Family history of diabetes m ellitus: Father(V18.0, Z83.3) Status:Active Family history of deep venou s thrombosis: Child(V17.49, Z82.49) Status:Active Family history of factor V L eiden mutation: Child(V18.3, Z83.2) Status:Active Family history of dementia: Mother(V17.2, Z81.8) Status:Active Family history of cerebrovas cular accident (CVA): Mother(V17.1, Z82.3) Status:Active Advance Directives No Advanced Directives Records FoundLatest Code Status on File Code Status Date Activated Date Inactivated Comments Full Code 02/15/2014 5:07 PM 02/17/2014 10:50 PM Code Status History Code Status Date Activated Date Inactivated Comments Full Code-Unverified 02/10/2014 4:40 PM 02/15/2014 5:07 P M Latest Code Status on File Code Status Date Activated Date Inactivated Comments Full Code 02/15/2014 5:07 PM 02/17/2014 10:50 PM Code Status History Code Status Date Activated Date Inactivated Comments Full Code-Unverified 02/10/2014 4:40 PM 02/15/2014 5:07 P M Documents on File Type Date Recorded Patient Parts Sales Associate Expl anation Living Will 03/21/2014 Documents on File Type Date Recorded Patient Parts Sales Associate Expl anation Living Will 03/21/2014 Date Activated Date Inactivated Comments 02/15/2014 5:07 PM 02/17/2014 10:50 PM Date Activated Date Inactivated Comments 02/10/2014 4:40 PM 02/15/2014 5:07 PM Chief Complaint * Patient here for Kenalog injection * 1ml Kenalog given IM Right gluteus * pt. tolerated well * Lot [id number] * exp 02/13/22 * [facility] [id number] medck* A telephone visit (audio only) between the patient (at the originating site) and the provider (at the distant site) was utilized to provide this telehealth service. * Verbal consent was requested and obtained from TRAVIS BARNEY on this date, 07/09/2021 01:30 PM , for a telehealth visit. * COVID-19 * A telephone visit (audio only) between the patient (at the originating site) and the provider (at the distant site) was utilized to provide this telehealth service. * Verbal consent was requested and obtained from TRAVIS BARNEY on this date, 07/09/2021 01:30 PM , for a telehealth visit. * COVID-19 medck* pt. c/o nausea and diarrhea on Fri, vomiting black on Sat. now dry heaves, has not been able to eator drink x5 days. * An interactive audio and video telecommunication system which permits real time communications between the patient (at the originating site) and provider (at the distant site) was utilized to providethis telehealth service. * Verbal consent was requested and obtained from TRAVIS BARNEY on this date, 10/17/2021 10:20 AM , for a telehealth visit. * Patient here for Kenalog injection for allergies * Pt. stated 40mg that he got in November 2020 worked well. * 1ml (40mg) Kenalog given IM Left Gluteus * Pt. tolerated well * Lot [id number] * Exp 11/13/22 * [facility] [id number] URImedck* sinus pressure * drainage * cough cough Reason for Referral Specialty Diagnoses / Procedures Referred By Contac t Referred To Contact Diagnoses DONTRELL (obstructive sleep apnea) Procedures CPAP / BIPAP SETUP Amalia Knight, MARKETING AND COMMUNICATIONS OFFICER-SPA TECHNICIAN [address] [place] [address] Referral ID Status Reason Start Date Expiration Date V isits Requested Visits Authorized [id number] New Request 04/03/2022 04/28/2023 1 1 Specialty Diagnoses / Procedures Referred By Contac t Referred To Contact Diagnoses Hypogonadotropic hypogonadism Panhypopituitarism Adrenal insufficiency Pituitary adenoma Growth hormone deficiency (human) Vitamin D deficiency Type 2 diabetes mellitus treated without insulin Procedures MRI PITUITARY WITH AND WITHOUT CONTRAST FL MRI BRAIN COMBO Pema Maguire PA-C [address] [place] [address] [place] [address] Referral ID Status Reason Start Date Expiration Date Visits Re quested Visits Authorized [id number] Closed 08/20/2021 09/14/2022 1 1 Specialty Diagnoses / Procedures Referred By Contac t Referred To Contact Radiology Diagnoses Arthropathy of cervical facet joint Procedures XR cervical spine 2-3 views Althea Yang MD [address] [facility], [address] [address] Referral ID Status Reason Start Date Expiration Date Visits Requested Visits Authorized [id number] Authorized Perform Procedure 02/17/2024 02/16/2025 1 1 Specialty Diagnoses / Procedures Referred By Contac t Referred To Contact Primary Care Diagnoses Type 2 diabetes mellitus without complication, without long-term current use of insulin (Multi) Procedures Follow Up In Primary Care - Established Althea Yang MD [address] [facility], [address] [place] [address] Referral ID Status Reason Start Date Expiration Date V isits Requested Visits Authorized [id number] Authorized 02/17/2024 02/16/2025 1 1 Additional Source Comments (unrecognized sect ion and content) No Status Records FoundNo Status Records FoundNo Status Records FoundNo Status Records FoundNo Status Records FoundNo Status Records FoundNo Status Records FoundNo Status Records FoundNo Status Records FoundNo Status Records FoundNo Status Records Found INFORMATION SOURCE (unrecogn ized section and content) DATE CREATED AUTHOR 01/20/[address] [facility] DATE CREATED AUTHOR AUTHOR'S ORGANIZ ATION 08/03/2022 [employer] DATE CREATED AUTHOR AUTHOR'S ORGANIZ ATION 02/05/[address] [facility] DATE CREATED AUTHOR AUTHOR'S ORGANIZ ATION 06/26/2023 [facility] DATE CREATED AUTHOR AUTHOR'S ORGANIZ ATION 02/15/2024 [facility] DATE CREATED AUTHOR AUTHOR'S ORGANIZ ATION 03/07/2024 [facility] DATE CREATED AUTHOR AUTHOR'S ORGANIZ ATION 07/08/2024 [facility] DATE CREATED AUTHOR AUTHOR'S ORGANIZ ATION 11/14/2024 [facility] DATE CREATED AUTHOR AUTHOR'S ORGANIZ ATION 11/21/2024 [facility] DATE CREATED AUTHOR AUTHOR'S ORGANIZ ATION 11/28/[address] [facility] DATE CREATED AUTHOR AUTHOR'S ORGANIZ ATION 12/07/2024 [facility] Reason for Visit (unrecogniz ed section and content) Reason Comments Med Management Specialty Diagnoses / Procedures Referred By Contac t Referred To Contact Primary Care Diagnoses Type 2 diabetes mellitus without complication, without long-term current use of insulin ([facility]/HCC) Procedures Follow Up In Primary Care - Established Althea Yang MD [address] [facility], [address] [place] [address] Referral ID Status Reason Start Date Expiration Date Visits Re quested Visits Authorized [id number] Closed 02/10/2023 08/09/2023 1 1 Reason Comments Follow-up Reason Comments Labs Only Specialty Diagnoses / Procedures Referred By Contac t Referred To Contact Diagnoses Hypogonadotropic hypogonadism Panhypopituitarism Adrenal insufficiency Pituitary adenoma Growth hormone deficiency (human) Vitamin D deficiency Type 2 diabetes mellitus treated without insulin Procedures MRI PITUITARY WITH AND WITHOUT CONTRAST FL MRI BRAIN ROBERTO Pema Maguire PA-C [address] [place] [address] Referral ID Status Reason Start Date Expiration Date Visits Re quested Visits Authorized [id number] Closed 08/20/2021 09/14/2022 1 1 Reason Comments Follow-up Panhypopituitarism Lab Review Labs drawn today ruthy or to appt Imaging Results MRI today prior to a ppt Other Feels like it takes forever to get over illnesses Reason Comments Med Management Wants Kenalog for al lergies, discuss HgbA1c Reason Comments Chest Pain Patient to ED refere nce chest tightness with dizziness, nausea/vomiting, body aches/chills, congestion/cough and sore throat. He fell this morning hitting his head on bathroom wall. He tested positive for COVID yesterday. Reason Comments Follow-up Panhypopituitarism/h ypogonadism Other Has not been able to get growth hormone for months, states he does not qualify for MAP due to private insurance Reason Comments Follow-up Reason Comments Med Management Soreness in neck Specialty Diagnoses / Procedures Referred By Contac t Referred To Contact Primary Care Procedures Follow Up In Primary Care - Established Althea Yang MD [address] [facility], [facility] [address] [place] [address] Referral ID Status Reason Start Date Expiration Date V isits Requested Visits Authorized [id number] Authorized 08/14/2023 08/13/2024 1 1 Reason Comments Lump on collar bone Pt is here today for a lump on his right collar bone. Went to the [facility] on 06/13/24 where they removed this, reports it is still draining and there is a smell sometimes. Every once in a while there is pain. Denies fever. Did put him on an abx. Reason Comments 1 week follow up PT is doing a virtua l visit for the a 1 week fuv on an abscess. Reason Comments Med Management Left hand pain off/o n Reason Comments Follow-up Hypogonadotropic hyp ogonadismRecent labworkWants to discuss getting back on growth hormoneHas been having generalized joint pain and when he was on growth hormone before that had gone away Reason Comments Injections Trigger finger injec tion left hand Reason Comments 3 month Pt is here today for 3 month fuv. Reports he did have blood work done needed for appointment. Care Teams (unrecognized sec tion and content) Test Tech Relationship Specialty Start Date End Date Althea Yang MD [address] [place] [address] PCP - General Family Medicine 12/30/14 Jade Ram, RN Registered Nurse 02/11/14 Test Tech Relationship Specialty Start Date End Date Althea Yang MD [address] [place] [address] PCP - General Family Medicine 12/30/14 Jade Ram, RN Registered Nurse 02/11/14 Test Tech Relationship Specialty Start Date End Date Althea Yang MD [address] [place] [address] PCP - General Family Medicine 12/30/14 Jade Ram, RN Registered Nurse 02/11/14 Test Tech Relationship Specialty Start Date End Date Althea Yang MD [address] [place] [address] PCP - General Family Medicine 12/30/14 Jade Ram RN Registered Nurse 02/11/14 Test Tech Relationship Specialty Start Date End Date Althea Yang MD [address] [facility], [facility] [address] [place] [address] PCP - General 02/16/19 Test Tech Relationship Specialty Start Date End Date Althea Yang MD [address] [facility], [facility] [address] [place] [address] PCP - General 02/16/19 Test Tech Relationship Specialty Start Date End Date Althea Yang MD [address] [facility], [facility] [address] [place] [address] PCP - General 02/16/19 Test Tech Relationship Specialty Start Date End Date Althea Yang MD [address] [facility], [facility] [address] [place] [address] PCP - General 02/16/19 Test Tech Relationship Specialty Start Date End Date Althea Yang MD [address] [facility], [facility] [address] [place] [address] PCP - General 02/16/19 Test Tech Relationship Specialty Start Date End Date Althea Yang MD [address] [place] [address] PCP - General Family Medicine 12/30/14 Jade Ram, RN Registered Nurse 02/11/14 Test Tech Relationship Specialty Start Date End Date Althea Yang MD [address] [place] [address] PCP - General Family Medicine 12/30/14 Jade Ram, RN Registered Nurse 02/11/14 Test Tech Relationship Specialty Start Date End Date Althea Yang MD [address] [place] [address] PCP - General Family Medicine 12/30/14 Jade Ram, RN Registered Nurse 02/11/14 Test Tech Relationship Specialty Start Date End Date Althea Yang MD [address] [facility], [facility] [address] [place] [address] PCP - General 02/16/19 Althea Yang MD [address] [facility], [facility] [address] [place] [address] PCP - MMO ACO PCP 06/16/23 Test Tech Relationship Specialty Start Date End Date Althea Yang MD [address] [facility], [facility] [address] [place] [address] PCP - MMO ACO PCP 06/16/23 Victoria Alexandre, MARKETING AND COMMUNICATIONS OFFICER-SPA TECHNICIAN [address] [facility], [facility] [address] [place] [address] PCP - General Family Medicine 06/22/24 Test Tech Relationship Specialty Start Date End Date Althea Yang MD [address] [facility], [address] [place] [address] PCP - MMO ACO PCP 06/16/23 Victoria Alexandre, MARKETING AND COMMUNICATIONS OFFICER-SPA TECHNICIAN [address] [facility], [address] [place] [address] PCP - General Family Medicine 06/22/24 Test Tech Relationship Specialty Start Date End Date Althea Yang MD [address] [facility], [address] [place] [address] PCP - MMO ACO PCP 06/16/23 Victoria Alexandre, MARKETING AND COMMUNICATIONS OFFICER-SPA TECHNICIAN [address] [facility], [address] [place] [address] PCP - General Family Medicine 06/22/24 Test Tech Relationship Specialty Start Date End Date Althea Yang MD [address] [place] [id number] PCP - General Family Medicine 12/30/14 Jade Ram, RN Registered Nurse 02/11/14 Test Tech Relationship Specialty Start Date End Date Victoria Alexandre, MARKETING AND COMMUNICATIONS OFFICER-SPA TECHNICIAN [address] [facility], [facility] [address] [place], [facility] PCP - General Family Medicine 06/22/24 Test Tech Relationship Specialty Start Date End Date Victoria Alexandre, MARKETING AND COMMUNICATIONS OFFICER-SPA TECHNICIAN [address] [facility], [facility] [address] [place] [id number] PCP - General Family Medicine 06/22/24 <item> Privacy Markings (unrecogniz ed section and content) Section Author: Alia Bishop PROHIBITION ON REDISCLOSURE OF CONFIDENTIAL INFORMATION This notice accompanies a disclosure of information concerning a client made to you with the consent of such client. Scheduled Active and Recently Administ ered Medications (unrecognized section and content) Medication Order 06/21/2023 06/22/2023 06/23/2023 acetaminophen (Tylenol) tablet 975 mg (COMPLETED) 975 mg, oral, Once, On Fri06/23/23 at 1405, For 1 dose, If ordered PRN for pain, nurse is permitted to administer this medication for higher pain scores based on patient preference? Yes 1414 (Given - Provid er: Shawnee Tolbert RN) iohexol (OMNIPaque) 350 mg iodine/mL solution 67 mL (COMPLETED) 67 mL, intravenous, Once in imaging, Starting on Fri06/23/23 at 1319, For 1 dose 1320 (Given - Provid er: Cheli Gudino) ondansetron (Zofran) injection 4 mg (COMPLETED) 4 mg, intravenous, Once, On Fri06/23/23 at 1050, For 1 dose, When administering via IV Push, administer over 3-5 minutes. 1100 (Given - Provid er: Yazmin Bowen RN) sodium chloride 0.9 % bolus 1,000 mL (COMPLETED) 1,000 mL, intravenous, at 2,000 mL/hr, Administer over 30 Minutes, Once, On Fri06/23/23 at 1050, For 1 dose 1059 (New Bag - Prov ider: Yazmin Bowen RN)1447 (Stopped - Provider: Shawnee Tolbert RN) FOR RECORDS PERTAINING TO PATIENTS WHO ARE OR HAVE BEEN ENROLLED IN A CHEMICAL DEPENDENCY/SUBSTANCEABUSE PROGRAM, SOME INFORMATION MAY BE OMITTED. This clinical summary was aggregated from multiple sources. Caution should be exercised in using it in the provision of clinical care. This summary normalizes information from multiple sources, and as a consequence, information in this document may materially change the coding, format and clinical context of patient data. In addition, data may be omitted in some cases. CLINICAL DECISIONS SHOULD BE BASED ON THE PRIMARY CLINICAL RECORDS. [employer] provides no warranty or guarantee of the accuracy or completeness of information in this document.
[2024-12-11 19:50] LABS: Absolute Neutrophil Count 3.8 X10^3/uL (2.0-7.7); Basophil# 0.05 X10^3/uL; Basophil% 0.6 % (0-1); Eosinophil# 0.21 X10^3/uL; Eosinophils% 2.5 % (0-5); Hematocrit 47.3 % (40-54); Hemoglobin 16.3 g/dL (13.0-16.5); Lymphocyte % 39.9 % (19-41); Mean Corp Hgb Conc 34.5 g/dL (32-36); Mean Corpuscular Volume 84.2 fL (80-94); Mean Platelet Vol. 10.8 fl (6.2-12.0); Monocyte# 1.08 X10^3/uL; Monocyte% 12.7 % (0-10); NRBC Flagged by Analyzer 0 % (0-5); Neutrophil # 3.76 X10^3/uL (2.7-7.7); Neutrophil % 44.1 % (47-70); Platelet Count 194 K/mm3 (150-450); RBC Distribution Width CV 12.2 % (11.6-14.6); RBC Distribution Width SD 36.7 fl (35.1-43.9); Red Blood Count 5.62 M/mm3 (4.6-6.2); White Blood Count 8.5 K/mm3 (4.4-11.0)
[2024-12-11 19:58] LABS: Bacteria 0 SEEN /hpf (None Seen)
[2024-12-11 20:04] LABS: Color, Urine Yellow (Yellow); Glucose, Dipstick Normal (Normal); Ketone-Dipstick Negative (Negative); Leukocyte Esterase-Dipstick 100 /ul (Negative); Nitrite-Dipstick Negative (Negative); Occult Blood-Urine 10 /ul (Negative); Protein-Dipstick 30 mg/dl (Negative); Specific Gravity, Urine 1.015 (1.002-1.030); Urine Bilirubin Dipstick Negative (Negative); Urine Clarity Clear (Clear); Urine Urobilinogen Normal (Normal)
[2024-12-11 20:15] LABS: ALB/GLOB Ratio 1.1 RATIO (0.9-2.4); AST(SGOT) 32 U/L (<=37); Alanine Aminotransfer ALT/SGPT 17 U/L (<=46); Albumin, Serum 3.8 g/dL (3.4-4.8); Alkaline Phosphatase 86 U/L (40-129); Anion Gap 13 (5-15); BUN 12 mg/dL (4-19); BUN/Creat Ratio 10.1 RATIO (10-20); Calcium,Total 9.7 mg/dL (7.6-11.0); Carbon Dioxide 25.5 mmol/L (21.0-32.0); Chloride 101 mmol/L (98-108); Creatinine, Serum 1.19 mg/dL (0.70-1.20); EST Glomerular Filtration Rate 69 (>60); Globulin 3.4 g/dL (2.2-4.2); Glucose 82 mg/dL (70-99); Potassium 4.5 mmol/L (3.3-5.1); Protein, Total 7.1 g/dL (5.9-8.4); Sodium Level 139 mmol/L (133-145); Total Bilirubin 0.55 mg/dL (0.00-1.30)
[2024-12-11 20:52] VITALS: BP 119/85; PULSE 78; RESP 16; O2SAT 97
[2024-12-11 20:52] LABS: Red Blood Cells-Urine 0-5 SEEN /hpf (0-5); Squamous Epithelial Cells - UA 0-5 SEEN /hpf (0-5); White Blood Cells 10-25 SEEN /hpf (0-5)
[2024-12-11 20:54] LABS: Mucous, Urine RARE /hpf (<or=2+)
[2024-12-11 21:08] VITALS: BP 119/85; PULSE 75; RESP 16; TEMP 36.9; O2SAT 98
== END 2024-12-11 21:19 | disposition home or self-care (01) ==
PROVIDERS: Emergency Provider Emergency Medicine; Visit Provider Emergency Medicine
DX: S39.012A Strain of muscle, fascia and tendon of lower back, initial encounter (principal); E11.9 Type 2 diabetes mellitus without complications; X58.XXXA Exposure to other specified factors, initial encounter; R10.31 Right lower quadrant pain; R53.83 Other fatigue; R82.81 Pyuria; Z87.891 Personal history of nicotine dependence
CPT/HCPCS: 80053; 81001; 85025; 96374; 99283; A4216